=== PATIENT | male | born 1965 | race Caucasian/White ===

== ENCOUNTER 2017-04-21 19:04 | Inpatient (IN) | payer OTHER ==
[2017-04-21] VITALS (8 sets, daily range): BP systolic 83–134; BP diastolic 54–66; PULSE 100–122; RESP 18–22; TEMP 97.6; O2SAT 97–98
[~2017-04-21] VITALS: Ht 182.9 cm; Wt 92.2 kg
[2017-04-21] MEDS ORDERED: SODIUM CHLOR 0.9% 1000 ML INJ 800 ML IV ONE (19:14)
--- NOTE | 2017-04-21 19:31 | PD ---
HPI Chief Complaint: General Weakness Time Seen by Provider: 19:08 Travel History International Travel<30 days: No Contact w/Intl Traveler<30days: No Traveled to known affect area: No History of Present Illness HPI 52-year-old male brought in by ambulance from home for evaluation of weakness. The patient drinks about 18 beers daily and was told that he was diagnosed with hepatitis a couple years ago. He states he was sitting on his chair when he went to stand up he fell forward and was unable to get off the ground. He denies head injury or LOC. States that he has had worsening weakness over the last 2 weeks. No abdominal pain. No fevers or chills. No nausea, vomiting, or diarrhea. Last alcoholic beverage was yesterday. He denies Tylenol use. [facility]LY [facility] Past Medical History Diminished Hearing: No Hepatitis: Yes Integumentary: Yes (maría area excoriated) Tetanus Vaccination: Unknown Influenza Vaccination: No Past Surgical History Surgical History: No Previous Surgery Social History Alcohol Use: Yes (, drinks usually 18 beers a day) Tobacco Use: Yes (1- 1/2 packs a day) Substance Use: No Allergies-Medications (Allergen,Severity, Reaction): Coded Allergies: No Known Allergies (Unverified , 04/21/17) Reported Meds & Prescriptions Reported Meds & Active Scripts Active No Active Prescriptions or Reported Medications Review of Systems Except as stated in HPI: all other systems reviewed are Neg Physical Exam Narrative GENERAL: Well-developed, well-nourished, awake, shivering/diffuse tremors SKIN: Diffuse jaundice, diaphoretic. HEAD: Atraumatic. Normocephalic. EYES: Pupils equal and round. Scleral icterus. No injection or drainage. ENT: No nasal bleeding or discharge. Mucous membranes pink and dry. Ketotic odor on breath. NECK: Trachea midline. No JVD. CARDIOVASCULAR: Tachycardic, regular. RESPIRATORY: No accessory muscle use. Clear to auscultation. Breath sounds equal bilaterally. GASTROINTESTINAL: Abdomen soft, non-tender, nondistended. No fluid wave. MUSCULOSKELETAL: No obvious deformities. No clubbing. No cyanosis. No edema. NEUROLOGICAL: Awake and alert. No obvious cranial nerve deficits. Motor grossly within normal limits. Normal speech. PSYCHIATRIC: Appropriate mood and affect; insight and judgment normal. Data Data Last Documented VS Vital Signs Date Time Temp Pulse Resp B/P (MAP) Pulse Ox O2 Delivery O2 Flow Rate FiO2 04/21/17 21:24 104 18 124/66 (85) Room Air 04/21/17 19:48 97 2.00 04/21/17 19:46 97.6 Orders Orders Electrocardiogram (04/21/17 19:14) Complete Blood Count With Diff (04/21/17 19:14) Comprehensive Metabolic Panel (04/21/17 19:14) Prothrombin Time / Inr (Pt) (04/21/17 19:14) Act Partial Throm Time (Ptt) (04/21/17 19:14) Lactic Acid Sepsis Protocol (04/21/17 19:14) Urinalysis - C+S If Indicated (04/21/17 19:14) Blood Culture (04/21/17 19:14) Chest, Single Ap (04/21/17 19:14) Blood Glucose (04/21/17 19:14) Ecg Monitoring (04/21/17 19:14) Iv Access Insert/Monitor (04/21/17 19:14) Oximetry (04/21/17 19:14) Oxygen Administration (04/21/17 19:14) Ct Abd/Pel W Iv Contrast(Rout) (04/21/17 19:14) Sodium Chlor 0.9% 1000 Ml Inj (Ns 1000 M (04/21/17 19:14) Hepatitis Profile (04/21/17 19:14) Tylenol (Acetaminophen) (04/21/17 19:14) Beta Hydroxybutyrate (Acetone) (04/21/17 19:14) Alcohol (Ethanol) (04/21/17 19:14) Ammonia (04/21/17 19:42) Direct Bilirubin (04/21/17 19:50) Iohexol 350 Inj (Omnipaque 350 Inj) (04/21/17 21:45) Piperacil-Tazo 3.375 Gm Premix (Zosyn 3. (04/21/17 22:15) Sodium Chlor 0.9% 1000 Ml Inj (Ns 1000 M (04/21/17 22:19) Thiamine Inj (Thiamine Inj) (04/21/17 22:30) Vital Signs (Adult) Q4H (04/21/17 22:34) Bedside Glucose LESVIA.AC&HS (04/21/17 22:34) Intake + Output LESVIA.QSHIFT (04/21/17 22:34) Alcohol Withdrawal Asmt-Ciwa Q4HX18 (04/21/17 22:34) ^ Seizure Precautions (04/21/17 22:34) Folic Acid (Folate) (04/22/17 09:00) Thiamine (Vit B1) (Vitamin B1) (04/22/17 09:00) Multivitamins-Minerals Therap (Theragran (04/22/17 09:00) Consult Cm-Etoh Abuse Dc Plan (04/21/17 ) Flumazenil Inj (Romazicon Inj) (04/21/17 22:45) Lorazepam (Ativan) (04/21/17 22:45) Lorazepam Inj (Ativan Inj) (04/21/17 22:45) Lorazepam (Ativan) (04/21/17 22:45) Lorazepam Inj (Ativan Inj) (04/21/17 22:45) Lorazepam Inj (Ativan Inj) (04/21/17 22:45) Lorazepam Inj (Ativan Inj) (04/21/17 22:45) Haloperidol Inj (Haldol Inj) (04/21/17 22:45) Piperacil-Tazo 4.5 Gm Premix (Zosyn 4.5 (04/22/17 04:00) Admit To Inpatient (04/21/17 ) Vital Signs (Adult) Q4H (04/21/17 22:34) Activity Oob With Assistance (04/21/17 22:34) Spooling Operator / Telemetry .CONTINUOUS (04/21/17 22:34) Intake + Output LESVIA.QSHIFT (04/21/17 22:34) Diet Regular Basic (04/22/17 Breakfast) Sodium Chlor 0.9% 1000 Ml Inj (Ns 1000 M (04/21/17 22:34) Sodium Chloride 0.9% Flush (Ns Flush) (04/21/17 22:45) Sodium Chloride 0.9% Flush (Ns Flush) (04/22/17 09:00) Ondansetron Inj (Zofran Inj) (04/21/17 22:45) Comprehensive Metabolic Panel (04/22/17 06:00) Complete Blood Count With Diff (04/22/17 06:00) Prothrombin Time / Inr (Pt) (04/22/17 06:00) Pharmacologic Contraindication (04/21/17 22:34) Morphine Inj (Morphine Inj) (04/21/17 22:45) Oxycodone (Roxicodone) (04/21/17 22:45) Docusate Sodium-Senna (María-Colace) (04/22/17 09:00) Magnesium Hydroxide Liq (Milk Of Magnesi (04/21/17 22:45) Sennosides (Senokot) (04/21/17 22:45) Bisacodyl Supp (Dulcolax Supp) (04/21/17 22:45) Lactulose Liq (Lactulose Liq) (04/21/17 22:45) Inpatient Certification (04/21/17 ) Labs Laboratory Tests Test 04/21/17 19:30 04/21/17 21:17 04/21/17 21:55 04/21/17 22:00 White Blood Count 7.2 TH/MM3 Red Blood Count 3.57 MIL/MM3 Hemoglobin 12.9 GM/DL Hematocrit 38.5 % Mean Corpuscular Volume 108.1 FL Mean Corpuscular Hemoglobin 36.1 PG Mean Corpuscular Hemoglobin Concent 33.4 % Red Cell Distribution Width 17.5 % Platelet Count 70 TH/MM3 Mean Platelet Volume 9.4 FL Neutrophils (%) (Auto) 32.3 % Lymphocytes (%) (Auto) 59.9 % Monocytes (%) (Auto) 7.6 % Eosinophils (%) (Auto) 0.1 % Basophils (%) (Auto) 0.1 % Neutrophils # (Auto) 2.3 TH/MM3 Lymphocytes # (Auto) 4.4 TH/MM3 Monocytes # (Auto) 0.5 TH/MM3 Eosinophils # (Auto) 0.0 TH/MM3 Basophils # (Auto) 0.0 TH/MM3 CBC Comment AUTO DIFF Differential Total Cells Counted 100 Neutrophils % (Manual) 84 % Lymphocytes % 8 % Monocytes % 6 % Eosinophils % 1 % Neutrophils # (Manual) 6.1 TH/MM3 Metamyelocytes 1 % Differential Comment FINAL DIFF MANUAL Platelet Estimate LOW Platelet Morphology Comment NORMAL Red Cell Morphology Comment NORMAL Prothrombin Time 33.1 SEC Prothromb Time International Ratio 2.9 RATIO Activated Partial Thromboplast Time 73.4 SEC Blood Urea Nitrogen 15 MG/DL Creatinine 1.30 MG/DL Random Glucose 75 MG/DL Total Protein 7.1 GM/DL Albumin 2.0 GM/DL Calcium Level 8.3 MG/DL Alkaline Phosphatase 158 U/L Aspartate Amino Transf (AST/SGOT) 424 U/L Alanine Aminotransferase (ALT/SGPT) 128 U/L Total Bilirubin 19.2 MG/DL Sodium Level 118 MEQ/L Potassium Level 3.4 MEQ/L Chloride Level 80 MEQ/L Carbon Dioxide Level 22.7 MEQ/L Anion Gap 15 MEQ/L Estimat Glomerular Filtration Rate 58 ML/MIN Lactic Acid Level 4.7 mmol/L Direct Bilirubin 14.0 MG/DL Ammonia 70 MCMOL/L Acetaminophen Level LESS THAN 2.0 MCG/ML Ethyl Alcohol Level LESS THAN 3 MG/DL B-Hydroxybutyrate 0.98 MMOL/L Urine Color BLACK Urine Turbidity CLOUDY Urine pH 6.5 Urine Specific [place] 1.022 Urine Protein 30 mg/dL Urine Glucose (UA) 100 mg/dL Urine Ketones 15 mg/dL Urine Occult Blood TRACE Urine Nitrite NEG Urine Bilirubin LARGE Urine Leukocyte Esterase TRACE Urine RBC 10-14 /hpf Urine WBC 50-99 /hpf Urine Squamous Epithelial Cells 0-5 /hpf Urine Transitional Epithelial Cells 0-5 /hpf Urine Bacteria FEW /hpf Urine Hyaline Casts 6-9 /lpf Urine Fine Granular Casts 6-9 /lpf Urine Red Blood Cell Casts 0-2 /lpf Urine White Blood Cell Casts 0-2 /lpf Microscopic Urinalysis Comment CATH-CULTURE IND MDM Medical Decision Making Medical Screen Exam Complete: Yes Emergency Medical Condition: Yes Differential Diagnosis Cirrhosis, hepatitis, biliary obstruction, alcohol withdrawal, alcoholic ketoacidosis, ascending cholangitis, liver failure Narrative Course Initial vital signs show heart rate 111, blood pressure 83/54, pulse ox 97% on 2 L nasal cannula, oral temp of 97.6F. Blood pressure improved to 124/66 and heart rate improved to 104 after 2 L of normal saline IV. CBC shows WBC 7.2, hemoglobin 12.9, hematocrit 38.5, platelets 70, MCV 108. CMP is remarkable for sodium 118, chloride 80, T bili 19.2, direct bili 14, AST 424, ALT 128, alkaline phosphatase 158. Ammonia level is 70. Tylenol level is negative. Alcohol level is negative. Beta hydroxybutyrate is 0.98. INR is 2.9. The patient is not on warfarin or Coumadin. This is likely secondary to liver failure. Lactic acid is 4.7. Hepatitis panel ordered. CT abdomen pelvis: CONCLUSION: 1. Hepatomegaly with diffuse severe hypodensity characteristic of steatosis. 2. No evidence of biliary obstructive disease. 3. 10 mm left renal cyst. 4. Otherwise unremarkable exam. Case discussed with on-call hospitalist who will admit the patient to her service. She would like me to contact the on-call product marketing coordinator to make sure the patient can be admitted to [facility]. Case discussed with on-call product marketing coordinator Dr. Wang who states the patient can be admitted here. She recommends antibiotics, hydration, and will see the patient in consultation. Critical Care Narrative Aggregate critical care time was 40 minutes. Time to perform other separately billable procedures was not included in the critical care time. My time did not include minutes spent treating any other patients simultaneously or on activities that did not directly contribute to the patient's treatment. The services I provided to this patient were to treat and/or prevent clinically significant deterioration that could result in: , permanent disability, septic shock, worsening clinical condition I provided critical care services requiring my management, as noted below: Chart data review, documentation time, medication orders and management, vital sign assessments/reviewing monitor data, ordering and reviewing lab tests, ordering and interpreting/reviewing x-rays and diagnostic studies, care of the patient and discussion of the patient with the admitting physicians. Diagnosis Primary Impression: Hyperbilirubinemia Additional Impressions: Hyponatremia Thrombocytopenia Coagulopathy Hyperammonemia Alcohol withdrawal Qualified Codes: F10.230 - Alcohol dependence with withdrawal, uncomplicated Transaminitis Scripts No Active Prescriptions or Reported Meds Major Watkins MD Apr 21, 2017 19:31
[2017-04-21 19:53] LABS: AUTOMATED NEUTROPHIL # 2.3 TH/MM3 (1.8-7.7); BASOPHIL % 0.1 % (0.0-2.0); EOSINOPHIL % 0.1 % (0.0-4.0); HEMATOCRIT 38.5 % (39.0-51.0); LYMPH % 59.9 % (9.0-44.0); LYMPHOCYTE # 4.4 TH/MM3 (1.0-4.8); MEAN CELL VOLUME 108.1 FL (80.0-100.0); MEAN CORPUSCULAR HEMOGLOBIN 36.1 PG (27.0-34.0); MEAN CORPUSCULAR HGB CONC 33.4 % (32.0-36.0); MONO % 7.6 % (0.0-8.0); NEUT % 32.3 % (16.0-70.0); PLATELET COUNT 70 TH/MM3 (150-450); RED BLOOD COUNT 3.57 MIL/MM3 (4.50-5.90); RED CELL DISTRIBUTION WIDTH 17.5 % (11.6-17.2); WHITE BLOOD COUNT 7.2 TH/MM3 (4.0-11.0)
[2017-04-21 20:14] LABS: APTT (PATIENT) 73.4 SEC (24.3-30.1); INTERNATIONAL NORMALIZED RATIO 2.9 RATIO; PROTHROMBIN TIME - PATIENT 33.1 SEC (9.8-11.6)
--- NOTE | 2017-04-21 20:16 | RADRPT ---
EXAM DATE/TIME: 04/21/2017 20:09 [facility] COMPARISON: No previous studies available for comparison. INDICATIONS : Short of breath. MEDICAL HISTORY : None. SURGICAL HISTORY : None. ENCOUNTER: Initial ACUITY: 3 days PAIN SCORE: 7/10 LOCATION: Bilateral chest FINDINGS: A single view of the chest demonstrates the lungs to be symmetrically aerated without evidence of mas s, infiltrate or effusion. The cardiomediastinal contours are unremarkable. Osseous structures are intact. CONCLUSION: No acute disease. Mich Dozier MD on April 21, 2017 at 20:15 Board Certified Radiologist. This report was verified electronically.
[2017-04-21 20:53] LABS: HEMO FLAGS AUTO DIFF
[2017-04-21 21:14] LABS: ALKALINE PHOSPHATASE 158 U/L (45-117); ALT (GPT) 128 U/L (12-78); ANION GAP 15 MEQ/L (5-15); AST (GOT) 424 U/L (15-37); BETA-HYDROXYBUTYRATE 0.98 MMOL/L (0.00-0.39); BICARBONATE 22.7 MEQ/L (21.0-32.0); BLOOD UREA NITROGEN 15 MG/DL (7-18); CHLORIDE 80 MEQ/L (98-107); GLOMERULAR FILTRATION RATE 58 ML/MIN (>89); POTASSIUM 3.4 MEQ/L (3.5-5.1); TOTAL BILIRUBIN ADULT 19.2 MG/DL (0.2-1.0)
[2017-04-21 21:15] LABS: ALCOHOL LESS THAN 3 MG/DL (0-5)
[2017-04-21 21:16] LABS: SODIUM (NA) 118 MEQ/L (136-145)
[2017-04-21 21:30] LABS: ACETAMINOPHEN LESS THAN 2.0 MCG/ML (10.0-30.0)
[2017-04-21] MEDS ORDERED: IOHEXOL 350 MG/ML 10 ML VIAL (for RAD DIAG) IVCONTRAST ONE (21:45)
[2017-04-21 21:46] LABS: LACTIC ACID GHOST NOT REPORTABLE
[2017-04-21 21:48] LABS: EOSINOPHILS 1 % (0-4); METAMYELOCYTES 1 % (0-1); NEUTROPHIL # MANUAL DIFF 6.1 TH/MM3 (1.8-7.7); PLATELET ESTIMATE SMEAR LOW (NORMAL); PLATELET MORPHOLOGY NORMAL (NORMAL); POLYS (SEG NEUTROPHILS) 84 % (16-70); SCAN/DIFF FINAL DIFF MANUAL; WBC DIFF SAMPLE 100
--- NOTE | 2017-04-21 22:07 | RADRPT ---
EXAM DATE/TIME: 04/21/2017 21:33 [facility] COMPARISON: No previous studies available for comparison. INDICATIONS : Jaundice. General weakness x 2 weeks. Evaluate for cirrhosis. IV CONTRAST: 85 cc Omnipaque 350 (iohexol) IV ORAL CONTRAST: No oral contrast ingested. RADIATION DOSE: 18.19 CTDIvol (mGy) MEDICAL HISTORY : Hepatitis A. SURGICAL HISTORY : None. ENCOUNTER: Initial ACUITY: 2 weeks PAIN SCALE: 0/10 LOCATION: Abdomen. TECHNIQUE: Volumetric scanning of the abdomen and pelvis was performed. Using automated exposure control and ad justment of the mA and/or kV according to patient size, radiation dose was kept as low as reasonably achievable to obtain optimal diagnostic quality images. DICOM format image data is available electro nically for review and comparison. FINDINGS: LOWER LUNGS: The visualized lower lungs are clear. LIVER: The liver is enlarged and diffusely hypodense. Portal vein is patent. There are no focal space-occupy ing lesions or evidence of clear duct dilatation. SPLEEN: Normal size without lesion. PANCREAS: Within normal limits. KIDNEYS: Normal in size and shape. There is no mass, stone or hydronephrosis. 10 mm cyst is identified in the upper pole of the left kidney. ADRENAL GLANDS: Within normal limits. VASCULAR: There is no aortic aneurysm. BOWEL/MESENTERY: The stomach, small bowel, and colon demonstrate no acute abnormality. There is no free intraperitone al air or fluid. ABDOMINAL WALL: Within normal limits. RETROPERITONEUM: There is no lymphadenopathy. BLADDER: No wall thickening or mass. REPRODUCTIVE: Within normal limits. INGUINAL: There is no lymphadenopathy or hernia. MUSCULOSKELETAL: Within normal limits for patient age. CONCLUSION: 1. Hepatomegaly with diffuse severe hypodensity characteristic of steatosis. 2. No evidence of biliary obstructive disease. 3. 10 mm left renal cyst. 4. Otherwise unremarkable exam. Mich Dozier MD on April 21, 2017 at 22:00 Board Certified Radiologist. This report was verified electronically.
[2017-04-21] MEDS ORDERED: PIPERACIL-TAZO 3.375 GM PREMIX 50 ML IV ONE (22:15)
[2017-04-21] MEDS ORDERED: SODIUM CHLOR 0.9% 1000 ML INJ 1,000 ML IV SCH (22:19)
[2017-04-21 22:24] LABS: GLUCOSE,URINE 100 mg/dL (NEG); KETONE, URINE 15 mg/dL (NEG); NITRITE,URINE NEG (NEG); PH, URINE 6.5 (5.0-8.5)
[2017-04-21] MEDS ORDERED: THIAMINE INJ 100 MG in SODIUM CHLORIDE 0.9% INJ 100 ML IV ONE (22:30)
[2017-04-21 22:31] LABS: BLOOD, URINE TRACE (NEG)
[2017-04-21 22:32] LABS: URINE COLOR BLACK (YELLW/STRAW)
[2017-04-21 22:34] LABS: RED BLOOD CELL CAST, URINE 0-2 /lpf; WHITE BLOOD CELL CAST, URINE 0-2 /lpf
[2017-04-21 22:35] LABS: COMMENT (UR) CATH-CULTURE IND; CULTURE IF INDICATED CATH CULTURE IND; SQUAMOUS EPITHELIAL CELL URINE 0-5 /hpf (0-5); TRANSITIONAL EPI CELLS, URINE 0-5 /hpf
[2017-04-21 22:36] LABS: BACTERIA, URINE FEW /hpf
[2017-04-21] MEDS ORDERED: MORPHINE SULFATE 4 MG/ML INJ IV PRN (22:45)
[2017-04-21] MEDS ORDERED: HALOPERIDOL LACTATE 5 MG/ML AMP IM PRN (22:45)
[2017-04-21] MEDS ORDERED: ONDANSETRON HCL 4 MG/2 ML VIAL IVP PRN (22:45)
[2017-04-21] MEDS ORDERED: LACTULOSE SYRUP 20 GM/30 ML CUP PO PRN (22:45)
[2017-04-21] MEDS ORDERED: MAGNESIUM HYDROXIDE SUSP 30 ML CUP PO PRN (22:45)
[2017-04-21] MEDS ORDERED: BISACODYL 10 MG SUPP RECTAL PRN (22:45)
[2017-04-21] MEDS ORDERED: LORazepam 1 MG TAB PO PRN (22:45)
[2017-04-21] MEDS ORDERED: LORazepam 2 MG/ML VIAL IV PUSH PRN ×3 (22:45)
[2017-04-21] MEDS ORDERED: SODIUM CHLORIDE 0.9% FLUSH 10 ML FLUSH IV FLUSH PRN (22:45)
[2017-04-21] MEDS ORDERED: FLUMAZENIL 0.5 MG/5 ML VIAL IV PUSH PRN (22:45)
[2017-04-21] MEDS ORDERED: LORazepam 2 MG TAB PO PRN (22:45)
[2017-04-21] MEDS ORDERED: SENNOSIDES 8.6 MG TAB PO PRN (22:45)
[2017-04-21] MEDS: SODIUM CHLOR 0.9% 1000 ML INJ 1,000 ML IV SCH (23:03)
[2017-04-22] VITALS (26 sets, daily range): BP systolic 97–121; BP diastolic 56–78; PULSE 82–102; RESP 13–30; TEMP 97.9–98.1; O2SAT 92–100
[2017-04-22] MEDS: PIPERACIL-TAZO 4.5 GM PREMIX 100 ML IV SCH ×4 (04:20→20:40)
[2017-04-22 06:42] LABS: AUTOMATED NEUTROPHIL # 5.1 TH/MM3 (1.8-7.7); BASOPHIL % 0.6 % (0.0-2.0); EOSINOPHIL # 0.1 TH/MM3 (0-0.4); EOSINOPHIL % 1.1 % (0.0-4.0); HEMATOCRIT 32.7 % (39.0-51.0); LYMPH % 16.8 % (9.0-44.0); LYMPHOCYTE # 1.2 TH/MM3 (1.0-4.8); MEAN CELL VOLUME 105.5 FL (80.0-100.0); MEAN CORPUSCULAR HEMOGLOBIN 36.3 PG (27.0-34.0); MEAN CORPUSCULAR HGB CONC 34.4 % (32.0-36.0); MONO % 10.1 % (0.0-8.0); NEUT % 71.4 % (16.0-70.0); PLATELET COUNT 53 TH/MM3 (150-450); PROTHROMBIN TIME - PATIENT 35.1 SEC (9.8-11.6); RED CELL DISTRIBUTION WIDTH 17.4 % (11.6-17.2); WHITE BLOOD COUNT 7.1 TH/MM3 (4.0-11.0)
[2017-04-22 06:49] LABS: HEMO FLAGS AUTO DIFF
[2017-04-22] MEDS: SODIUM CHLORIDE 0.9% FLUSH 10 ML FLUSH IV FLUSH SCH ×2 (07:12→20:40)
[2017-04-22 07:19] LABS: BICARBONATE 23.9 MEQ/L (21.0-32.0); CALCIUM-PROTEIN CORRECTED 7.7 MG/DL (8.5-10.1); TOTAL BILIRUBIN ADULT 17.8 MG/DL (0.2-1.0)
[2017-04-22] MEDS: MULTIVITAMINS/MINERALS THERAPEUTIC TAB PO SCH (08:27)
[2017-04-22] MEDS: FOLIC ACID 1 MG TAB PO SCH (08:27)
[2017-04-22] MEDS: DOCUSATE SODIUM 50 MG/SENNA 8.6 MG TAB PO SCH ×2 (08:27→20:40)
[2017-04-22] MEDS: THIAMINE HCL 100 MG TAB PO SCH (08:27)
[2017-04-22 09:00] LABS: PLATELET ESTIMATE SMEAR LOW (NORMAL); PLATELET MORPHOLOGY NORMAL (NORMAL); SCAN/DIFF AUTO DIFF CONFIRMED; TARGET CELLS 2+ (NORMAL)
[2017-04-22] MEDS: SODIUM CHLOR 0.9% 1000 ML INJ 1,000 ML IV SCH ×3 (09:24→20:43)
--- NOTE | 2017-04-22 09:53 | EKG ---
Date Performed: 04/21/2017 Time Performed: 19:24:13 PTAGE: 52 years EKG: Likely sinus or ectopic atrial rhythm; although, there is heavy baseline artifact with bijan mmended repeat EKG to exclude atrial dysrhythmia LEFT ATRIAL ENLARGEMENT NONSPECIFIC T-WAVE ABNORMALI TY ABNORMAL ECG NO PREVIOUS TRACING DOCTOR: Brett Berrios Interpretating Date/Time 04/22/2017 09:51:14
--- NOTE | 2017-04-22 11:36 | HHI.HP ---
[facility] Primary Care Physician No Primary Care Physician Admission Diagnosis hyperbilirubinemia, hepatic steatosis, alcohol withdrawal Diagnoses: (1) Acute alcoholic hepatitis (2) Fall (3) Generalized weakness (4) Hyponatremia (5) Thrombocytopenia (6) Hyperammonemia (7) Alcohol withdrawal (8) Hyperbilirubinemia (9) Coagulopathy Chief Complaint: "I fell at home and I couldn't get up" Travel History International Travel<30 Days: No Contact w/Intl Traveler <30 Da: No Traveled to Known Affected Are: No History of Present Illness This is a 52-year-old male with past medical history of alcoholism who presented to the ER for evaluation of weakness. The patient states that he fell out of the chair home and was unable to get up and so he called [facility]. He denied injury or loss of consciousness. The patient states he is a heavy drinker and has been told that he has liver disease. He states his last drink was 4 days ago. He does endorse some hallucinations and thought he saw Rhonda in his room this morning. He denies history of alcohol withdrawal seizures or delirium tremens. He denies Tylenol use. The emergency department he was found to have sodium of 118 and elevation of liver enzymes with severe hyperbilirubinemia. The patient also complains of rash and pain around his scrotum. The patient denies pedal edema. He does endorse 25 pound weight loss over the past year which was unintentional. The patient denies blood in his stools, history of varices. Denies abdominal pain nausea vomiting diarrhea fevers or chills. Review of Systems Constitutional: DENIES: Fever, Chills Respiratory: DENIES: Cough, Shortness of breath Cardiovascular: DENIES: Chest pain, Palpitations, Syncope, Lower Extremity Edema Gastrointestinal: DENIES: Abdominal pain, Black stools, Bloody stools, Constipation, Diarrhea, Nausea, Vomiting Genitourinary: COMPLAINS OF: Testicular Pain, Testicular Swelling, DENIES: Urgency, Hematuria Integumentary: DENIES: Pruritus, Rash Neurologic: COMPLAINS OF: Abnormal gait (poor balance), DENIES: Localized weakness, Seizures Psychiatric: COMPLAINS OF: Hallucinations, DENIES: Anxiety, Confusion Past Family Social History Past Medical History Alcoholism Patient denies heart or lung disease Past Surgical History No surgical history Reported Medications Patient denies taking any medications at home Allergies: Coded Allergies: No Known Allergies (Unverified , 04/21/17) Family History Negative for liver disease Social History He does smoke about a pack of cigarettes a day. He lives by himself in a house. Previously drinking 18 beers a day. Physical Exam Vital Signs Vital Signs Date Time Temp Pulse Resp B/P (MAP) Pulse Ox O2 Delivery O2 Flow Rate FiO2 04/22/17 10:38 96 21 04/22/17 08:50 04/22/17 07:00 92 18 118/60 (79) 99 Room Air 04/22/17 07:00 Room Air 04/22/17 05:45 90 18 103/56 (72) 99 Nasal Cannula 2.00 04/22/17 04:45 92 102/57 (72) 98 Nasal Cannula 2.00 04/22/17 04:20 98 Nasal Cannula 04/22/17 03:45 96 117/62 (80) 98 Nasal Cannula 2.00 04/22/17 02:45 100 104/60 (75) 99 Nasal Cannula 2.00 04/22/17 01:45 100 109/59 (76) 100 Nasal Cannula 2.00 04/22/17 00:45 100 106/59 (75) 98 Nasal Cannula 2.00 04/21/17 23:52 103 18 95/57 (70) 97 Nasal Cannula 2.00 04/21/17 23:10 100 18 103/57 (72) 98 Nasal Cannula 2.00 04/21/17 21:24 104 18 124/66 (85) Room Air 04/21/17 21:05 102 116/66 (83) 04/21/17 19:54 122 22 134/56 (82) 04/21/17 19:48 97 Nasal Cannula 2.00 04/21/17 19:47 97 Nasal Cannula 2.00 04/21/17 19:46 97.6 111 83/54 (64) 97 Nasal Cannula 2.00 04/21/17 19:26 113 Nasal Cannula 2.00 04/21/17 19:09 97.6 111 20 83/54 (64) 97 Physical Exam GENERAL: Well-nourished, well-developed patient. SKIN: Markedly jaundiced. Warm and dry. HEAD: Normocephalic. EYES: Positive scleral icterus. No injection or drainage. NECK: Supple, trachea midline. No JVD or lymphadenopathy. CARDIOVASCULAR: Regular rate and rhythm without murmurs, gallops, or rubs. RESPIRATORY: Breath sounds equal bilaterally. No accessory muscle use. GASTROINTESTINAL: Bowel sounds normoactive. No ascites. Abdomen soft, non- tender, nondistended. EXTREMITIES: 1+ pitting pedal edema bilaterally. NEUROLOGICAL: Awake, alert, and oriented x 3. Non-focal. Laboratory Laboratory Tests Test 04/21/17 19:30 04/21/17 21:17 04/21/17 21:55 04/21/17 22:00 White Blood Count 7.2 Red Blood Count 3.57 Hemoglobin 12.9 Hematocrit 38.5 Mean Corpuscular Volume 108.1 Mean Corpuscular Hemoglobin 36.1 Mean Corpuscular Hemoglobin Concent 33.4 Red Cell Distribution Width 17.5 Platelet Count 70 Mean Platelet Volume 9.4 Neutrophils (%) (Auto) 32.3 Lymphocytes (%) (Auto) 59.9 Monocytes (%) (Auto) 7.6 Eosinophils (%) (Auto) 0.1 Basophils (%) (Auto) 0.1 Neutrophils # (Auto) 2.3 Lymphocytes # (Auto) 4.4 Monocytes # (Auto) 0.5 Eosinophils # (Auto) 0.0 Basophils # (Auto) 0.0 CBC Comment AUTO DIFF Differential Total Cells Counted 100 Neutrophils % (Manual) 84 Lymphocytes % 8 Monocytes % 6 Eosinophils % 1 Neutrophils # (Manual) 6.1 Metamyelocytes 1 Differential Comment FINAL DIFF MANUAL Platelet Estimate LOW Platelet Morphology Comment NORMAL Red Cell Morphology Comment NORMAL Prothrombin Time 33.1 Prothromb Time International Ratio 2.9 Activated Partial Thromboplast Time 73.4 Blood Urea Nitrogen 15 Creatinine 1.30 Random Glucose 75 Total Protein 7.1 Albumin 2.0 Calcium Level 8.3 Alkaline Phosphatase 158 Aspartate Amino Transf (AST/SGOT) 424 Alanine Aminotransferase (ALT/SGPT) 128 Total Bilirubin 19.2 Sodium Level 118 Potassium Level 3.4 Chloride Level 80 Carbon Dioxide Level 22.7 Anion Gap 15 Estimat Glomerular Filtration Rate 58 Lactic Acid Level 4.7 3.0 Direct Bilirubin 14.0 Ammonia 70 Acetaminophen Level LESS THAN 2.0 Ethyl Alcohol Level LESS THAN 3 B-Hydroxybutyrate 0.98 Urine Color BLACK Urine Turbidity CLOUDY Urine pH 6.5 Urine Specific [place] 1.022 Urine Protein 30 Urine Glucose (UA) 100 Urine Ketones 15 Urine Occult Blood TRACE Urine Nitrite NEG Urine Bilirubin LARGE Urine Leukocyte Esterase TRACE Urine RBC 10-14 Urine WBC 50-99 Urine Squamous Epithelial Cells 0-5 Urine Transitional Epithelial Cells 0-5 Urine Bacteria FEW Urine Hyaline Casts 6-9 Urine Fine Granular Casts 6-9 Urine Red Blood Cell Casts 0-2 Urine White Blood Cell Casts 0-2 Microscopic Urinalysis Comment CATH-CULTURE IND Test 04/22/17 06:00 White Blood Count 7.1 Red Blood Count 3.10 Hemoglobin 11.2 Hematocrit 32.7 Mean Corpuscular Volume 105.5 Mean Corpuscular Hemoglobin 36.3 Mean Corpuscular Hemoglobin Concent 34.4 Red Cell Distribution Width 17.4 Platelet Count 53 Mean Platelet Volume 9.1 Neutrophils (%) (Auto) 71.4 Lymphocytes (%) (Auto) 16.8 Monocytes (%) (Auto) 10.1 Eosinophils (%) (Auto) 1.1 Basophils (%) (Auto) 0.6 Neutrophils # (Auto) 5.1 Lymphocytes # (Auto) 1.2 Monocytes # (Auto) 0.7 Eosinophils # (Auto) 0.1 Basophils # (Auto) 0.0 CBC Comment AUTO DIFF Differential Comment AUTO DIFF CONFIRMED Platelet Estimate LOW Platelet Morphology Comment NORMAL Target Cells 2+ Prothrombin Time 35.1 Prothromb Time International Ratio 3.0 Blood Urea Nitrogen 18 Creatinine 1.10 Random Glucose 92 Total Protein 6.2 Albumin 1.8 Calcium Level 7.5 Alkaline Phosphatase 133 Aspartate Amino Transf (AST/SGOT) 369 Alanine Aminotransferase (ALT/SGPT) 111 Total Bilirubin 17.8 Sodium Level 122 Potassium Level 3.0 Chloride Level 86 Carbon Dioxide Level 23.9 Anion Gap 12 Estimat Glomerular Filtration Rate 70 Protein Corrected Calcium 7.7 Date/Time Source Procedure Growth Status 04/21/17 19:35 Blood Peripheral Aerobic Blood Culture - Preliminary NO GROWTH IN 1 DAY Resulted 04/21/17 19:35 Blood Peripheral Anaerobic Blood Culture - Preliminary NO GROWTH IN 1 DAY Resulted 04/21/17 21:55 Urine Catheterized Urine Urine Culture Pending Received Result Diagram: 04/22/17 0600 04/22/17 0600 Imaging Last Impressions Chest X-Ray 04/21/171913 Signed Impressions: Service Date/Time: Friday, April 21, 2017 20:09 - CONCLUSION: No acute disease. Mich Dozier MD Abdomen/Pelvis CT 04/21/171913 Signed Impressions: Service Date/Time: Friday, April 21, 2017 21:33 - CONCLUSION: 1. Hepatomegaly with diffuse severe hypodensity characteristic of steatosis. 2. No evidence of biliary obstructive disease. 3. 10 mm left renal cyst. 4. Otherwise unremarkable exam. Mich Dozier MD Caprini VTE Risk Assessment Caprini VTE Risk Assessment: Mod/High Risk (score >= 2) VTE Pharm Contraindication: Thrombocytopenia(<50) Caprini Risk Assessment Model Point Value = 1 Point Value = 2 Point Value = 3 Point Value = 5 Age 41-60 Minor surgery BMI > 25 kg/m2 Swollen legs Varicose veins or History of unexplained or recurrent spontaneous Oral contraceptives or hormone replacement Sepsis (< 1 month) Serious lung disease, including pneumonia (< 1 month) Abnormal pulmonary function Acute myocardial infarction Congestive heart failure (< 1 month) History of inflammatory bowel disease Medical patient at bed rest Age 61-74 Arthroscopic surgery Major open surgery (> 45 min) Laparoscopic surgery (> 45 min) Malignancy Confined to bed (> 72 hours) Immobilizing plaster cast Central venous access Age >= 75 History of VTE Family history of VTE Factor V Leiden Prothrombin [id number] Lupus anticoagulant Anticardiolipin antibodies Elevated serum homocysteine Heparin-induced thrombocytopenia Other congenital or acquired thrombophilia Stroke (< 1 month) Elective arthroplasty Hip, pelvis, or leg fracture Acute spinal cord injury (< 1 month) Prophylaxis Regimen Total Risk Factor Score Risk Level Prophylaxis Regimen 0-1 Low Early ambulation 2 Moderate Order ONE of the following: *Sequential Compression Device (SCD) *Heparin 5000 units SQ BID 3-4 Higher Order ONE of the following medications: *Heparin 5000 units SQ TID *Enoxaparin/Lovenox 40 mg SQ daily (WT < 150 kg, CrCl > 30 mL/min) *Enoxaparin/Lovenox 30 mg SQ daily (WT < 150 kg, CrCl > 10-29 mL/min) *Enoxaparin/Lovenox 30 mg SQ BID (WT < 150 kg, CrCl > 30 mL/min) AND/OR *Sequential Compression Device (SCD) 5 or more Highest Order ONE of the following medications: *Heparin 5000 units SQ TID (Preferred with Epidurals) *Enoxaparin/Lovenox 40 mg SQ daily (WT < 150 kg, CrCl > 30 mL/min) *Enoxaparin/Lovenox 30 mg SQ daily (WT < 150 kg, CrCl > 10-29 mL/min) *Enoxaparin/Lovenox 30 mg SQ BID (WT < 150 kg, CrCl > 30 mL/min) AND *Sequential Compression Device (SCD) Assessment and Plan Assessment and Plan -Generalized weakness status post fall at home. Likely deconditioning secondary to alcoholism. Consult physical therapy. -Alcoholic liver disease with acute alcoholic hepatitis and severe hyperbilirubinemia. Abdominal CT scan showed hepatomegaly with diffuse severe hypodensity characteristic of steatosis. Patient counseled on alcohol cessation and progressing to cirrhosis and its complications. Continue supportive care, follow CMP. -Alcohol withdrawal syndrome with hallucinosis - high risk for progressing further to DVTs. Continue alcohol withdrawal pathway and rally pack. -Severe hyponatremia, hypervolemic secondary to cirrhosis. Sodium slowly correcting. Continue IV fluids. -Hypokalemia. Check magnesium. Replete potassium. -Thrombocytopenia. Secondary to liver disease. Monitor platelets. -DVT prophylaxis with SCDs. Problem Qualifiers (1) Alcohol withdrawal: Qualified Codes: F10.230 - Alcohol dependence with withdrawal, uncomplicated Liza Rojo MD Apr 22, 2017 11:36
[2017-04-22] MEDS: NYSTATIN 100,000 UNIT/GM CREAM 15 GM TOPICAL SCH ×2 (12:00→20:39)
[2017-04-22] MEDS ORDERED: POTASSIUM CHLORIDE 20 MEQ CONTROLLED RELEASE TAB PO ONE (12:00)
--- NOTE | 2017-04-22 17:16 | MB ---
cc: ABDIFATAH NERI M.D. DATE OF CONSULTATION 04/22/2017 DATE OF [address] Rojo REASON FOR REFERRAL Severe jaundice and alcohol liver disease. HISTORY OF THE PRESENT ILLNESS Thank you for the consultation. A 52-year-old male with significant history of alcoholism. The patient drinks about 18 beers on a daily basis. The patient came to the emergency room after calling 04-13- because he was not able to stand up and fall forward from sitting down. The patient stated that he has been feeling weak in the last few weeks and change in his urination color with pasty stool and deep jaundice. The patient denied any pain but he has overall weakness. He told me that he did not know that he had liver disease or cirrhosis until he was told that yesterday. The patient denied any other symptoms except distension of his abdomen. REVIEW OF SYSTEMS All 12-point negative except HPI. PAST SURGICAL HISTORY Negative. PAST MEDICAL HISTORY Significant alcohol disease, otherwise negative. ALLERGIES NO KNOWN DRUG ALLERGIES. FAMILY HISTORY Noncontributory SOCIAL HISTORY Positive for tobacco and severe alcoholism. MEDICATIONS None at home. PHYSICAL EXAMINATION GENERAL: Alert, oriented no acute distress. Severe jaundice. HEENT: Pupils are round and reactive to light. HEENT: severe scleral icterus. NECK: Supple. CARDIOVASCULAR: Regular rate and rhythm. ABDOMEN: Soft, obese, questionable distension if there is any ascites it is minimal. Nontender. EXTREMITIES: +1 edema. NEUROLOGIC: Alert, oriented, in no acute distress. No focal abnormality. No strength abnormality. PSYCHOLOGIC: Appropriate. LABORATORY DATA White count 7.1, hemoglobin 11.2 which is stable from yesterday it was 12.9. Platelet 53. INR 3.0. Sodium 122, potassium 3.0, creatinine 1.1, total bilirubin 17.8, AST 369, ALT 111, alk phos 133, albumin 1.8. Hepatitis profile is pending. IMAGING Abdominal CT scan showed hepatomegaly with severe hypodensity consistent with steatosis. No biliary obstruction. ASSESSMENT/PLAN A 52-year-old male with alcohol liver disease, possible cirrhosis but most likely alcohol hepatitis with low platelets could be from cirrhosis versus bone marrow suppression and his discriminating factor is more than 30. We can start him on pentoxifylline to try to help with alcohol hepatitis. Meanwhile we will continue supportive care, watch for bleeding. At some point the patient might need upper endoscopy to rule out varices even though the CT scan did not show that. We will follow up with you. Thank you. MD EDWARDO Medina/CALVIN /4:37 PM /5:02 PM
[2017-04-22] MEDS: PENTOXIFYLLINE 400 MG CONTROLLED RELEASE TAB PO SCH (20:40)
[2017-04-22] MEDS: RESP: ALBUTEROL 2.5 MG/IPRATROPIUM 0.5 MG NEB (PRN) NEB (21:39)
[2017-04-23] VITALS (19 sets, daily range): BP systolic 107–137; BP diastolic 68–81; PULSE 92–124; RESP 17–23; TEMP 97.6–98.7; O2SAT 92–98
[2017-04-23] MEDS: PIPERACIL-TAZO 4.5 GM PREMIX 100 ML IV SCH ×4 (04:31→23:16)
[2017-04-23 06:06] LABS: HEMATOCRIT 34.9 % (39.0-51.0); MEAN CELL VOLUME 105.2 FL (80.0-100.0); MEAN CORPUSCULAR HEMOGLOBIN 36.3 PG (27.0-34.0); MEAN CORPUSCULAR HGB CONC 34.5 % (32.0-36.0); PLATELET COUNT 55 TH/MM3 (150-450); RED BLOOD COUNT 3.32 MIL/MM3 (4.50-5.90); RED CELL DISTRIBUTION WIDTH 17.4 % (11.6-17.2); WHITE BLOOD COUNT 6.1 TH/MM3 (4.0-11.0)
[2017-04-23 06:17] LABS: HEMO FLAGS AUTO DIFF
[2017-04-23] MEDS: SODIUM CHLOR 0.9% 1000 ML INJ 1,000 ML IV SCH (06:57)
[2017-04-23 07:00] LABS: INTERNATIONAL NORMALIZED RATIO 2.9 RATIO; PROTHROMBIN TIME - PATIENT 33.7 SEC (9.8-11.6)
[2017-04-23 08:00] LABS: EOSINOPHILS 3 % (0-4); NEUTROPHIL # MANUAL DIFF 4.8 TH/MM3 (1.8-7.7); PLATELET ESTIMATE SMEAR LOW (NORMAL); PLATELET MORPHOLOGY NORMAL (NORMAL); POLYS (SEG NEUTROPHILS) 78 % (16-70); SCAN/DIFF FINAL DIFF MANUAL; TARGET CELLS 2+ (NORMAL); WBC DIFF SAMPLE 100
[2017-04-23 08:26] LABS: ALKALINE PHOSPHATASE 133 U/L (45-117); ALT (GPT) 102 U/L (12-78); ANION GAP 11 MEQ/L (5-15); AST (GOT) 327 U/L (15-37); BICARBONATE 22.5 MEQ/L (21.0-32.0); BLOOD UREA NITROGEN 13 MG/DL (7-18); CHLORIDE 92 MEQ/L (98-107); GLOMERULAR FILTRATION RATE 116 ML/MIN (>89); MAGNESIUM 2.3 MG/DL (1.5-2.5); POTASSIUM 3.3 MEQ/L (3.5-5.1); SODIUM (NA) 125 MEQ/L (136-145); TOTAL BILIRUBIN ADULT 19.4 MG/DL (0.2-1.0)
[2017-04-23] MEDS: MULTIVITAMINS/MINERALS THERAPEUTIC TAB PO SCH (08:26)
[2017-04-23] MEDS: LORazepam 2 MG/ML VIAL IV PUSH PRN ×2 (08:26→15:21)
[2017-04-23] MEDS: THIAMINE HCL 100 MG TAB PO SCH (08:26)
[2017-04-23] MEDS: DOCUSATE SODIUM 50 MG/SENNA 8.6 MG TAB PO SCH ×2 (08:26→21:49)
[2017-04-23] MEDS: SODIUM CHLORIDE 0.9% FLUSH 10 ML FLUSH IV FLUSH SCH ×2 (08:26→21:00)
[2017-04-23] MEDS: FOLIC ACID 1 MG TAB PO SCH (08:26)
[2017-04-23] MEDS: NYSTATIN 100,000 UNIT/GM CREAM 15 GM TOPICAL SCH ×2 (08:27→21:48)
[2017-04-23] MEDS: RESP: ALBUTEROL 2.5 MG/IPRATROPIUM 0.5 MG NEB (PRN) NEB ×3 (08:34→22:30)
[2017-04-23] MEDS: PENTOXIFYLLINE 400 MG CONTROLLED RELEASE TAB PO SCH ×2 (09:00→21:49)
--- NOTE | 2017-04-23 10:22 | HHI.PR ---
Subjective Remarks Mr. Craft is somnolent this morning. He denies confusion or tremors. Objective Vitals Vital Signs Date Time Temp Pulse Resp B/P (MAP) Pulse Ox O2 Delivery O2 Flow Rate FiO2 04/23/17 10:11 18 04/23/17 08:36 95 21 04/23/17 04:15 100 04/23/17 04:15 97.6 100 20 125/76 (92) 96 04/23/17 00:01 98.7 92 18 112/75 (87) 93 04/23/17 00:00 96 04/22/17 23:01 92 18 117/77 (90) 97 04/22/17 22:01 84 15 109/70 (83) 95 04/22/17 21:39 97 21 04/22/17 21:01 88 18 116/78 (91) 96 04/22/17 20:01 98.1 94 18 110/67 (81) 96 04/22/17 20:00 94 04/22/17 20:00 94 04/22/17 19:01 82 15 109/74 (86) 96 04/22/17 18:00 84 04/22/17 17:00 82 04/22/17 17:00 82 13 113/65 (81) 95 04/22/17 17:00 82 13 113/65 (81) 95 04/22/17 16:00 90 15 112/69 (83) 93 04/22/17 16:00 98.1 90 15 112/69 (83) 93 04/22/17 16:00 90 04/22/17 15:00 86 15 121/70 (87) 97 04/22/17 15:00 86 04/22/17 15:00 86 15 121/70 (87) 97 04/22/17 14:00 86 04/22/17 14:00 86 16 103/65 (78) 94 04/22/17 14:00 86 16 103/65 (78) 94 04/22/17 13:00 90 16 116/65 (82) 92 04/22/17 13:00 90 16 116/65 (82) 92 04/22/17 13:00 90 04/22/17 12:00 92 04/22/17 12:00 98.0 92 19 112/66 (81) 95 04/22/17 12:00 92 19 112/66 (81) 95 04/22/17 11:00 92 16 100/63 (75) 95 04/22/17 11:00 92 16 100/63 (75) 95 04/22/17 10:38 96 21 I/O 04/22/17 04/22/17 04/22/17 04/23/17 04/23/17 04/23/17 07:00 15:00 23:00 07:00 15:00 23:00 Intake Total 350 ml 1850 ml 1237 ml Output Total 500 ml 275 ml 800 ml Balance -150 ml 1850 ml 962 ml -800 ml Intake Oral 750 ml 240 ml IV Total 350 ml 1100 ml 997 ml Output Urine Total 500 ml 275 ml 800 ml # Voids 2 2 # Bowel Movements 0 3 Result Diagram: 04/23/1754104/23/17541 Objective Remarks GENERAL: Well-nourished, well-developed patient. SKIN: Markedly jaundiced. Warm and dry. HEAD: Normocephalic. EYES: Positive scleral icterus. No injection or drainage. NECK: Supple, trachea midline. No JVD or lymphadenopathy. CARDIOVASCULAR: Regular rate and rhythm without murmurs, gallops, or rubs. RESPIRATORY: Breath sounds equal bilaterally. No accessory muscle use. GASTROINTESTINAL: Bowel sounds normoactive. No ascites. Abdomen soft, non- tender, nondistended. EXTREMITIES: 1+ pitting pedal edema bilaterally. NEUROLOGICAL: Somnolent, briefly becomes awake but then goes back to sleep. A/P Problem List: (1) Acute alcoholic hepatitis ICD Code: K70.10 - Alcoholic hepatitis without ascites (2) Fall ICD Code: W19.XXXA - Unspecified fall, initial encounter (3) Generalized weakness ICD Code: R53.1 - Weakness (4) Hyponatremia ICD Code: E87.1 - Hypo-osmolality and hyponatremia Status: Acute (5) Thrombocytopenia ICD Code: D69.6 - Thrombocytopenia, unspecified Status: Acute (6) Hyperammonemia ICD Code: E72.20 - Disorder of urea cycle metabolism, unspecified Status: Acute (7) Alcohol withdrawal ICD Code: F10.239 - Alcohol dependence with withdrawal, unspecified Status: Acute (8) Hyperbilirubinemia ICD Code: E80.6 - Other disorders of bilirubin metabolism Status: Acute (9) Coagulopathy ICD Code: D68.9 - Coagulation defect, unspecified Status: Acute Assessment and Plan -Generalized weakness status post fall at home. Likely deconditioning secondary to alcoholism. Consult physical therapy. -Alcoholic liver disease with acute alcoholic hepatitis and severe hyperbilirubinemia. Abdominal CT scan showed hepatomegaly with diffuse severe hypodensity characteristic of steatosis. Patient counseled on alcohol cessation and progressing to cirrhosis and its complications. Continue supportive care, follow CMP. Started on pentoxifylline per gastroenterology. -Alcohol withdrawal syndrome with hallucinosis - high risk for progressing further to DVTs. Continue alcohol withdrawal pathway and rally pack. -Severe hyponatremia, hypervolemic secondary to cirrhosis. Sodium slowly correcting. Continue IV fluids. -Hypokalemia. Check magnesium. Replete potassium. -Thrombocytopenia. Secondary to liver disease. Monitor platelets. -Candidiasis and edema of scrotum. Continue nystatin cream and elevation. -DVT prophylaxis with SCDs. Problem Qualifiers (1) Alcohol withdrawal: Qualified Codes: F10.230 - Alcohol dependence with withdrawal, uncomplicated Liza Rojo MD Apr 23, 2017 10:22
--- NOTE | 2017-04-23 12:59 | HHI.GIFU ---
Subjective Remarks Patient was seen and examined, patient very somnolent today and sleepy hardly to arouse. He seems to have hallucinations and altered by the nurse staff Objective Vitals I&O Vital Signs Date Time Temp Pulse Resp B/P (MAP) Pulse Ox O2 Delivery O2 Flow Rate FiO2 04/23/17 10:11 18 04/23/17 08:36 95 21 04/23/17 04:15 100 04/23/17 04:15 97.6 100 20 125/76 (92) 96 04/23/17 00:01 98.7 92 18 112/75 (87) 93 04/23/17 00:00 96 04/22/17 23:01 92 18 117/77 (90) 97 04/22/17 22:01 84 15 109/70 (83) 95 04/22/17 21:39 97 21 04/22/17 21:01 88 18 116/78 (91) 96 04/22/17 20:01 98.1 94 18 110/67 (81) 96 04/22/17 20:00 94 04/22/17 20:00 94 04/22/17 19:01 82 15 109/74 (86) 96 04/22/17 18:00 84 04/22/17 17:00 82 04/22/17 17:00 82 13 113/65 (81) 95 04/22/17 17:00 82 13 113/65 (81) 95 04/22/17 16:00 90 15 112/69 (83) 93 04/22/17 16:00 98.1 90 15 112/69 (83) 93 04/22/17 16:00 90 04/22/17 15:00 86 15 121/70 (87) 97 04/22/17 15:00 86 04/22/17 15:00 86 15 121/70 (87) 97 04/22/17 14:00 86 04/22/17 14:00 86 16 103/65 (78) 94 04/22/17 14:00 86 16 103/65 (78) 94 04/22/17 13:00 90 16 116/65 (82) 92 04/22/17 13:00 90 16 116/65 (82) 92 04/22/17 13:00 90 I/O 04/22/17 04/22/17 04/22/17 04/23/1717 9/11/17 07:00 15:00 23:00 07:00 15:00 23:00 Intake Total 350 ml 1850 ml 1237 ml Output Total 500 ml 275 ml 800 ml Balance -150 ml 1850 ml 962 ml -800 ml Intake Oral 750 ml 240 ml IV Total 350 ml 1100 ml 997 ml Output Urine Total 500 ml 275 ml 800 ml # Voids 2 2 # Bowel Movements 0 3 Laboratory Laboratory Tests Test 04/23/17 05:42 White Blood Count 6.1 Red Blood Count 3.32 Hemoglobin 12.0 Hematocrit 34.9 Mean Corpuscular Volume 105.2 Mean Corpuscular Hemoglobin 36.3 Mean Corpuscular Hemoglobin Concent 34.5 Red Cell Distribution Width 17.4 Platelet Count 55 Mean Platelet Volume 9.4 CBC Comment AUTO DIFF Differential Total Cells Counted 100 Neutrophils % (Manual) 78 Lymphocytes % 15 Monocytes % 4 Eosinophils % 3 Neutrophils # (Manual) 4.8 Differential Comment FINAL DIFF MANUAL Platelet Estimate LOW Platelet Morphology Comment NORMAL Target Cells 2+ Prothrombin Time 33.7 Prothromb Time International Ratio 2.9 Blood Urea Nitrogen 13 Creatinine 0.71 Random Glucose 98 Total Protein 6.3 Albumin 1.7 Calcium Level 7.8 Magnesium Level 2.3 Alkaline Phosphatase 133 Aspartate Amino Transf (AST/SGOT) 327 Alanine Aminotransferase (ALT/SGPT) 102 Total Bilirubin 19.4 Sodium Level 125 Potassium Level 3.3 Chloride Level 92 Carbon Dioxide Level 22.5 Anion Gap 11 Estimat Glomerular Filtration Rate 116 Ammonia 33 Date/Time Source Procedure Growth Status 04/21/17 19:35 Blood Peripheral Aerobic Blood Culture - Preliminary NO GROWTH IN 2 DAYS Resulted 04/21/17 19:35 Blood Peripheral Anaerobic Blood Culture - Preliminary NO GROWTH IN 2 DAYS Resulted 04/21/17 21:55 Urine Catheterized Urine Urine Culture - Final 50-100,000 CFU/ML MIXED ROZ... Complete Physical Exam HEENT: Pupils round and reactive to light; normocephalic; atraumatic; no jaundice. Throat is clear. NECK: Neck is supple, no JVD, no lymphadenopathy. CHEST: Chest is clear to auscultation and percussion. CARDIAC: Regular rate and rhythm with no murmur gallop or rubs. ABDOMEN: Soft, nondistended, nontender; no hepatosplenomegaly; bowel sounds are present in all four quadrants. EXTREMITIES: No clubbing, cyanosis, or edema. SKIN: Normal; no rash; no jaundice. CASH POSTING CLERK: No focal deficits; very sleepy today most likely secondary to alcohol withdrawal and sedation. Assessment and Plan Plan Severe alcohol liver disease with possible alcoholic hepatitis and alcohol withdrawal syndrome. Patient seems to be hallucinating. Severe elevation of his liver function tests Recommendation Watch for DT Ammonia is normal Continue pentoxifylline Overall guarded prognosis Nadine Lucas MD Apr 23, 2017 12:59
[2017-04-24] VITALS (15 sets, daily range): BP systolic 111–131; BP diastolic 66–81; PULSE 94–116; RESP 16–36; TEMP 97.2–98.7; O2SAT 95–97
[2017-04-24] MEDS: SODIUM CHLOR 0.9% 1000 ML INJ 1,000 ML IV SCH ×3 (01:30→20:50)
[2017-04-24] MEDS: PIPERACIL-TAZO 4.5 GM PREMIX 100 ML IV SCH ×4 (05:01→21:47)
[2017-04-24 05:21] LABS: MEAN CELL VOLUME 106.3 FL (80.0-100.0); MEAN CORPUSCULAR HGB CONC 34.8 % (32.0-36.0); PLATELET COUNT 58 TH/MM3 (150-450); RED BLOOD COUNT 3.29 MIL/MM3 (4.50-5.90); RED CELL DISTRIBUTION WIDTH 17.7 % (11.6-17.2)
[2017-04-24 05:37] LABS: CHLORIDE 93 MEQ/L (98-107); POTASSIUM 3.2 MEQ/L (3.5-5.1); SODIUM (NA) 129 MEQ/L (136-145)
[2017-04-24 05:41] LABS: ANION GAP 12 MEQ/L (5-15); BICARBONATE 23.6 MEQ/L (21.0-32.0)
[2017-04-24 05:42] LABS: BLOOD UREA NITROGEN 10 MG/DL (7-18)
[2017-04-24 05:44] LABS: ALT (GPT) 97 U/L (12-78)
[2017-04-24 05:45] LABS: AST (GOT) 292 U/L (15-37); GLOMERULAR FILTRATION RATE 143 ML/MIN (>89)
[2017-04-24 05:46] LABS: TOTAL BILIRUBIN ADULT 20.7 MG/DL (0.2-1.0)
[2017-04-24 05:47] LABS: ALKALINE PHOSPHATASE 129 U/L (45-117)
[2017-04-24 05:57] LABS: HEMO FLAGS AUTO DIFF
[2017-04-24 06:22] LABS: INTERNATIONAL NORMALIZED RATIO 3.1 RATIO; PROTHROMBIN TIME - PATIENT 35.6 SEC (9.8-11.6)
[2017-04-24 07:09] LABS: BANDS 3 % (0-6); BASOPHILS 1 % (0-2); EOSINOPHILS 2 % (0-4); NEUTROPHIL # MANUAL DIFF 5.3 TH/MM3 (1.8-7.7); PLATELET ESTIMATE SMEAR LOW (NORMAL); PLATELET MORPHOLOGY NORMAL (NORMAL); POLYS (SEG NEUTROPHILS) 73 % (16-70); ROULEAUX PRESENT (NORMAL); SCAN/DIFF FINAL DIFF MANUAL; TARGET CELLS 1+ (NORMAL); WBC DIFF SAMPLE 100
[2017-04-24] MEDS: DOCUSATE SODIUM 50 MG/SENNA 8.6 MG TAB PO SCH ×2 (09:00→20:50)
[2017-04-24] MEDS: MULTIVITAMINS/MINERALS THERAPEUTIC TAB PO SCH (09:17)
[2017-04-24] MEDS: FOLIC ACID 1 MG TAB PO SCH (09:17)
[2017-04-24] MEDS: NYSTATIN 100,000 UNIT/GM CREAM 15 GM TOPICAL SCH ×2 (09:17→20:49)
[2017-04-24] MEDS: PENTOXIFYLLINE 400 MG CONTROLLED RELEASE TAB PO SCH ×2 (09:17→20:49)
[2017-04-24] MEDS: THIAMINE HCL 100 MG TAB PO SCH (09:17)
[2017-04-24] MEDS: SODIUM CHLORIDE 0.9% FLUSH 10 ML FLUSH IV FLUSH SCH ×2 (09:18→20:51)
[2017-04-24] MEDS: POTASSIUM CHLORIDE 20 MEQ CONTROLLED RELEASE TAB PO SCH ×2 (10:14→20:50)
--- NOTE | 2017-04-24 13:30 | HHI.GIFU ---
GI Follow-up Note Consult Follow-up Subjective: Patient laying in bed comfortably, no new complaints except confusion. Objective: PHYSICAL EXAMINATION: Vitals signs stable No fever HEENT: Pupils round and reactive to light; normocephalic; atraumatic; no jaundice. Throat is clear. NECK: Neck is supple, no JVD, no lymphadenopathy. CHEST: Chest is clear to auscultation and percussion. CARDIAC: Regular rate and rhythm with no murmur gallop or rubs. ABDOMEN: Soft, nondistended, nontender; no hepatosplenomegaly; bowel sounds are present in all four quadrants. EXTREMITIES: No clubbing, cyanosis, or edema. SKIN: Normal; no rash; no jaundice. BASTING CLEANER: No focal deficits; alert and oriented times three. Available Data (labs, X- Rays, Procedues) : Last Impressions Chest X-Ray 04/21/171913 Signed Impressions: Service Date/Time: Friday, April 21, 2017 20:09 - CONCLUSION: No acute disease. Mich Dozier MD Abdomen/Pelvis CT 04/21/171913 Signed Impressions: Service Date/Time: Friday, April 21, 2017 21:33 - CONCLUSION: 1. Hepatomegaly with diffuse severe hypodensity characteristic of steatosis. 2. No evidence of biliary obstructive disease. 3. 10 mm left renal cyst. 4. Otherwise unremarkable exam. Mich Dozier MD Laboratory Tests Test 04/23/17 05:42 04/24/17 04:50 White Blood Count 6.1 TH/MM3 7.0 TH/MM3 Red Blood Count 3.32 MIL/MM3 3.29 MIL/MM3 Hemoglobin 12.0 GM/DL 12.2 GM/DL Hematocrit 34.9 % 35.0 % Mean Corpuscular Volume 105.2 FL 106.3 FL Mean Corpuscular Hemoglobin 36.3 PG 37.0 PG Mean Corpuscular Hemoglobin Concent 34.5 % 34.8 % Red Cell Distribution Width 17.4 % 17.7 % Platelet Count 55 TH/MM3 58 TH/MM3 Mean Platelet Volume 9.4 FL 9.4 FL CBC Comment AUTO DIFF AUTO DIFF Differential Total Cells Counted 100 100 Neutrophils % (Manual) 78 % 73 % Lymphocytes % 15 % 15 % Monocytes % 4 % 6 % Eosinophils % 3 % 2 % Neutrophils # (Manual) 4.8 TH/MM3 5.3 TH/MM3 Differential Comment FINAL DIFF MANUAL FINAL DIFF MANUAL Platelet Estimate LOW LOW Platelet Morphology Comment NORMAL NORMAL Target Cells 2+ 1+ Prothrombin Time 33.7 SEC 35.6 SEC Prothromb Time International Ratio 2.9 RATIO 3.1 RATIO Blood Urea Nitrogen 13 MG/DL 10 MG/DL Creatinine 0.71 MG/DL 0.59 MG/DL Random Glucose 98 MG/DL 93 MG/DL Total Protein 6.3 GM/DL 6.3 GM/DL Albumin 1.7 GM/DL 1.6 GM/DL Calcium Level 7.8 MG/DL 8.0 MG/DL Magnesium Level 2.3 MG/DL 2.2 MG/DL Alkaline Phosphatase 133 U/L 129 U/L Aspartate Amino Transf (AST/SGOT) 327 U/L 292 U/L Alanine Aminotransferase (ALT/SGPT) 102 U/L 97 U/L Total Bilirubin 19.4 MG/DL 20.7 MG/DL Sodium Level 125 MEQ/L 129 MEQ/L Potassium Level 3.3 MEQ/L 3.2 MEQ/L Chloride Level 92 MEQ/L 93 MEQ/L Carbon Dioxide Level 22.5 MEQ/L 23.6 MEQ/L Anion Gap 11 MEQ/L 12 MEQ/L Estimat Glomerular Filtration Rate 116 ML/MIN 143 ML/MIN Ammonia 33 MCMOL/L 12 MCMOL/L Band Neutrophils % 3 % Basophils % 1 % Rouleau PRESENT Allergies Coded Allergies Type Severity Reaction Last Updated Verified No Known Allergies 04/21/17 No Active Scripts Medications Dose Route/Sig Max Daily Dose Days Date Category No Active Prescriptions or Reported Medications Rx ASSESSMENT/PLAN: Seen and examined, very icteric but more awake today per nurse. Add solumederol 40mg ivpb q 8 hours. Monitor for D.Ts. Diet as tolerated. It was a pleasure seeing Artur Craft. Thank you for this consult. Entered by: Ryan Chawla MD Apr 24, 2017 13:29
[2017-04-24] MEDS: methylPREDNISolone SOD SUCC 40 MG/1 ML VIAL IV PUSH SCH ×2 (14:00→21:47)
--- NOTE | 2017-04-24 14:36 | HHI.PR ---
Subjective Remarks Patient pulled out his IV 4 times last night. Per his nurse when he is in the room he is alert oriented and cooperative but when he leaves the room the patient will get up and take off his gown and tried to leave. Objective Vitals Vital Signs Date Time Temp Pulse Resp B/P (MAP) Pulse Ox O2 Delivery O2 Flow Rate FiO2 04/24/17 12:00 98.3 104 25 04/24/17 12:00 102 04/24/17 11:01 114 27 127/78 (94) 04/24/17 11:00 114 31 04/24/17 10:00 116 30 04/24/17 09:07 112 36 118/69 (85) 04/24/17 09:01 106 25 04/24/17 09:00 108 26 04/24/17 08:00 98.2 108 26 04/24/17 08:00 104 04/24/17 07:00 100 16 127/80 (96) 04/24/17 05:00 100 26 131/76 (94) 04/24/17 04:00 96 04/24/17 03:00 96 04/24/17 03:00 97.2 96 27 116/71 (86) 04/24/17 01:00 94 27 115/71 (86) 96 04/24/17 00:00 98.7 98 116/81 (93) 97 04/24/17 00:00 98 04/23/17 22:31 95 21 04/23/17 21:00 94 20 121/76 (91) 94 04/23/17 20:10 100 04/23/17 20:10 98.1 100 23 118/69 (85) 94 04/23/17 19:30 95 21 04/23/17 18:19 124 23 137/81 (99) 98 04/23/17 18:00 97 04/23/17 16:15 108 20 123/72 (89) 95 04/23/17 16:00 102 19 95 I/O 04/23/17 04/23/17 04/23/17 04/24/17 04/24/17 04/24/17 07:00 15:00 23:00 07:00 15:00 23:00 Intake Total 1597 ml 1300 ml Output Total 800 ml 200 ml 1400 ml 200 ml Balance 797 ml 1100 ml -1400 ml -200 ml Intake Oral 600 ml IV Total 997 ml 1300 ml Output Urine Total 800 ml 200 ml 1400 ml 200 ml # Voids 2 3 # Bowel Movements 3 3 Result Diagram: 04/24/1744904/24/17449 Objective Remarks GENERAL: Well-nourished, well-developed patient. SKIN: Markedly jaundiced. Warm and dry. HEAD: Normocephalic. EYES: Positive scleral icterus. No injection or drainage. NECK: Supple, trachea midline. No JVD or lymphadenopathy. CARDIOVASCULAR: Regular rate and rhythm without murmurs, gallops, or rubs. RESPIRATORY: Breath sounds equal bilaterally. No accessory muscle use. GASTROINTESTINAL: Bowel sounds normoactive. No ascites. Abdomen soft, non- tender, nondistended. EXTREMITIES: 1+ pitting pedal edema bilaterally. NEUROLOGICAL: Somnolent, briefly becomes awake but then goes back to sleep. A/P Problem List: (1) Acute alcoholic hepatitis ICD Code: K70.10 - Alcoholic hepatitis without ascites (2) Fall ICD Code: W19.XXXA - Unspecified fall, initial encounter (3) Generalized weakness ICD Code: R53.1 - Weakness (4) Hyponatremia ICD Code: E87.1 - Hypo-osmolality and hyponatremia Status: Acute (5) Thrombocytopenia ICD Code: D69.6 - Thrombocytopenia, unspecified Status: Acute (6) Hyperammonemia ICD Code: E72.20 - Disorder of urea cycle metabolism, unspecified Status: Acute (7) Alcohol withdrawal ICD Code: F10.239 - Alcohol dependence with withdrawal, unspecified Status: Acute (8) Hyperbilirubinemia ICD Code: E80.6 - Other disorders of bilirubin metabolism Status: Acute (9) Coagulopathy ICD Code: D68.9 - Coagulation defect, unspecified Status: Acute Assessment and Plan -Generalized weakness status post fall at home. Likely deconditioning secondary to alcoholism. Consult physical therapy. -Alcoholic liver disease with acute alcoholic hepatitis and severe hyperbilirubinemia. Abdominal CT scan showed hepatomegaly with diffuse severe hypodensity characteristic of steatosis. Patient counseled on alcohol cessation and progressing to cirrhosis and its complications. Continue supportive care, follow CMP. Started on pentoxifylline per gastroenterology as well as Solu-Medrol. -Alcohol withdrawal syndrome with hallucinosis - high risk for progressing further to DVTs. Continue alcohol withdrawal pathway and rally pack. Soft restraints as he has pulled out his IV 4 times. -Severe hyponatremia, hypervolemic secondary to cirrhosis. Sodium slowly correcting. Continue IV fluids. -Hypokalemia. Magnesium level within normal limits. Replete potassium. -Thrombocytopenia. Secondary to liver disease. Monitor platelets. -Candidiasis and edema of scrotum. Continue nystatin cream and elevation. -DVT prophylaxis with SCDs. Problem Qualifiers (1) Alcohol withdrawal: Qualified Codes: F10.230 - Alcohol dependence with withdrawal, uncomplicated Liza Rojo MD Apr 24, 2017 14:36
[2017-04-25] VITALS (27 sets, daily range): BP systolic 103–154; BP diastolic 70–99; PULSE 88–109; RESP 16–31; TEMP 97.6–98.7; O2SAT 93–95
[2017-04-25] MEDS: PIPERACIL-TAZO 4.5 GM PREMIX 100 ML IV SCH ×2 (04:06→09:42)
[2017-04-25] MEDS: RESP: ALBUTEROL 2.5 MG/IPRATROPIUM 0.5 MG NEB (PRN) NEB ×2 (05:11→20:45)
[2017-04-25] MEDS: SODIUM CHLOR 0.9% 1000 ML INJ 1,000 ML IV SCH (05:18)
[2017-04-25] MEDS: methylPREDNISolone SOD SUCC 40 MG/1 ML VIAL IV PUSH SCH (05:18)
[2017-04-25 05:22] LABS: CHLORIDE 96 MEQ/L (98-107); POTASSIUM 3.6 MEQ/L (3.5-5.1); SODIUM (NA) 132 MEQ/L (136-145)
[2017-04-25 05:28] LABS: ANION GAP 11 MEQ/L (5-15); BLOOD UREA NITROGEN 9 MG/DL (7-18)
[2017-04-25 05:31] LABS: ALT (GPT) 101 U/L (12-78); AST (GOT) 282 U/L (15-37); GLOMERULAR FILTRATION RATE 152 ML/MIN (>89)
[2017-04-25 05:32] LABS: TOTAL BILIRUBIN ADULT 22.1 MG/DL (0.2-1.0)
[2017-04-25 05:34] LABS: ALKALINE PHOSPHATASE 134 U/L (45-117)
[2017-04-25] MEDS: DOCUSATE SODIUM 50 MG/SENNA 8.6 MG TAB PO SCH (09:00)
[2017-04-25] MEDS: THIAMINE HCL 100 MG TAB PO SCH (09:42)
[2017-04-25] MEDS: FOLIC ACID 1 MG TAB PO SCH (09:43)
[2017-04-25] MEDS: PENTOXIFYLLINE 400 MG CONTROLLED RELEASE TAB PO SCH ×2 (09:43→20:30)
[2017-04-25] MEDS: MULTIVITAMINS/MINERALS THERAPEUTIC TAB PO SCH (09:43)
[2017-04-25] MEDS: SODIUM CHLORIDE 0.9% FLUSH 10 ML FLUSH IV FLUSH SCH ×2 (09:43→20:30)
[2017-04-25] MEDS: POTASSIUM CHLORIDE 20 MEQ CONTROLLED RELEASE TAB PO SCH ×2 (09:43→20:30)
[2017-04-25] MEDS: NYSTATIN 100,000 UNIT/GM CREAM 15 GM TOPICAL SCH ×2 (09:44→20:30)
--- NOTE | 2017-04-25 13:05 | HHI.PR ---
Subjective Remarks Patient seen in room in follow-up for encephalopathy and liver failure Plan discussed with TOBACCO BLENDER. Patient pulling out IV and confused intermittently. He is calm. Quite jaundiced. Care plan also discussed with GI team. Patient tolerating diet Objective Vitals Vital Signs Date Time Temp Pulse Resp B/P (MAP) Pulse Ox O2 Delivery O2 Flow Rate FiO2 04/25/17 09:00 88 16 04/25/17 08:59 88 16 103/70 (81) 04/25/17 08:00 98.6 102 23 118/85 (96) 04/25/17 08:00 104 04/25/17 07:01 104 25 122/82 (95) 04/25/17 07:00 104 25 04/25/17 04:00 105 04/25/17 04:00 98.4 108 24 126/81 (96) 94 04/25/17 00:00 98.6 102 27 123/79 (94) 95 04/25/17 00:00 102 04/24/17 20:00 98.7 102 19 111/66 (81) 95 04/24/17 20:00 102 I/O 04/24/17 04/24/17 04/24/17 04/25/17 04/25/17 04/25/17 07:00 15:00 23:00 07:00 15:00 23:00 Intake Total 400 ml 30 ml 100 ml Output Total 1400 ml 200 ml Balance -1400 ml 200 ml 30 ml 100 ml Intake Oral 30 ml IV Total 400 ml 100 ml Output Urine Total 1400 ml 200 ml # Voids 6 # Bowel Movements 3 6 Result Diagram: 04/24/17 0450 04/25/17 0430 Imaging Last Impressions Chest X-Ray 04/21/171913 Signed Impressions: Service Date/Time: Friday, April 21, 2017 20:09 - CONCLUSION: No acute disease. Mich Dozier MD Abdomen/Pelvis CT 04/21/171913 Signed Impressions: Service Date/Time: Friday, April 21, 2017 21:33 - CONCLUSION: 1. Hepatomegaly with diffuse severe hypodensity characteristic of steatosis. 2. No evidence of biliary obstructive disease. 3. 10 mm left renal cyst. 4. Otherwise unremarkable exam. Mich Dozier MD Objective Remarks GENERAL: This is a well-nourished, confused, jaundiced CARDIOVASCULAR: Regular rate and rhythm without murmurs, gallops, or rubs. RESPIRATORY: Clear to auscultation. Breath sounds equal bilaterally. No wheezes , rales, or rhonchi. GASTROINTESTINAL: Abdomen soft, non-tender, nondistended. Normal active bowel sounds MUSCULOSKELETAL: Extremities without clubbing, cyanosis, or edema. NEURO: Alert & Oriented to person, moves all 4 extremities A/P Problem List: (1) Acute alcoholic hepatitis ICD Code: K70.10 - Alcoholic hepatitis without ascites Plan: We'll continue with steroids, pentoxifylline add Aldactone (2) Fall ICD Code: W19.XXXA - Unspecified fall, initial encounter Plan: Fall at home continue rehabilitation efforts as tolerated (3) Generalized weakness ICD Code: R53.1 - Weakness Plan: b12 level pending (4) Hyponatremia ICD Code: E87.1 - Hypo-osmolality and hyponatremia Status: Acute Plan: Improved somewhat, continue surveillance Avoid volume overload DC IV fluids (5) Thrombocytopenia ICD Code: D69.6 - Thrombocytopenia, unspecified Status: Acute Plan: Secondary to chronic liver disease, no active bleeding at this time continue him on (6) Hyperammonemia ICD Code: E72.20 - Disorder of urea cycle metabolism, unspecified Status: Acute (7) Alcohol withdrawal ICD Code: F10.239 - Alcohol dependence with withdrawal, unspecified Status: Acute Plan: Patient counseled for alcohol dependence and complications including his current liver failure We'll add Librium and follow indices including ammonia level (8) Hyperbilirubinemia ICD Code: E80.6 - Other disorders of bilirubin metabolism Status: Acute Plan: Secondary to liver failure, continue to follow liver eval (9) Coagulopathy ICD Code: D68.9 - Coagulation defect, unspecified Status: Acute (10) Candidiasis of scrotum ICD Code: B37.49 - Other urogenital candidiasis Plan: Continue nystatin (11) Abnormal urinalysis ICD Code: R82.90 - Unspecified abnormal findings in urine Plan: DC Zosyn, urinalysis shows low colony forming units Problem Qualifiers (1) Alcohol withdrawal: Qualified Codes: F10.230 - Alcohol dependence with withdrawal, uncomplicated Rafia Craft MD Apr 25, 2017 13:05
[2017-04-25] MEDS: SPIRONOLACTONE 50 MG TAB PO SCH (14:39)
[2017-04-26] VITALS (16 sets, daily range): BP systolic 109–144; BP diastolic 66–89; PULSE 99–120; RESP 20–31; TEMP 97.6–98.7; O2SAT 95–98
[2017-04-26] MEDS ORDERED: DOCUSATE SODIUM 50 MG/SENNA 8.6 MG TAB PO PRN (09:00)
[2017-04-26] MEDS: THIAMINE HCL 100 MG TAB PO SCH (09:17)
[2017-04-26] MEDS: POTASSIUM CHLORIDE 20 MEQ CONTROLLED RELEASE TAB PO SCH ×2 (09:17→21:18)
[2017-04-26] MEDS: MULTIVITAMINS/MINERALS THERAPEUTIC TAB PO SCH (09:17)
[2017-04-26] MEDS: FOLIC ACID 1 MG TAB PO SCH (09:17)
[2017-04-26] MEDS: NYSTATIN 100,000 UNIT/GM CREAM 15 GM TOPICAL SCH ×2 (09:17→21:18)
[2017-04-26] MEDS: predniSONE 10 MG TAB PO SCH (09:17)
[2017-04-26] MEDS: PENTOXIFYLLINE 400 MG CONTROLLED RELEASE TAB PO SCH ×2 (09:17→21:18)
[2017-04-26] MEDS: SPIRONOLACTONE 50 MG TAB PO SCH (09:17)
[2017-04-26] MEDS: SODIUM CHLORIDE 0.9% FLUSH 10 ML FLUSH IV FLUSH SCH ×2 (09:18→21:18)
--- NOTE | 2017-04-26 12:53 | HHI.PR ---
Subjective Remarks Patient seen in follow-up for alcoholic related metabolic encephalopathy and cirrhosis. Doing better today although mentally still encephalopathic. Care plan discussed with PROJECT FINANCIAL ANALYST. Objective Vitals Vital Signs Date Time Temp Pulse Resp B/P (MAP) Pulse Ox O2 Delivery O2 Flow Rate FiO2 04/26/17 08:00 98.1 112 27 109/66 (80) 04/26/17 08:00 110 04/26/17 07:51 120 31 124/68 (86) 04/26/17 07:00 114 25 04/26/17 04:00 104 04/26/17 04:00 98.7 108 24 117/68 (84) 95 04/26/17 00:00 99 04/26/17 00:00 97.6 99 20 113/69 (84) 95 04/25/17 20:45 93 21 04/25/17 20:00 97.6 96 30 137/83 (101) 94 04/25/17 20:00 97 04/25/17 18:00 98 18 04/25/17 17:59 100 19 134/85 (101) 04/25/17 17:55 109 04/25/17 17:00 94 18 04/25/17 16:59 96 20 142/90 (107) 04/25/17 16:01 106 26 154/99 (117) 04/25/17 16:00 98.3 106 31 04/25/17 15:00 96 19 04/25/17 14:59 96 26 116/85 (95) 04/25/17 14:00 104 23 04/25/17 13:59 106 28 139/88 (105) 04/25/17 13:00 98 04/25/17 12:59 98 123/84 (97) I/O 04/25/17 04/25/17 04/25/17 04/26/17 04/26/17 04/26/17 07:00 15:00 23:00 07:00 15:00 23:00 Intake Total 30 ml 1000 ml 260 ml 360 ml Balance 30 ml 1000 ml 260 ml 360 ml Intake Oral 30 ml 260 ml 360 ml IV Total 1000 ml # Voids 6 6 8 # Bowel Movements 6 8 Result Diagram: 04/24/17 0450 04/25/17 0430 Objective Remarks GENERAL: This is a well-nourished, confused, jaundiced CARDIOVASCULAR: Regular rate and rhythm without murmurs, gallops, or rubs. RESPIRATORY: Clear to auscultation. Breath sounds equal bilaterally. No wheezes , rales, or rhonchi. GASTROINTESTINAL: Abdomen soft, non-tender, nondistended. Normal active bowel sounds MUSCULOSKELETAL: Extremities without clubbing, cyanosis, or edema. NEURO: Alert & Oriented to person and place, moves all 4 extremities A/P Problem List: (1) Acute alcoholic hepatitis ICD Code: K70.10 - Alcoholic hepatitis without ascites Plan: We'll continue with steroids, pentoxifylline, and Aldactone (2) Fall ICD Code: W19.XXXA - Unspecified fall, initial encounter Plan: Fall at home continue rehabilitation efforts as tolerated (3) Generalized weakness ICD Code: R53.1 - Weakness Plan: b12 level greater than 2000 continue rehabilitation efforts (4) Hyponatremia ICD Code: E87.1 - Hypo-osmolality and hyponatremia Status: Acute Plan: Improved somewhat, continue surveillance (5) Thrombocytopenia ICD Code: D69.6 - Thrombocytopenia, unspecified Status: Acute (6) Alcohol withdrawal ICD Code: F10.239 - Alcohol dependence with withdrawal, unspecified Status: Acute Plan: Patient counseled for alcohol dependence and complications including his current liver failure Doing well with Librium, follow indices (7) Hyperbilirubinemia ICD Code: E80.6 - Other disorders of bilirubin metabolism Status: Acute (8) Candidiasis of scrotum ICD Code: B37.49 - Other urogenital candidiasis Plan: Continue nystatin Discharge Planning home when stable Problem Qualifiers (1) Alcohol withdrawal: Qualified Codes: F10.230 - Alcohol dependence with withdrawal, uncomplicated Rafia Craft MD Apr 26, 2017 12:53
[2017-04-26] MEDS ORDERED: SODIUM PHOSPHATE INJ 30 MMOL in SODIUM CHLOR 0.9% 250 ML INJ 250 ML IV ONE (14:00)
--- NOTE | 2017-04-26 14:44 | HHI.GIFU ---
Subjective Remarks Patient was seen and examined, laying in bed, still sleepy, very jaundiced, no new complaints Objective Vitals I&O Vital Signs Date Time Temp Pulse Resp B/P (MAP) Pulse Ox O2 Delivery O2 Flow Rate FiO2 04/26/17 08:00 98.1 112 27 109/66 (80) 04/26/17 08:00 110 04/26/17 07:51 120 31 124/68 (86) 04/26/17 07:00 114 25 04/26/17 04:00 104 04/26/17 04:00 98.7 108 24 117/68 (84) 95 04/26/17 00:00 99 04/26/17 00:00 97.6 99 20 113/69 (84) 95 04/25/17 20:45 93 21 04/25/17 20:00 97.6 96 30 137/83 (101) 94 04/25/17 20:00 97 04/25/17 18:00 98 18 04/25/17 17:59 100 19 134/85 (101) 04/25/17 17:55 109 04/25/17 17:00 94 18 04/25/17 16:59 96 20 142/90 (107) 04/25/17 16:01 106 26 154/99 (117) 04/25/17 16:00 98.3 106 31 04/25/17 15:00 96 19 04/25/17 14:59 96 26 116/85 (95) I/O 04/25/17 04/25/17 04/25/17 04/26/17 04/26/17 04/26/17 07:00 15:00 23:00 07:00 15:00 23:00 Intake Total 30 ml 1000 ml 260 ml 360 ml Balance 30 ml 1000 ml 260 ml 360 ml Intake Oral 30 ml 260 ml 360 ml IV Total 1000 ml # Voids 6 6 8 # Bowel Movements 6 8 Laboratory Laboratory Tests Test 04/26/17 04:30 Ammonia 24 Date/Time Source Procedure Growth Status 04/21/17 19:35 Blood Peripheral Aerobic Blood Culture - Final NO GROWTH IN 5 DAYS Complete 04/21/17 19:35 Blood Peripheral Anaerobic Blood Culture - Final NO GROWTH IN 5 DAYS Complete 04/21/17 21:55 Urine Catheterized Urine Urine Culture - Final 50-100,000 CFU/ML MIXED ROZ... Complete Physical Exam HEENT: Pupils round and reactive to light; normocephalic; atraumatic; severe jaundice. Throat is clear. NECK: Neck is supple, no JVD, no lymphadenopathy. CHEST: Chest is clear to auscultation and percussion. CARDIAC: Regular rate and rhythm with no murmur gallop or rubs. ABDOMEN: Soft, nondistended, nontender; no hepatosplenomegaly; bowel sounds are present in all four quadrants. EXTREMITIES: No clubbing, cyanosis, or edema. SKIN: Normal; no rash; jaundice. FORMING PROCESS WORKER: No focal deficits; very sleepy today most likely secondary to alcohol withdrawal and sedation and possible encephalopathy. Assessment and Plan Plan Severe alcohol liver disease with possible alcoholic hepatitis and alcohol withdrawal syndrome. Patient seems to be better, not hallucinating anymore. Severe elevation of his liver function tests Recommendation Clear liquid advancing as tolerated Ammonia is normal Continue pentoxifylline Overall guarded prognosis Nadine Lucas MD Apr 26, 2017 14:44
[2017-04-27] VITALS (12 sets, daily range): BP systolic 105–134; BP diastolic 74–86; PULSE 83–112; RESP 17–30; TEMP 96.2–98.2; O2SAT 94–98
[2017-04-27 06:15] LABS: CHLORIDE 103 MEQ/L (98-107); SODIUM (NA) 138 MEQ/L (136-145)
[2017-04-27 06:20] LABS: ANION GAP 11 MEQ/L (5-15); BICARBONATE 24.3 MEQ/L (21.0-32.0)
[2017-04-27 06:21] LABS: BLOOD UREA NITROGEN 14 MG/DL (7-18)
[2017-04-27 06:24] LABS: ALT (GPT) 105 U/L (12-78); AST (GOT) 255 U/L (15-37); GLOMERULAR FILTRATION RATE 182 ML/MIN (>89)
[2017-04-27 06:25] LABS: TOTAL BILIRUBIN ADULT 22.7 MG/DL (0.2-1.0)
[2017-04-27 06:26] LABS: ALKALINE PHOSPHATASE 139 U/L (45-117)
[2017-04-27] MEDS: POTASSIUM CHLORIDE 20 MEQ CONTROLLED RELEASE TAB PO SCH (10:00)
[2017-04-27] MEDS: THIAMINE HCL 100 MG TAB PO SCH (10:00)
[2017-04-27] MEDS: SPIRONOLACTONE 50 MG TAB PO SCH (10:00)
[2017-04-27] MEDS: PENTOXIFYLLINE 400 MG CONTROLLED RELEASE TAB PO SCH ×2 (10:00→20:49)
[2017-04-27] MEDS: predniSONE 10 MG TAB PO SCH (10:00)
[2017-04-27] MEDS: SODIUM CHLORIDE 0.9% FLUSH 10 ML FLUSH IV FLUSH SCH ×2 (10:01→20:49)
[2017-04-27] MEDS: NYSTATIN 100,000 UNIT/GM CREAM 15 GM TOPICAL SCH ×2 (10:01→23:54)
[2017-04-27] MEDS: NADOLOL 20 MG TAB PO SCH (11:00)
--- NOTE | 2017-04-27 11:01 | HHI.PR ---
Subjective Remarks Patient seen and evaluated today in follow-up for encephalopathy secondary to alcoholic liver disease and cirrhosis. Still eating poorly. Less confused however. Care plan discussed with ORDER DISPATCHER CHIEF Objective Vitals Vital Signs Date Time Temp Pulse Resp B/P (MAP) Pulse Ox O2 Delivery O2 Flow Rate FiO2 04/27/17 09:00 106 17 127/76 (93) 04/27/17 08:00 98.0 102 22 126/79 (95) 04/27/17 08:00 103 04/27/17 07:35 102 20 110/74 (86) 04/27/17 07:00 104 22 04/27/17 04:00 104 04/27/17 04:00 97.6 104 19 122/79 (93) 04/27/17 00:00 100 04/27/17 00:00 98.2 100 20 04/26/17 20:00 105 04/26/17 20:00 98.1 105 29 144/89 (107) 98 04/26/17 17:00 110 20 04/26/17 16:00 115 04/26/17 16:00 108 22 04/26/17 15:00 106 26 04/26/17 14:00 116 27 04/26/17 13:00 120 28 04/26/17 12:01 98.4 116 27 119/76 (90) 04/26/17 12:00 114 25 04/26/17 12:00 119 04/26/17 11:00 118 29 138/83 (101) I/O 04/26/17 04/26/17 04/26/17 04/27/17 04/27/17 04/27/17 07:00 15:00 23:00 07:00 15:00 23:00 Intake Total 360 ml 520 ml Output Total 33 ml Balance 360 ml 520 ml -33 ml Intake Oral 360 ml 520 ml Stool Total 33 ml # Voids 8 5 7 # Bowel Movements 8 Result Diagram: 04/24/17 0450 04/27/17439 Objective Remarks GENERAL: This is a well-nourished, calm, jaundiced CARDIOVASCULAR: Regular rate and rhythm without murmurs, gallops, or rubs. RESPIRATORY: Clear to auscultation. Breath sounds equal bilaterally. No wheezes , rales, or rhonchi. GASTROINTESTINAL: Abdomen soft, non-tender, nondistended. Normal active bowel sounds MUSCULOSKELETAL: Extremities without clubbing, cyanosis, or edema. NEURO: Alert & Oriented to person and place, moves all 4 extremities A/P Problem List: (1) Acute alcoholic hepatitis ICD Code: K70.10 - Alcoholic hepatitis without ascites Plan: We'll continue with steroids, pentoxifylline, nadolol and Aldactone (2) Fall ICD Code: W19.XXXA - Unspecified fall, initial encounter Plan: Patient of ours max assist. Care plan discussed with PT today. Recommending rehabilitation (3) Hyperbilirubinemia ICD Code: E80.6 - Other disorders of bilirubin metabolism Status: Acute Plan: Patient has poor liver function due to alcohol Continue surveillance (4) Candidiasis of scrotum ICD Code: B37.49 - Other urogenital candidiasis Plan: Continue nystatin (5) Electrolyte disturbance ICD Code: E87.8 - Other disorders of electrolyte and fluid balance, not elsewhere classified Plan: Hypokalemia and hypophosphatemia replaced, continue with surveillance Decreased potassium to once daily while on Aldactone and follow Discharge Planning Will need rehabilitation at discharge Rafia Craft MD Apr 27, 2017 11:01
[2017-04-27] MEDS: LORazepam 2 MG/ML VIAL IV PUSH PRN (23:53)
[2017-04-28] VITALS: BP 127/81; PULSE 100; RESP 20; TEMP 97.3; O2SAT 100
[2017-04-28 08:00] VITALS: BP 109/78; PULSE 104; RESP 16; TEMP 97.4; O2SAT 96
[2017-04-28 08:01] LABS: CHLORIDE 107 MEQ/L (98-107); POTASSIUM 3.7 MEQ/L (3.5-5.1); SODIUM (NA) 141 MEQ/L (136-145)
[2017-04-28 08:07] LABS: ANION GAP 9 MEQ/L (5-15); BICARBONATE 25.5 MEQ/L (21.0-32.0)
[2017-04-28 08:08] LABS: BLOOD UREA NITROGEN 17 MG/DL (7-18)
[2017-04-28 08:10] LABS: ALT (GPT) 119 U/L (12-78); AST (GOT) 274 U/L (15-37); GLOMERULAR FILTRATION RATE 133 ML/MIN (>89)
[2017-04-28 08:12] LABS: TOTAL BILIRUBIN ADULT 24.1 MG/DL (0.2-1.0)
[2017-04-28 08:13] LABS: ALKALINE PHOSPHATASE 130 U/L (45-117)
[2017-04-28] MEDS: predniSONE 10 MG TAB PO SCH (09:13)
[2017-04-28] MEDS: PENTOXIFYLLINE 400 MG CONTROLLED RELEASE TAB PO SCH ×2 (09:14→20:44)
[2017-04-28] MEDS: POTASSIUM CHLORIDE 20 MEQ CONTROLLED RELEASE TAB PO SCH (09:14)
[2017-04-28] MEDS: NADOLOL 20 MG TAB PO SCH (09:14)
[2017-04-28] MEDS: SODIUM CHLORIDE 0.9% FLUSH 10 ML FLUSH IV FLUSH SCH ×2 (09:14→20:44)
[2017-04-28] MEDS: NYSTATIN 100,000 UNIT/GM CREAM 15 GM TOPICAL SCH ×2 (09:15→20:44)
[2017-04-28] MEDS: THIAMINE HCL 100 MG TAB PO SCH (09:18)
[2017-04-28] MEDS: SPIRONOLACTONE 50 MG TAB PO SCH (09:18)
[2017-04-28] MEDS: LORazepam 2 MG/ML VIAL IV PUSH PRN (09:33)
[2017-04-28] MEDS ORDERED: LORazepam 2 MG/ML VIAL IV PUSH PRN (11:00)
[2017-04-28 12:00] VITALS: BP 118/83; PULSE 91; RESP 18; TEMP 97.1; O2SAT 94
--- NOTE | 2017-04-28 13:02 | HHI.PR ---
Subjective Remarks Patient somnolent and confused. Objective Vitals Vital Signs Date Time Temp Pulse Resp B/P (MAP) Pulse Ox O2 Delivery O2 Flow Rate FiO2 04/28/17 12:00 97.1 91 18 118/83 (95) 94 04/28/17 08:00 97.4 104 16 109/78 (88) 96 04/28/17 00:00 97.3 100 20 127/81 (96) 100 04/27/17 20:00 96.5 83 24 116/80 (92) 95 04/27/17 16:00 96.2 107 20 132/86 (101) 94 04/27/17 13:28 96.2 106 20 128/85 (99) 98 I/O 04/27/17 04/27/17 04/27/17 04/28/17 04/28/17 04/28/17 07:00 15:00 23:00 07:00 15:00 23:00 Intake Total 1290 ml 220 ml Output Total 33 ml 303 ml Balance -33 ml 987 ml 220 ml Intake Oral 1290 ml 220 ml Output Urine Total 303 ml Stool Total 33 ml # Voids 7 2 2 # Bowel Movements 2 0 Result Diagram: 04/24/17 0450 04/28/17 0726 Objective Remarks GENERAL: Well-nourished, well-developed patient. SKIN: Markedly jaundiced. Warm and dry. HEAD: Normocephalic. EYES: Positive scleral icterus. No injection or drainage. NECK: Supple, trachea midline. No JVD or lymphadenopathy. CARDIOVASCULAR: Regular rate and rhythm without murmurs, gallops, or rubs. RESPIRATORY: Breath sounds equal bilaterally. No accessory muscle use. GASTROINTESTINAL: Bowel sounds normoactive. No ascites. Abdomen soft, non- tender, nondistended. EXTREMITIES: 1+ pitting pedal edema bilaterally. NEUROLOGICAL: Somnolent, briefly becomes awake but then goes back to sleep. Oriented to place. A/P Problem List: (1) Acute alcoholic hepatitis ICD Code: K70.10 - Alcoholic hepatitis without ascites (2) Fall ICD Code: W19.XXXA - Unspecified fall, initial encounter (3) Hyperbilirubinemia ICD Code: E80.6 - Other disorders of bilirubin metabolism Status: Acute (4) Candidiasis of scrotum ICD Code: B37.49 - Other urogenital candidiasis (5) Electrolyte disturbance ICD Code: E87.8 - Other disorders of electrolyte and fluid balance, not elsewhere classified Assessment and Plan -Generalized weakness status post fall at home. Likely deconditioning secondary to alcoholism. Continue physical therapy. -Alcoholic liver disease with acute alcoholic hepatitis and severe hyperbilirubinemia. Abdominal CT scan showed hepatomegaly with diffuse severe hypodensity characteristic of steatosis. Patient counseled on alcohol cessation and progressing to cirrhosis and its complications. Continue supportive care, follow CMP. Started on pentoxifylline per gastroenterology as well as steroids. -Alcohol withdrawal syndrome with hallucinosis - high risk for progressing further to DVTs. Continue alcohol withdrawal pathway and rally pack. Soft restraints as needed to prevent interruption of care (he is pulled out multiple IVs). -Severe hyponatremia, hypervolemic secondary to cirrhosis. Sodium corrected. Hep-Lock IV. -Hypokalemia. Magnesium level within normal limits. Repleted potassium. -Thrombocytopenia. Secondary to liver disease. Monitor platelets. -Candidiasis and edema of scrotum. Continue nystatin cream and elevation. -DVT prophylaxis with SCDs. Liza Rojo MD Apr 28, 2017 13:02
[2017-04-28 16:00] VITALS: BP 111/77; PULSE 69; RESP 16; TEMP 97.8; O2SAT 96
[2017-04-28 18:18] VITALS: BP 100/53; PULSE 109; RESP 22; TEMP 98.3; O2SAT 93
[2017-04-28 20:00] VITALS: BP 136/86; PULSE 78; RESP 16; TEMP 98.6; O2SAT 92
[2017-04-29] VITALS: BP 152/98; PULSE 76; RESP 16; TEMP 98.6; O2SAT 95
[2017-04-29 08:00] VITALS: BP 113/89; PULSE 81; RESP 20; TEMP 96.1; O2SAT 94
[2017-04-29] MEDS: SODIUM CHLORIDE 0.9% FLUSH 10 ML FLUSH IV FLUSH SCH ×2 (09:09→21:54)
[2017-04-29] MEDS: predniSONE 10 MG TAB PO SCH (09:10)
[2017-04-29] MEDS: PENTOXIFYLLINE 400 MG CONTROLLED RELEASE TAB PO SCH ×2 (09:10→21:54)
[2017-04-29] MEDS: NADOLOL 20 MG TAB PO SCH (09:10)
[2017-04-29] MEDS: SPIRONOLACTONE 50 MG TAB PO SCH (09:10)
[2017-04-29] MEDS: THIAMINE HCL 100 MG TAB PO SCH (09:10)
[2017-04-29] MEDS: POTASSIUM CHLORIDE 20 MEQ CONTROLLED RELEASE TAB PO SCH (09:10)
[2017-04-29] MEDS: NYSTATIN 100,000 UNIT/GM CREAM 15 GM TOPICAL SCH ×2 (09:24→21:00)
[2017-04-29 12:00] VITALS: BP 111/87; PULSE 80; RESP 20; TEMP 96.1; O2SAT 95
--- NOTE | 2017-04-29 12:05 | HHI.PR ---
Subjective Remarks Discussed with RN, patient's mental status improved today. He is requesting ice cream. Nurse Grover he's had some wheezing. Objective Vitals Vital Signs Date Time Temp Pulse Resp B/P (MAP) Pulse Ox O2 Delivery O2 Flow Rate FiO2 04/29/17 10:24 20 04/29/17 08:00 96.1 81 20 113/89 (97) 94 04/29/17 07:00 94 Room Air 04/29/17 04:00 Room Air 04/29/17 00:00 98.6 76 16 152/98 (116) 95 04/29/17 00:00 Room Air 04/28/17 20:00 98.6 78 16 136/86 (103) 92 04/28/17 20:00 Room Air 04/28/17 18:18 98.3 109 22 100/53 (69) 93 04/28/17 16:00 97.8 69 16 111/77 (88) 96 I/O 04/28/17 04/28/17 04/28/17 04/29/17 04/29/17 04/29/17 07:00 15:00 23:00 07:00 15:00 23:00 Intake Total 220 ml 360 ml 360 ml 480 ml Output Total 200 ml 900 ml Balance 220 ml 160 ml 360 ml -420 ml Intake Oral 220 ml 360 ml 360 ml 480 ml Output Urine Total 200 ml 900 ml # Voids 2 2 2 # Bowel Movements 0 1 5 Result Diagram: 04/28/17725 Objective Remarks GENERAL: Well-nourished, well-developed patient. SKIN: Markedly jaundiced. Warm and dry. HEAD: Normocephalic. EYES: Positive scleral icterus. No injection or drainage. NECK: Supple, trachea midline. No JVD or lymphadenopathy. CARDIOVASCULAR: Regular rate and rhythm without murmurs, gallops, or rubs. RESPIRATORY: Breath sounds equal bilaterally. Mild wheezing. No accessory muscle use. GASTROINTESTINAL: Bowel sounds normoactive. No ascites. Abdomen soft, non- tender, nondistended. EXTREMITIES: 1+ pitting pedal edema bilaterally. NEUROLOGICAL: Awake, alert and oriented to place only. A/P Problem List: (1) Acute alcoholic hepatitis ICD Code: K70.10 - Alcoholic hepatitis without ascites (2) Fall ICD Code: W19.XXXA - Unspecified fall, initial encounter (3) Hyperbilirubinemia ICD Code: E80.6 - Other disorders of bilirubin metabolism Status: Acute (4) Candidiasis of scrotum ICD Code: B37.49 - Other urogenital candidiasis (5) Electrolyte disturbance ICD Code: E87.8 - Other disorders of electrolyte and fluid balance, not elsewhere classified Assessment and Plan -Generalized weakness status post fall at home. Likely deconditioning secondary to alcoholism. Continue physical therapy. -Alcoholic liver disease with acute alcoholic hepatitis and severe hyperbilirubinemia. Abdominal CT scan showed hepatomegaly with diffuse severe hypodensity characteristic of steatosis. Patient counseled on alcohol cessation and progressing to cirrhosis and its complications. Continue supportive care, follow CMP. Started on pentoxifylline per gastroenterology as well as steroids. We'll repeat a CMP in the morning. -Alcohol withdrawal syndrome with hallucinosis -improving. Continue Librium as needed. -Severe hyponatremia, hypervolemic secondary to cirrhosis. Sodium corrected. -Wheezing. Start duo nebs, incentive spirometry. -Hypokalemia. Magnesium level within normal limits. Repleted potassium. -Thrombocytopenia. Secondary to liver disease. Monitor platelets. -Candidiasis and edema of scrotum. Continue nystatin cream and elevation. -DVT prophylaxis with SCDs. Liza Rojo MD Apr 29, 2017 12:04
[2017-04-29] MEDS ORDERED: RESP: ALBUTEROL 2.5 MG/IPRATROPIUM 0.5 MG NEB (PRN) NEB (12:15)
[2017-04-29] MEDS ORDERED: RESP: ALBUTEROL 2.5 MG/IPRATROPIUM 0.5 MG NEB (SCH) NEB ONE (12:15)
[2017-04-29] MEDS ORDERED: FUROSEMIDE 40 MG/4 ML VIAL IV PUSH ONE (15:00)
[2017-04-29] MEDS: RESP: ALBUTEROL 2.5 MG/IPRATROPIUM 0.5 MG NEB (SCH) NEB ×2 (15:16→22:10)
--- NOTE | 2017-04-29 16:49 | HHI.GIFU ---
Subjective Remarks Lying in bed in no apparent distress. Denies abdominal pain. No nausea or vomiting. Patient states he is tolerating diet. Objective Vitals I&O Vital Signs Date Time Temp Pulse Resp B/P (MAP) Pulse Ox O2 Delivery O2 Flow Rate FiO2 04/29/17 12:00 96.1 80 20 111/87 (95) 95 04/29/17 10:24 20 04/29/17 08:00 96.1 81 20 113/89 (97) 94 04/29/17 07:00 94 Room Air 04/29/17 04:00 Room Air 04/29/17 00:00 98.6 76 16 152/98 (116) 95 04/29/17 00:00 Room Air 04/28/17 20:00 98.6 78 16 136/86 (103) 92 04/28/17 20:00 Room Air 04/28/17 18:18 98.3 109 22 100/53 (69) 93 I/O 04/28/17 04/28/17 04/28/17 04/29/17 04/29/17 04/29/17 07:00 15:00 23:00 07:00 15:00 23:00 Intake Total 220 ml 360 ml 360 ml 480 ml Output Total 200 ml 900 ml Balance 220 ml 160 ml 360 ml -420 ml Intake Oral 220 ml 360 ml 360 ml 480 ml Output Urine Total 200 ml 900 ml # Voids 2 2 2 # Bowel Movements 0 1 5 Laboratory Date/Time Source Procedure Growth Status 04/21/17 19:35 Blood Peripheral Aerobic Blood Culture - Final NO GROWTH IN 5 DAYS Complete 04/21/17 19:35 Blood Peripheral Anaerobic Blood Culture - Final NO GROWTH IN 5 DAYS Complete 04/21/17 21:55 Urine Catheterized Urine Urine Culture - Final 50-100,000 CFU/ML MIXED ROZ... Complete Imaging Last Impressions Chest X-Ray 04/21/171913 Signed Impressions: Service Date/Time: Friday, April 21, 2017 20:09 - CONCLUSION: No acute disease. Mich Dozier MD Abdomen/Pelvis CT 04/21/171913 Signed Impressions: Service Date/Time: Friday, April 21, 2017 21:33 - CONCLUSION: 1. Hepatomegaly with diffuse severe hypodensity characteristic of steatosis. 2. No evidence of biliary obstructive disease. 3. 10 mm left renal cyst. 4. Otherwise unremarkable exam. Mich Dozier MD Physical Exam HEENT: Normocephalic; atraumatic; + scleral icterus NECK: Neck is supple. CHEST: Mild wheezing. CARDIAC: RRR with no murmur gallop or rubs. ABDOMEN: Soft, nondistended, nontender; bowel sounds hypoactive EXTREMITIES: 1+ pitting edema BLE SKIN: + jaundice [employer] MACHINE TENDER: Drowsy. Oriented to place only. Assessment and Plan Plan ASSESSMENT: Severe alcohol liver disease with possible alcoholic hepatitis and alcohol withdrawal syndrome. Patient seems to be better, not hallucinating anymore. Severe elevation of his liver function tests. 04/29/17-Patient is oriented to place only. Drowsy. Ammonia is normal. Liver function tests elevated. PLAN: - JULIA - Monitor labs - Continue Pentoxifylline - Supportive care Patient seen and examined by Dr. Mobley and myself and this note is written on his behalf. Nery Santos Apr 29, 2017 16:49
[2017-04-29 20:00] VITALS: BP 115/85; PULSE 72; RESP 16; TEMP 96.9; O2SAT 96
[2017-04-29 22:13] VITALS: O2SAT 94
[2017-04-29] MEDS: ACETAMINOPHEN/HYDROcodone 325 MG/10 MG TAB PO PRN (22:56)
[2017-04-30] VITALS (8 sets, daily range): BP systolic 83–118; BP diastolic 59–85; PULSE 71–82; RESP 16–22; TEMP 96–97.7; O2SAT 93–98
[2017-04-30] MEDS: RESP: ALBUTEROL 2.5 MG/IPRATROPIUM 0.5 MG NEB (SCH) NEB ×4 (07:14→20:14)
[2017-04-30 07:26] LABS: CHLORIDE 109 MEQ/L (98-107); POTASSIUM 3.6 MEQ/L (3.5-5.1); SODIUM (NA) 145 MEQ/L (136-145)
[2017-04-30 07:31] LABS: ANION GAP 8 MEQ/L (5-15); BICARBONATE 28.1 MEQ/L (21.0-32.0)
[2017-04-30 07:32] LABS: BLOOD UREA NITROGEN 21 MG/DL (7-18)
[2017-04-30 07:34] LABS: ALT (GPT) 128 U/L (12-78); AST (GOT) 258 U/L (15-37)
[2017-04-30 07:35] LABS: GLOMERULAR FILTRATION RATE 133 ML/MIN (>89)
[2017-04-30 07:36] LABS: TOTAL BILIRUBIN ADULT 22.5 MG/DL (0.2-1.0)
[2017-04-30 07:37] LABS: ALKALINE PHOSPHATASE 123 U/L (45-117)
[2017-04-30] MEDS: SPIRONOLACTONE 50 MG TAB PO SCH (09:00)
[2017-04-30] MEDS: NADOLOL 20 MG TAB PO SCH (09:00)
[2017-04-30] MEDS: POTASSIUM CHLORIDE 20 MEQ CONTROLLED RELEASE TAB PO SCH (10:14)
[2017-04-30] MEDS: PENTOXIFYLLINE 400 MG CONTROLLED RELEASE TAB PO SCH ×2 (10:15→21:14)
[2017-04-30] MEDS: predniSONE 10 MG TAB PO SCH (10:15)
[2017-04-30] MEDS: SODIUM CHLORIDE 0.9% FLUSH 10 ML FLUSH IV FLUSH SCH ×2 (10:15→21:14)
[2017-04-30] MEDS: THIAMINE HCL 100 MG TAB PO SCH (10:15)
[2017-04-30] MEDS: NYSTATIN 100,000 UNIT/GM CREAM 15 GM TOPICAL SCH ×2 (10:16→21:18)
--- NOTE | 2017-04-30 16:49 | HHI.PR ---
Subjective Remarks Nursing reports that the patient is actually eating a little today which is an improvement. Patient himself says he is eating a little bit, denies any pain. Is very receptive about improving his condition and his open to rehabilitation placement after discharge. Objective Vital Signs Date Time Temp Pulse Resp B/P (MAP) Pulse Ox O2 Delivery O2 Flow Rate FiO2 04/30/17 12:00 96.2 79 22 118/78 (91) 94 04/30/17 08:00 97.2 77 21 87/65 (72) 95 83/59 (67) 04/30/17 08:00 94 Room Air 04/30/17 07:14 93 Nasal Cannula 2.00 04/30/17 04:00 96.8 72 16 95/59 (71) 98 04/30/17 00:00 97.7 71 16 116/85 (95) 96 04/29/17 22:13 94 Nasal Cannula 2.00 04/29/17 20:00 96.9 72 16 115/85 (95) 96 04/29/17 19:00 93 Room Air I/O 04/29/17 04/29/17 04/29/17 04/30/17 04/30/17 04/30/17 07:00 15:00 23:00 07:00 15:00 23:00 Intake Total 480 ml 1220 ml 840 ml Output Total 900 ml 2850 ml 650 ml Balance -420 ml -1630 ml 190 ml Intake Oral 480 ml 980 ml 840 ml Oral Supplement 240 ml Output Urine Total 900 ml 2850 ml 650 ml # Voids 7 # Bowel Movements 5 7 3 Result Diagram: 04/30/17 0622 Objective Remarks No acute distress, lying in bed Sleeping, easily awoken Obviously jaundiced, mild to moderate ascites noted with a protuberant otherwise soft abdomen with positive bowel sounds Has a condom catheter in place A/P Assessment and Plan -Generalized weakness status post fall at home. Likely deconditioning secondary to alcoholism. Continue physical therapy. Will need rehabilitation placement -Alcoholic liver disease with acute alcoholic hepatitis and severe hyperbilirubinemia. pentoxifylline per gastroenterology -Alcohol withdrawal syndrome - resolved -Severe hyponatremia, hypervolemic secondary to cirrhosis. - resolved -hypokalemia 2/2 diuretic - continue daily replacement -Thrombocytopenia. Secondary to liver disease. Monitor platelets. - stable so far -Candidiasis and edema of scrotum. Continue nystatin cream and elevation. -Will start remeron for suspected depression causing decreased appetite. -DVT prophylaxis with SCDs, unable to do chemoprophylaxis due to low platelets Discharge Planning Rehab after discharge once tolerating better po intake. Burt Ye MD Apr 30, 2017 16:49
--- NOTE | 2017-04-30 18:49 | HHI.GIFU ---
Subjective Remarks Patient laying in bed, seems to be comfortable, no significant complaint except general fatigue and weakness, once to go home Objective Vitals I&O Vital Signs Date Time Temp Pulse Resp B/P (MAP) Pulse Ox O2 Delivery O2 Flow Rate FiO2 04/30/17 16:00 96.0 82 20 113/76 (88) 95 04/30/17 12:00 96.2 79 22 118/78 (91) 94 04/30/17 08:00 97.2 77 21 87/65 (72) 95 83/59 (67) 04/30/17 08:00 94 Room Air 04/30/17 07:14 93 Nasal Cannula 2.00 04/30/17 04:00 96.8 72 16 95/59 (71) 98 04/30/17 00:00 97.7 71 16 116/85 (95) 96 04/29/17 22:13 94 Nasal Cannula 2.00 04/29/17 20:00 96.9 72 16 115/85 (95) 96 04/29/17 19:00 93 Room Air I/O 04/29/17 04/29/17 04/29/17 04/30/17 04/30/17 04/30/17 07:00 15:00 23:00 07:00 15:00 23:00 Intake Total 480 ml 1220 ml 840 ml 480 ml Output Total 900 ml 2850 ml 650 ml 800 ml Balance -420 ml -1630 ml 190 ml -320 ml Intake Oral 480 ml 980 ml 840 ml 480 ml Oral Supplement 240 ml Output Urine Total 900 ml 2850 ml 650 ml 800 ml # Voids 7 # Bowel Movements 5 7 3 0 Laboratory Laboratory Tests Test 04/30/17 06:22 Blood Urea Nitrogen 21 Creatinine 0.63 Random Glucose 96 Total Protein 5.8 Albumin 1.4 Calcium Level 9.1 Alkaline Phosphatase 123 Aspartate Amino Transf (AST/SGOT) 258 Alanine Aminotransferase (ALT/SGPT) 128 Total Bilirubin 22.5 Sodium Level 145 Potassium Level 3.6 Chloride Level 109 Carbon Dioxide Level 28.1 Anion Gap 8 Estimat Glomerular Filtration Rate 133 Date/Time Source Procedure Growth Status 04/21/17 19:35 Blood Peripheral Aerobic Blood Culture - Final NO GROWTH IN 5 DAYS Complete 04/21/17 19:35 Blood Peripheral Anaerobic Blood Culture - Final NO GROWTH IN 5 DAYS Complete 04/21/17 21:55 Urine Catheterized Urine Urine Culture - Final 50-100,000 CFU/ML MIXED ROZ... Complete Physical Exam HEENT: Normocephalic; atraumatic; + scleral icterus NECK: Neck is supple. CHEST: Mild wheezing. CARDIAC: RRR with no murmur gallop or rubs. ABDOMEN: Soft, nondistended, nontender; bowel sounds hypoactive EXTREMITIES: 1+ pitting edema BLE SKIN: + jaundice FLUE LINING DIPPER: Drowsy. Oriented to place only. Assessment and Plan Plan ASSESSMENT: Severe alcohol liver disease with possible alcoholic hepatitis and alcohol withdrawal syndrome. Patient seems to be better, not hallucinating anymore. Severe elevation of his liver function tests. 04/29/17-Patient is oriented to place only. Drowsy. Ammonia is normal. Liver function tests elevated. 04/30/2017 alcohol liver disease with alcohol hepatitis patient is sleepy but alert and oriented, was to go home, very weak, no new issues PLAN: - JULIA - Monitor labs - Continue Pentoxifylline - Supportive care - There is not much from GI stand patient need to continue to be off alcohol and recommend rehabilitation we will follow up as needed I discussed the case with the hospitalist attending Nadine Lucas MD Apr 30, 2017 18:49
[2017-04-30] MEDS: MIRTAZAPINE 15 MG TAB PO SCH (21:14)
[2017-05-01] VITALS (7 sets, daily range): BP systolic 108–130; BP diastolic 71–89; PULSE 68–82; RESP 16–20; TEMP 96.5–98.1; O2SAT 93–97
[2017-05-01] MEDS: RESP: ALBUTEROL 2.5 MG/IPRATROPIUM 0.5 MG NEB (SCH) NEB ×4 (07:43→20:18)
[2017-05-01] MEDS: SODIUM CHLORIDE 0.9% FLUSH 10 ML FLUSH IV FLUSH SCH ×2 (10:12→20:33)
[2017-05-01] MEDS: PENTOXIFYLLINE 400 MG CONTROLLED RELEASE TAB PO SCH ×2 (10:13→20:33)
[2017-05-01] MEDS: THIAMINE HCL 100 MG TAB PO SCH (10:13)
[2017-05-01] MEDS: SPIRONOLACTONE 50 MG TAB PO SCH (10:13)
[2017-05-01] MEDS: POTASSIUM CHLORIDE 20 MEQ CONTROLLED RELEASE TAB PO SCH (10:13)
[2017-05-01] MEDS: predniSONE 10 MG TAB PO SCH (10:13)
[2017-05-01] MEDS: NADOLOL 20 MG TAB PO SCH (10:13)
[2017-05-01] MEDS: NYSTATIN 100,000 UNIT/GM CREAM 15 GM TOPICAL SCH ×2 (10:14→20:36)
--- NOTE | 2017-05-01 15:35 | HHI.PR ---
Subjective Remarks Nursing reports that the patient is largely unchanged since yesterday, having some intermittent confusion, otherwise no acute events overnight. Patient himself reports most definitely having an increased appetite since yesterday after the Remeron was started. Thinks he is doing better overall today compared to yesterday. Objective Vital Signs Date Time Temp Pulse Resp B/P (MAP) Pulse Ox O2 Delivery O2 Flow Rate FiO2 05/01/17 15:15 98.1 75 16 109/71 (84) 97 05/01/17 09:30 97.5 80 16 118/74 (89) 96 05/01/17 07:45 93 21 05/01/17 00:00 96.5 82 18 130/89 (103) 96 04/30/17 20:14 95 21 04/30/17 20:00 96.9 73 16 101/68 (79) 96 04/30/17 20:00 96 Room Air 04/30/17 16:00 96.0 82 20 113/76 (88) 95 I/O 04/30/17 04/30/17 04/30/17 05/01/17 05/01/17 05/01/17 07:00 15:00 23:00 07:00 15:00 23:00 Intake Total 840 ml 480 ml Output Total 650 ml 800 ml 700 ml Balance 190 ml -320 ml -700 ml Intake Oral 840 ml 480 ml Output Urine Total 650 ml 800 ml 700 ml # Voids 4 # Bowel Movements 3 0 Result Diagram: 04/30/17 0622 Objective Remarks No acute distress, lying in bed Sleeping, easily awoken Obviously jaundiced, mild to moderate ascites noted with a protuberant otherwise soft abdomen with positive bowel sounds No condom catheter today, no lesions noted on scrotum or penis A/P Assessment and Plan -Generalized weakness status post fall at home. Likely deconditioning secondary to alcoholism. Continue physical therapy. Will need rehabilitation placement -Alcoholic liver disease with acute alcoholic hepatitis and severe hyperbilirubinemia. pentoxifylline per gastroenterology -hypokalemia 2/2 diuretic - continue daily replacement -Thrombocytopenia. Secondary to liver disease. Monitor platelets. - stable so far -Candidiasis and edema of scrotum. - improved. Continue nystatin cream and elevation. -continue Remeron for suspected depression causing decreased appetite. -Alcohol withdrawal syndrome - resolved -Severe hyponatremia, hypervolemic secondary to cirrhosis. - resolved. On fluid restriction. -DVT prophylaxis with SCDs, unable to do chemoprophylaxis due to low platelets Anticipate rehab placement evaluation in AM if labs are stable. Discharge Planning Rehab after discharge once tolerating better po intake. Burt Ye MD May 01, 2017 15:35
[2017-05-01] MEDS: MIRTAZAPINE 15 MG TAB PO SCH (20:33)
[2017-05-01] MEDS: ACETAMINOPHEN/HYDROcodone 325 MG/10 MG TAB PO PRN (20:34)
[2017-05-02] VITALS (7 sets, daily range): BP systolic 95–121; BP diastolic 54–77; PULSE 72–76; RESP 16–20; TEMP 95.9–98; O2SAT 93–100
[2017-05-02] MEDS: RESP: ALBUTEROL 2.5 MG/IPRATROPIUM 0.5 MG NEB (SCH) NEB ×4 (07:10→19:14)
[2017-05-02] MEDS: SPIRONOLACTONE 50 MG TAB PO SCH (08:18)
[2017-05-02] MEDS: NADOLOL 20 MG TAB PO SCH (08:18)
[2017-05-02] MEDS: predniSONE 10 MG TAB PO SCH (08:18)
[2017-05-02] MEDS: PENTOXIFYLLINE 400 MG CONTROLLED RELEASE TAB PO SCH ×2 (08:18→21:04)
[2017-05-02] MEDS: THIAMINE HCL 100 MG TAB PO SCH (08:18)
[2017-05-02] MEDS: POTASSIUM CHLORIDE 20 MEQ CONTROLLED RELEASE TAB PO SCH (08:18)
[2017-05-02] MEDS: NYSTATIN 100,000 UNIT/GM CREAM 15 GM TOPICAL SCH ×2 (08:20→21:06)
[2017-05-02] MEDS: SODIUM CHLORIDE 0.9% FLUSH 10 ML FLUSH IV FLUSH SCH ×2 (08:20→21:00)
[2017-05-02 09:46] LABS: AUTOMATED NEUTROPHIL # 10.9 TH/MM3 (1.8-7.7); BASOPHIL # 0.2 TH/MM3 (0-0.2); BASOPHIL % 1.5 % (0.0-2.0); EOSINOPHIL # 0.1 TH/MM3 (0-0.4); EOSINOPHIL % 0.6 % (0.0-4.0); HEMATOCRIT 36.5 % (39.0-51.0); LYMPHOCYTE # 2.8 TH/MM3 (1.0-4.8); MEAN CELL VOLUME 109.3 FL (80.0-100.0); MEAN CORPUSCULAR HEMOGLOBIN 38.5 PG (27.0-34.0); MEAN CORPUSCULAR HGB CONC 35.2 % (32.0-36.0); MONO % 5.6 % (0.0-8.0); NEUT % 73.3 % (16.0-70.0); PLATELET COUNT 45 TH/MM3 (150-450); RED BLOOD COUNT 3.34 MIL/MM3 (4.50-5.90); RED CELL DISTRIBUTION WIDTH 19.7 % (11.6-17.2); WHITE BLOOD COUNT 14.8 TH/MM3 (4.0-11.0)
[2017-05-02 09:53] LABS: HEMO FLAGS AUTO DIFF
[2017-05-02 10:14] LABS: TARGET CELLS 1+ (NORMAL)
[2017-05-02 10:15] LABS: PLATELET ESTIMATE SMEAR LOW (NORMAL); PLATELET MORPHOLOGY NORMAL (NORMAL); SCAN/DIFF AUTO DIFF CONFIRMED
--- NOTE | 2017-05-02 15:56 | HHI.PR ---
Subjective Remarks Nursing reports that the patient is largely unchanged since yesterday, having some intermittent confusion, otherwise no acute events overnight. Patient did attempt to get out of his bed and almost fell over and doing so. He is tolerating by mouth. Discussed w/ rehabilitation facility sales representative uniforms who relayed to me that they did not feel it was safe for them to accept the patient in the mental status that he is in since their rooms are semi-private and are concerned about other and happening patients' safety. Objective Vital Signs Date Time Temp Pulse Resp B/P (MAP) Pulse Ox O2 Delivery O2 Flow Rate FiO2 05/02/17 13:44 98.0 76 16 95/57 (70) 100 05/02/17 08:52 97.2 75 16 121/54 (76) 98 05/02/17 07:10 93 21 05/02/17 00:00 96.1 72 20 115/76 (89) 95 05/01/17 20:18 94 21 05/01/17 20:00 97.4 68 20 108/84 (92) 96 05/01/17 20:00 94 Room Air 05/01/17 19:43 97.6 70 16 117/81 (93) 97 I/O 05/01/17 05/01/17 05/01/17 05/02/17 05/02/17 05/02/17 07:00 15:00 23:00 07:00 15:00 23:00 Intake Total 500 ml 240 ml Output Total 700 ml Balance -700 ml 500 ml 240 ml Intake Oral 500 ml 240 ml Output Urine Total 700 ml # Voids 4 4 2 # Bowel Movements 2 2 Result Diagram: 05/02/17 0936 04/30/17 0622 Objective Remarks No acute distress, lying in bed Obviously jaundiced, abd is soft, protuberant, BS+, NT A/P Assessment and Plan -Generalized weakness status post fall at home. Likely deconditioning secondary to alcoholism. Continue physical therapy. Pending rehab placement - preferably a place w/ private rooms. I related to the lead case manager that the patient is medically optimized (in peak condition as he has been during this stay) as his intermittent confusion is likely due to his hepatic failure and is likely having intermittent hospital-based delirium and that this should not be a reason to keep him inpatient. Ammonia is wnl. -Alcoholic liver disease with acute alcoholic hepatitis and severe hyperbilirubinemia. pentoxifylline per gastroenterology -hypokalemia 2/2 diuretic - continue daily replacement -Thrombocytopenia. Secondary to liver disease. stable. monitor intermittently. - Leukocytosis - likely an incidental finding, I suspect this is due to his hepatic failure and that this will fluctuate as he has no signs or symptoms of infection including no fever and negative blood cultures. -Candidiasis and edema of scrotum. - improved. Continue nystatin cream and elevation. -continue Remeron for suspected depression causing decreased appetite. -Alcohol withdrawal syndrome - resolved -Severe hyponatremia, hypervolemic secondary to cirrhosis. - resolved. On fluid restriction. -DVT prophylaxis with SCDs, unable to do chemoprophylaxis due to low platelets. Anticipate rehab placement evaluation in AM if labs are stable. Discharge Planning Rehab after discharge once tolerating better po intake. Burt Ye MD May 02, 2017 15:56
[2017-05-02] MEDS: MIRTAZAPINE 15 MG TAB PO SCH (21:04)
[2017-05-02] MEDS: ACETAMINOPHEN/HYDROcodone 325 MG/10 MG TAB PO PRN (22:11)
[2017-05-03] VITALS: BP 121/81; PULSE 69; RESP 20; TEMP 96.7; O2SAT 98
[2017-05-03] MEDS: RESP: ALBUTEROL 2.5 MG/IPRATROPIUM 0.5 MG NEB (SCH) NEB ×3 (07:59→15:14)
[2017-05-03 08:00] VITALS: BP 109/75; PULSE 75; RESP 16; TEMP 98.2; O2SAT 100
[2017-05-03 08:03] VITALS: O2SAT 94
[2017-05-03] MEDS: SODIUM CHLORIDE 0.9% FLUSH 10 ML FLUSH IV FLUSH SCH ×2 (09:00→21:00)
[2017-05-03] MEDS: PENTOXIFYLLINE 400 MG CONTROLLED RELEASE TAB PO SCH ×2 (09:02→21:22)
[2017-05-03] MEDS: THIAMINE HCL 100 MG TAB PO SCH (09:02)
[2017-05-03] MEDS: predniSONE 10 MG TAB PO SCH (09:02)
[2017-05-03] MEDS: NADOLOL 20 MG TAB PO SCH (09:02)
[2017-05-03] MEDS: SPIRONOLACTONE 50 MG TAB PO SCH (09:02)
[2017-05-03] MEDS: POTASSIUM CHLORIDE 20 MEQ CONTROLLED RELEASE TAB PO SCH (09:02)
[2017-05-03] MEDS: NYSTATIN 100,000 UNIT/GM CREAM 15 GM TOPICAL SCH ×2 (09:03→21:22)
--- NOTE | 2017-05-03 09:40 | HHI.FF ---
Face to Face Verification Diagnosis: (1) Alcohol withdrawal (2) Generalized weakness Physical Therapy Order: Evaluate and Treat Home Health Nursing Order: Medical education I have seen patient Artur Craft on 05/03/17. My clinical findings support the need for the requested home health care services because: Deconditioned w/ increased weakness Med compliance is questionable I certify that my clinical findings support that this patient is homebound because: Need for psychosocial assistance Liza Rojo MD May 03, 2017 09:40
--- NOTE | 2017-05-03 11:05 | HHI.PR ---
Subjective Remarks Patient is calm. He states he thinks he is doing better. Patient is slightly confused and thinks that his primary care physician is upstairs and will be coming to see him momentarily. The patient thinks he is in the hospital at [place]. The patient is oriented to month but gets the year wrong stating it is 1916. Patient complains of some mild back soreness. Objective Vitals Vital Signs Date Time Temp Pulse Resp B/P (MAP) Pulse Ox O2 Delivery O2 Flow Rate FiO2 05/03/17 08:03 94 21 05/03/17 08:00 98.2 75 16 109/75 (86) 100 05/03/17 07:00 94 Room Air 05/03/17 00:00 96.7 69 20 121/81 (94) 98 05/02/17 20:00 97 Room Air 05/02/17 20:00 95.9 73 20 109/77 (88) 97 05/02/17 19:15 93 21 05/02/17 16:59 97.7 74 16 95/60 (72) 97 05/02/17 13:44 98.0 76 16 95/57 (70) 100 I/O 05/02/17 05/02/17 05/02/17 05/03/17 05/03/17 05/03/17 07:00 15:00 23:00 07:00 15:00 23:00 Intake Total 240 ml 240 ml 480 ml Output Total 400 ml Balance 240 ml 240 ml 80 ml Intake Oral 240 ml 240 ml 480 ml Output Urine Total 400 ml # Voids 2 1 # Bowel Movements 2 Result Diagram: 05/02/17 0936 04/30/17 0622 Objective Remarks GENERAL: Well-nourished, well-developed patient. SKIN: Markedly jaundiced. Warm and dry. HEAD: Normocephalic. EYES: Positive scleral icterus. No injection or drainage. NECK: Supple, trachea midline. No JVD or lymphadenopathy. CARDIOVASCULAR: Regular rate and rhythm without murmurs, gallops, or rubs. RESPIRATORY: Breath sounds equal bilaterally. No accessory muscle use. GASTROINTESTINAL: Bowel sounds normoactive. No ascites. Abdomen soft, non- tender, nondistended. EXTREMITIES: 1+ pitting pedal edema bilaterally. NEUROLOGICAL: Awake, alert and oriented to place only. A/P Problem List: (1) Acute alcoholic hepatitis ICD Code: K70.10 - Alcoholic hepatitis without ascites (2) Fall ICD Code: W19.XXXA - Unspecified fall, initial encounter (3) Hyperbilirubinemia ICD Code: E80.6 - Other disorders of bilirubin metabolism Status: Acute (4) Candidiasis of scrotum ICD Code: B37.49 - Other urogenital candidiasis (5) Electrolyte disturbance ICD Code: E87.8 - Other disorders of electrolyte and fluid balance, not elsewhere classified (6) Liver function failure ICD Code: K72.90 - Hepatic failure, unspecified without coma (7) Hyperammonemia ICD Code: E72.20 - Disorder of urea cycle metabolism, unspecified Status: Acute (8) Alcohol withdrawal ICD Code: F10.239 - Alcohol dependence with withdrawal, unspecified Status: Acute (9) Generalized weakness ICD Code: R53.1 - Weakness (10) Thrombocytopenia ICD Code: D69.6 - Thrombocytopenia, unspecified Status: Acute (11) Hyponatremia ICD Code: E87.1 - Hypo-osmolality and hyponatremia Status: Acute (12) Coagulopathy ICD Code: D68.9 - Coagulation defect, unspecified Status: Acute (13) Transaminitis ICD Code: R74.0 - Nonspecific elevation of levels of transaminase and lactic acid dehydrogenase [LDH] Status: Acute Assessment and Plan -Generalized weakness status post fall at home. Likely deconditioning secondary to alcoholism. Continue physical therapy. Pending rehab placement. -Alcoholic liver disease/acute liver failure with acute alcoholic hepatitis and severe hyperbilirubinemia, coagulopathy. pentoxifylline and prednisone per gastroenterology continue lasix and spironolactone repeat a.m. labs -Thrombocytopenia. Secondary to liver disease. stable. monitor intermittently. - Leukocytosis - likely d/t steroids, no sx of infection. -Candidiasis and edema of scrotum. - resolved. Continue nystatin cream and elevation. -continue Remeron for suspected depression causing decreased appetite. -Alcohol withdrawal syndrome - resolved -Severe hyponatremia, hypervolemic secondary to cirrhosis. - resolved. -DVT prophylaxis with SCDs, unable to do chemoprophylaxis due to low platelets. Discharge Planning Needs rehab placement, CM assisting. Problem Qualifiers (1) Alcohol withdrawal: Qualified Codes: F10.230 - Alcohol dependence with withdrawal, uncomplicated Liza Rojo MD May 03, 2017 10:12
[2017-05-03 12:00] VITALS: BP 97/62; PULSE 68; RESP 16; TEMP 98; O2SAT 99
[2017-05-03 16:00] VITALS: BP 98/64; PULSE 66; RESP 20; TEMP 96.4; O2SAT 96
[2017-05-03 20:00] VITALS: BP 118/81; PULSE 71; RESP 20; TEMP 97.8; O2SAT 95
[2017-05-03] MEDS: MIRTAZAPINE 15 MG TAB PO SCH (21:22)
[2017-05-03] MEDS ORDERED: LORazepam 2 MG/ML VIAL IM ONE (23:00)
[2017-05-04] VITALS: BP 100/64; PULSE 61; RESP 20; TEMP 98; O2SAT 100
[2017-05-04 06:27] LABS: HEMATOCRIT 35.7 % (39.0-51.0); MEAN CELL VOLUME 109.8 FL (80.0-100.0); MEAN CORPUSCULAR HGB CONC 34.6 % (32.0-36.0); PLATELET COUNT 40 TH/MM3 (150-450); RED BLOOD COUNT 3.25 MIL/MM3 (4.50-5.90); RED CELL DISTRIBUTION WIDTH 19.7 % (11.6-17.2)
[2017-05-04 06:29] LABS: HEMO FLAGS AUTO DIFF
[2017-05-04 06:31] LABS: CHLORIDE 113 MEQ/L (98-107); POTASSIUM 3.4 MEQ/L (3.5-5.1); SODIUM (NA) 145 MEQ/L (136-145)
[2017-05-04 06:32] LABS: PROTHROMBIN TIME - PATIENT 22.6 SEC (9.8-11.6)
[2017-05-04 06:36] LABS: ANION GAP 8 MEQ/L (5-15); BICARBONATE 24.3 MEQ/L (21.0-32.0); BLOOD UREA NITROGEN 23 MG/DL (7-18)
[2017-05-04 06:39] LABS: ALT (GPT) 162 U/L (12-78); AST (GOT) 248 U/L (15-37); GLOMERULAR FILTRATION RATE 99 ML/MIN (>89)
[2017-05-04 06:41] LABS: TOTAL BILIRUBIN ADULT 23.9 MG/DL (0.2-1.0)
[2017-05-04 06:42] LABS: ALKALINE PHOSPHATASE 129 U/L (45-117)
[2017-05-04 07:13] LABS: BANDS 2 % (0-6); NEUTROPHIL # MANUAL DIFF 13.1 TH/MM3 (1.8-7.7); PLATELET ESTIMATE SMEAR LOW (NORMAL); PLATELET MORPHOLOGY NORMAL (NORMAL); POLYS (SEG NEUTROPHILS) 85 % (16-70); SCAN/DIFF FINAL DIFF MANUAL; TARGET CELLS 2+ (NORMAL); WBC DIFF SAMPLE 100
[2017-05-04 08:13] VITALS: BP 108/71; PULSE 63; RESP 20; TEMP 97.4; O2SAT 97
[2017-05-04] MEDS: predniSONE 10 MG TAB PO SCH (08:57)
[2017-05-04] MEDS: POTASSIUM CHLORIDE 20 MEQ CONTROLLED RELEASE TAB PO SCH (08:57)
[2017-05-04] MEDS: NADOLOL 20 MG TAB PO SCH (08:57)
[2017-05-04] MEDS: NYSTATIN 100,000 UNIT/GM CREAM 15 GM TOPICAL SCH ×2 (08:57→21:00)
[2017-05-04] MEDS: PENTOXIFYLLINE 400 MG CONTROLLED RELEASE TAB PO SCH ×2 (08:57→21:00)
[2017-05-04] MEDS: THIAMINE HCL 100 MG TAB PO SCH (08:57)
[2017-05-04] MEDS: SPIRONOLACTONE 50 MG TAB PO SCH (08:57)
[2017-05-04] MEDS: SODIUM CHLORIDE 0.9% FLUSH 10 ML FLUSH IV FLUSH SCH ×2 (08:58→21:00)
[2017-05-04] MEDS ORDERED: POTASSIUM CHLORIDE 10 MEQ CONTROLLED RELEASE TAB PO ONE (09:00)
--- NOTE | 2017-05-04 09:35 | HHI.PR ---
Subjective Remarks Patient had an episode of agitation where he was trying to get out of bed last night and received 1 mg of IM Ativan was placed in soft restraints. He has no recollection of that event. This morning he is calm, out of restraints. States he feels depressed. Objective Vitals Vital Signs Date Time Temp Pulse Resp B/P (MAP) Pulse Ox O2 Delivery O2 Flow Rate FiO2 05/04/17 08:13 97.4 63 20 108/71 (83) 97 05/04/17 00:00 98.0 61 20 100/64 (76) 100 05/03/17 20:00 97.8 71 20 118/81 (93) 95 05/03/17 19:00 95 Room Air 05/03/17 16:00 96.4 66 20 98/64 (75) 96 05/03/17 12:00 98.0 68 16 97/62 (74) 99 I/O 05/03/17 05/03/17 05/03/17 05/04/17 05/04/17 05/04/17 07:00 15:00 23:00 07:00 15:00 23:00 Intake Total 480 ml Output Total 400 ml 0 ml 400 ml Balance 80 ml 0 ml -400 ml Intake Oral 480 ml Output Urine Total 400 ml 0 ml 400 ml Stool Total 0 ml # Voids 1 # Bowel Movements 2 1 Result Diagram: 05/04/1760405/04/17604 Objective Remarks GENERAL: Well-nourished, well-developed patient. SKIN: Markedly jaundiced. Warm and dry. HEAD: Normocephalic. EYES: Positive scleral icterus. No injection or drainage. NECK: Supple, trachea midline. No JVD or lymphadenopathy. CARDIOVASCULAR: Regular rate and rhythm without murmurs, gallops, or rubs. RESPIRATORY: Breath sounds equal bilaterally. No accessory muscle use. GASTROINTESTINAL: Bowel sounds normoactive. No ascites. Abdomen soft, non- tender, nondistended. EXTREMITIES: 1+ pitting pedal edema bilaterally. NEUROLOGICAL: Awake, alert and oriented to place only. A/P Problem List: (1) Acute alcoholic hepatitis ICD Code: K70.10 - Alcoholic hepatitis without ascites (2) Fall ICD Code: W19.XXXA - Unspecified fall, initial encounter (3) Hyperbilirubinemia ICD Code: E80.6 - Other disorders of bilirubin metabolism Status: Acute (4) Candidiasis of scrotum ICD Code: B37.49 - Other urogenital candidiasis (5) Electrolyte disturbance ICD Code: E87.8 - Other disorders of electrolyte and fluid balance, not elsewhere classified (6) Liver function failure ICD Code: K72.90 - Hepatic failure, unspecified without coma (7) Hyperammonemia ICD Code: E72.20 - Disorder of urea cycle metabolism, unspecified Status: Acute (8) Alcohol withdrawal ICD Code: F10.239 - Alcohol dependence with withdrawal, unspecified Status: Acute (9) Generalized weakness ICD Code: R53.1 - Weakness (10) Thrombocytopenia ICD Code: D69.6 - Thrombocytopenia, unspecified Status: Acute (11) Hyponatremia ICD Code: E87.1 - Hypo-osmolality and hyponatremia Status: Acute (12) Coagulopathy ICD Code: D68.9 - Coagulation defect, unspecified Status: Acute (13) Transaminitis ICD Code: R74.0 - Nonspecific elevation of levels of transaminase and lactic acid dehydrogenase [LDH] Status: Acute Assessment and Plan -Generalized weakness status post fall at home. Likely deconditioning secondary to alcoholism. Continue physical therapy. Pending rehab placement. -Alcoholic liver disease/acute liver failure with acute alcoholic hepatitis and severe hyperbilirubinemia, coagulopathy. pentoxifylline and prednisone per gastroenterology continue lasix and spironolactone -Metabolic encephalopathy, improving. He also may have some component of alcohol-related cognitive impairment/dementia. Ammonia level not elevated. -Thrombocytopenia. Secondary to liver disease. stable. monitor intermittently. - Leukocytosis - likely d/t steroids, no sx of infection. -Candidiasis and edema of scrotum. - resolved. Continue nystatin cream and elevation. -continue Remeron for suspected depression causing decreased appetite. -Alcohol withdrawal syndrome - resolved -Severe hyponatremia, hypervolemic secondary to cirrhosis. - resolved. -DVT prophylaxis with SCDs, unable to do chemoprophylaxis due to low platelets. Discharge Planning Needs rehab placement, CM assisting. Problem Qualifiers (1) Alcohol withdrawal: Qualified Codes: F10.230 - Alcohol dependence with withdrawal, uncomplicated Liza Rojo MD May 04, 2017 09:35
[2017-05-04 13:18] VITALS: BP 110/68; PULSE 68; RESP 20; TEMP 98; O2SAT 100
[2017-05-04 16:00] VITALS: BP 110/72; PULSE 68; RESP 18; TEMP 97.2; O2SAT 100
[2017-05-04 20:00] VITALS: BP 103/64; PULSE 65; RESP 20; TEMP 98.2; O2SAT 98
[2017-05-04] MEDS: MIRTAZAPINE 15 MG TAB PO SCH (21:00)
[2017-05-05] VITALS: BP 106/72; PULSE 63; RESP 14; TEMP 97.8; O2SAT 98
[2017-05-05 08:00] VITALS: BP 110/71; PULSE 67; RESP 18; TEMP 97.5; O2SAT 97
[2017-05-05] MEDS: SODIUM CHLORIDE 0.9% FLUSH 10 ML FLUSH IV FLUSH SCH ×3 (09:00→19:40)
[2017-05-05] MEDS: PENTOXIFYLLINE 400 MG CONTROLLED RELEASE TAB PO SCH ×2 (09:05→20:33)
[2017-05-05] MEDS: POTASSIUM CHLORIDE 20 MEQ CONTROLLED RELEASE TAB PO SCH (09:05)
[2017-05-05] MEDS: predniSONE 10 MG TAB PO SCH (09:05)
[2017-05-05] MEDS: NADOLOL 20 MG TAB PO SCH (09:06)
[2017-05-05] MEDS: SPIRONOLACTONE 50 MG TAB PO SCH (09:06)
[2017-05-05] MEDS: NYSTATIN 100,000 UNIT/GM CREAM 15 GM TOPICAL SCH ×2 (09:06→20:33)
[2017-05-05] MEDS: THIAMINE HCL 100 MG TAB PO SCH (09:06)
[2017-05-05 09:57] LABS: POTASSIUM 3.7 MEQ/L (3.5-5.1)
[2017-05-05 10:00] LABS: BICARBONATE 26.2 MEQ/L (21.0-32.0); MAGNESIUM 2.7 MG/DL (1.5-2.5)
--- NOTE | 2017-05-05 11:11 | HHI.PR ---
Subjective Remarks Follow-up for alcoholic liver failure. Patient states he feels good. He does admit to some constipation stating he felt like he had to have a large bowel movement earlier but only had a small hard stool. The nurse tells me the stool was soft but it was a small amount. He denies any fevers or chills. Denies any shortness of breath, abdominal pain, nausea, or vomiting. Objective Vitals Vital Signs Date Time Temp Pulse Resp B/P (MAP) Pulse Ox O2 Delivery O2 Flow Rate FiO2 05/05/17 08:00 97.5 67 18 110/71 (84) 97 05/05/17 00:00 97.8 63 14 106/72 (83) 98 05/04/17 20:00 98.2 65 20 103/64 (77) 98 05/04/17 16:00 97.2 68 18 110/72 (85) 100 05/04/17 13:18 98.0 68 20 110/68 (82) 100 I/O 05/04/17 05/04/17 05/04/17 05/05/17 05/05/17 05/05/17 07:00 15:00 23:00 07:00 15:00 23:00 Intake Total 220 ml 480 ml Output Total 400 ml 350 ml 750 ml 1 ml Balance -400 ml -130 ml -270 ml -1 ml Intake Oral 220 ml 480 ml Output Urine Total 400 ml 350 ml 750 ml Stool Total 1 ml # Bowel Movements 1 0 1 Result Diagram: 05/04/17 0605 05/05/17 0917 Objective Remarks GENERAL: Pleasant well-developed patient in no apparent distress. SKIN: Significantly jaundiced. EYES: Scleral icterus. CARDIOVASCULAR: Regular rate and rhythm. RESPIRATORY: No accessory muscle use. Clear to auscultation. Breath sounds equal bilaterally. GASTROINTESTINAL: Abdomen soft, non-tender, nondistended. NEUROLOGICAL: Awake and alert. Normal speech. PSYCHIATRIC: Appropriate mood and affect. Urinary Catheter: No Vascular Central Line Catheter: No A/P Problem List: (1) Acute alcoholic hepatitis ICD Code: K70.10 - Alcoholic hepatitis without ascites (2) Fall ICD Code: W19.XXXA - Unspecified fall, initial encounter (3) Hyperbilirubinemia ICD Code: E80.6 - Other disorders of bilirubin metabolism Status: Acute (4) Candidiasis of scrotum ICD Code: B37.49 - Other urogenital candidiasis (5) Electrolyte disturbance ICD Code: E87.8 - Other disorders of electrolyte and fluid balance, not elsewhere classified (6) Liver function failure ICD Code: K72.90 - Hepatic failure, unspecified without coma (7) Hyperammonemia ICD Code: E72.20 - Disorder of urea cycle metabolism, unspecified Status: Acute (8) Alcohol withdrawal ICD Code: F10.239 - Alcohol dependence with withdrawal, unspecified Status: Acute (9) Generalized weakness ICD Code: R53.1 - Weakness (10) Thrombocytopenia ICD Code: D69.6 - Thrombocytopenia, unspecified Status: Acute (11) Hyponatremia ICD Code: E87.1 - Hypo-osmolality and hyponatremia Status: Acute (12) Coagulopathy ICD Code: D68.9 - Coagulation defect, unspecified Status: Acute (13) Transaminitis ICD Code: R74.0 - Nonspecific elevation of levels of transaminase and lactic acid dehydrogenase [LDH] Status: Acute Assessment and Plan Hypernatremia/hyperchloremia: Na 148 and Cl 115. Likely due to diuretic use; patient also on fluid restrictions. -Repeat am BMP. If worsens may need to decrease diuretic dose. Avoid IVF if possible. Pre-renal azotemia: BUN 23-->26. May be due to diuretic use. -Recheck BUN tomorrow Generalized weakness status post fall at home. Likely deconditioning secondary to alcoholism. -Continue physical therapy. Pending rehab placement. Alcoholic liver disease/acute liver failure with acute alcoholic hepatitis and severe hyperbilirubinemia, coagulopathy. -GI following -Continue Pentoxifylline. -Continue Prednisone x 4 weeks. Taper 1 week out. -Continue Spironolactone -Montor LFTs periodically. Metabolic encephalopathy: Improving. He also may have some component of alcohol -related cognitive impairment/dementia. Ammonia level not elevated. Thrombocytopenia: Secondary to liver disease. -05/05: Decreased to 40 yesterday. Will repeat am CBC. Leukocytosis: Likely due to steroids. No sign of infection. -Monitor CBC periodically. Candidiasis and edema of scrotum: Resolved. -Continue nystatin cream and elevation. Continue Remeron for suspected depression causing decreased appetite. Alcohol withdrawal syndrome: Resolved Severe hyponatremia: Resolved. Hypervolemic secondary to cirrhosis. DVT prophylaxis with SCDs; unable to do chemoprophylaxis due to low platelets. 05/05: Nurse later checked with patient and he no longer feels constipated. He's been having fairly regular BMs. Use bowel regimen as needed. 05/05: Dr. Rojo spoke today with patient's mother regarding his clinical condition and treatment. Problem Qualifiers (1) Alcohol withdrawal: Qualified Codes: F10.230 - Alcohol dependence with withdrawal, uncomplicated Marcela Mora May 05, 2017 11:11
[2017-05-05 12:00] VITALS: BP 117/65; PULSE 80; RESP 18; TEMP 97.8; O2SAT 97
[2017-05-05 16:00] VITALS: BP 134/67; PULSE 80; RESP 18; TEMP 97.8; O2SAT 96
[2017-05-05 20:00] VITALS: BP 120/78; PULSE 66; RESP 20; TEMP 97.1; O2SAT 97
[2017-05-05] MEDS: MIRTAZAPINE 15 MG TAB PO SCH (20:33)
[2017-05-06] VITALS: BP 107/70; PULSE 66; RESP 20; TEMP 96.1; O2SAT 99
[2017-05-06] MEDS: SODIUM CHLORIDE 0.9% FLUSH 10 ML FLUSH IV FLUSH SCH ×2 (08:24→20:51)
[2017-05-06 08:26] LABS: AUTOMATED NEUTROPHIL # 10.7 TH/MM3 (1.8-7.7); BASOPHIL % 0.3 % (0.0-2.0); EOSINOPHIL # 0.1 TH/MM3 (0-0.4); EOSINOPHIL % 0.7 % (0.0-4.0); HEMATOCRIT 33.4 % (39.0-51.0); LYMPH % 15.8 % (9.0-44.0); LYMPHOCYTE # 2.1 TH/MM3 (1.0-4.8); MEAN CELL VOLUME 109.1 FL (80.0-100.0); MEAN CORPUSCULAR HEMOGLOBIN 37.5 PG (27.0-34.0); MEAN CORPUSCULAR HGB CONC 34.4 % (32.0-36.0); MONO % 4.5 % (0.0-8.0); NEUT % 78.7 % (16.0-70.0); PLATELET COUNT 42 TH/MM3 (150-450); RED BLOOD COUNT 3.06 MIL/MM3 (4.50-5.90); RED CELL DISTRIBUTION WIDTH 19.2 % (11.6-17.2); WHITE BLOOD COUNT 13.5 TH/MM3 (4.0-11.0)
[2017-05-06 08:27] LABS: HEMO FLAGS AUTO DIFF; POTASSIUM 3.3 MEQ/L (3.5-5.1)
[2017-05-06] MEDS: THIAMINE HCL 100 MG TAB PO SCH (08:30)
[2017-05-06] MEDS: POTASSIUM CHLORIDE 20 MEQ CONTROLLED RELEASE TAB PO SCH (08:31)
[2017-05-06] MEDS: PENTOXIFYLLINE 400 MG CONTROLLED RELEASE TAB PO SCH ×2 (08:31→20:51)
[2017-05-06] MEDS: NADOLOL 20 MG TAB PO SCH (08:31)
[2017-05-06 08:32] LABS: BICARBONATE 23.3 MEQ/L (21.0-32.0)
[2017-05-06] MEDS: predniSONE 10 MG TAB PO SCH (08:32)
[2017-05-06] MEDS: SPIRONOLACTONE 50 MG TAB PO SCH (08:33)
[2017-05-06 08:49] LABS: BANDS 3 % (0-6); EOSINOPHILS 1 % (0-4); NEUTROPHIL # MANUAL DIFF 10.9 TH/MM3 (1.8-7.7); PLATELET ESTIMATE SMEAR LOW (NORMAL); PLATELET MORPHOLOGY NORMAL (NORMAL); POLYS (SEG NEUTROPHILS) 78 % (16-70); ROULEAUX PRESENT (NORMAL); SCAN/DIFF FINAL DIFF MANUAL; TARGET CELLS 1+ (NORMAL); WBC DIFF SAMPLE 100
[2017-05-06] MEDS ORDERED: POTASSIUM CHLORIDE 20 MEQ CONTROLLED RELEASE TAB PO ONE (09:00)
--- NOTE | 2017-05-06 09:11 | HHI.PR ---
Subjective Remarks Follow up for alcoholic liver disease. Nurse informs me the patient had a fall last night. Apparently the fall took place at 0530 this morning. Although it's documented by night nurse that the patient somehow turned off his bed alarm and slid to the floor onto his buttocks, the nurse today tells me that it was an unwitnessed fall and she as well as the charge nurse do not believe the patient could've disengaged his bed alarm. Nurse tells me patient is confused. Patient states there is something wrong regarding his dad. Denies any lightheadedness/dizziness, BRANCH, visual changes, neck pain, chest pain, SOB, abdominal pain, vomiting, or diarrhea. During exam he tells me "I just want to eat my breakfast". Objective Vitals Vital Signs Date Time Temp Pulse Resp B/P (MAP) Pulse Ox O2 Delivery O2 Flow Rate FiO2 05/06/17 00:00 96.1 66 20 107/70 (82) 99 05/05/17 20:00 97.1 66 20 120/78 (92) 97 05/05/17 16:00 97.8 80 18 134/67 (89) 96 05/05/17 12:00 97.8 80 18 117/65 (82) 97 I/O 05/05/17 05/05/17 05/05/17 05/06/17 05/06/17 05/06/17 07:00 15:00 23:00 07:00 15:00 23:00 Intake Total 480 ml 1110 ml 0 ml Output Total 750 ml 1 ml 903 ml Balance -270 ml -1 ml 207 ml 0 ml Intake Oral 480 ml 1110 ml 0 ml Output Urine Total 750 ml 900 ml Stool Total 1 ml 3 ml # Voids 4 # Bowel Movements 1 3 Result Diagram: 05/06/17 0740 05/06/17 0740 Imaging Last Impressions Head CT 05/06/17 0000 Signed Impressions: Service Date/Time: Saturday, May 06, 2017 09:36 - CONCLUSION: No acute intracranial abnormality is identified. Bear Coffey MD Objective Remarks GENERAL: Well-developed patient in no apparent distress eating breakfast. SKIN: Significantly jaundiced. EYES: Scleral icterus. Pupils round and equal in size. EOMs intact. CARDIOVASCULAR: Regular rate and rhythm. RESPIRATORY: No accessory muscle use. Clear to auscultation. Breath sounds equal bilaterally. GASTROINTESTINAL: Normoactive bowel sounds. Abdomen soft, non-tender; slightly distended but patient is not in a fully relaxed position. NEUROLOGICAL: Awake and alert. Does not know where he is. Thinks it is May 2018. Knows the president. No obvious cranial nerve deficits. 5/5 provider education specialist strength bilaterally. 4+/5 equal strength B/L quadriceps. Normal speech. PSYCHIATRIC: Appropriate mood and affect. Urinary Catheter: No Vascular Central Line Catheter: No A/P Problem List: (1) Acute alcoholic hepatitis ICD Code: K70.10 - Alcoholic hepatitis without ascites (2) Fall ICD Code: W19.XXXA - Unspecified fall, initial encounter Status: Acute (3) Hyperbilirubinemia ICD Code: E80.6 - Other disorders of bilirubin metabolism Status: Acute (4) Candidiasis of scrotum ICD Code: B37.49 - Other urogenital candidiasis (5) Electrolyte disturbance ICD Code: E87.8 - Other disorders of electrolyte and fluid balance, not elsewhere classified (6) Liver function failure ICD Code: K72.90 - Hepatic failure, unspecified without coma (7) Hyperammonemia ICD Code: E72.20 - Disorder of urea cycle metabolism, unspecified Status: Acute (8) Alcohol withdrawal ICD Code: F10.239 - Alcohol dependence with withdrawal, unspecified Status: Acute (9) Generalized weakness ICD Code: R53.1 - Weakness (10) Thrombocytopenia ICD Code: D69.6 - Thrombocytopenia, unspecified Status: Acute (11) Hyponatremia ICD Code: E87.1 - Hypo-osmolality and hyponatremia Status: Acute (12) Coagulopathy ICD Code: D68.9 - Coagulation defect, unspecified Status: Acute (13) Transaminitis ICD Code: R74.0 - Nonspecific elevation of levels of transaminase and lactic acid dehydrogenase [LDH] Status: Acute Assessment and Plan Fall: Acute. Apparently unwitnessed. CT brain ordered as head injury is unknown. CT brain personally interpreted with no acute abnormality. -Fall precautions/bed alarm -Sitter -Continue PT Hypernatremia & hyperchloremia: Improving. Likely due to diuretic use; patient also on fluid restrictions. -05/06: BMP this morning with decreased Na 146 and Cl 114. -Monitor Pre-renal azotemia: May be due to diuretic use. -05/06: BUN 28 slightly worse than yesterday. Cr normal. Alcoholic liver disease/acute liver failure with acute alcoholic hepatitis and severe hyperbilirubinemia, coagulopathy. -GI following -Continue Pentoxifylline. -Continue Prednisone x 4 weeks. Taper 1 week out. -Continue Spironolactone. Held this morning due to hypotension. -05/06: AST, ALT, and alkaline phosphatase mildly elevated from prior labs on , but T bili is mildly improved from prior. Metabolic encephalopathy: He may have some component of alcohol-related cognitive impairment/dementia. -05/06: Again appears confused this morning. Ammonia level normal. Na level improving. Continue medications as above. Monitor clinically. Thrombocytopenia: Secondary to liver disease. -05/06: Platelets stable Leukocytosis: Improving. Likely due to steroids. No sign of infection. -05/06: WBC 15.0-->13.5. Generalized weakness status post fall at home. Likely deconditioning secondary to alcoholism. -Continue physical therapy. Pending rehab placement. Candidiasis and edema of scrotum: Resolved. -Continue nystatin cream and elevation. Continue Remeron for suspected depression causing decreased appetite. Alcohol withdrawal syndrome: Resolved Severe hyponatremia: Resolved. Hypervolemic secondary to cirrhosis. DVT prophylaxis with SCDs; unable to do chemoprophylaxis due to low platelets. Discharge Planning 05/02/17: [facility] CM [facility] and [facility]. [facility] cannot take patient until he is more mentally appropriate. Problem Qualifiers (1) Alcohol withdrawal: Qualified Codes: F10.230 - Alcohol dependence with withdrawal, uncomplicated Marcela Mora May 06, 2017 09:11
--- NOTE | 2017-05-06 09:56 | RADRPT ---
EXAM DATE/TIME: 05/06/2017 09:36 [facility] COMPARISON: No previous studies available for comparison. INDICATIONS : Patient found on floor. Fall. RADIATION DOSE: 56.01 CTDIvol (mGy) MEDICAL HISTORY : Cirrhosis. SURGICAL HISTORY : None. ENCOUNTER: Initial ACUITY: 1 day PAIN SCALE: 0/10 LOCATION: Bilateral cranial TECHNIQUE: Multiple contiguous axial images were obtained of the head. Using automated exposure control and adj ustment of the mA and/or kV according to patient size, radiation dose was kept as low as reasonably a chievable to obtain optimal diagnostic quality images. DICOM format image data is available electro nically for review and comparison. FINDINGS: CEREBRUM: There is mild general atrophy. Ventricles are normal in size. No midline shift, mass lesion, hemorrh age or acute infarction. No extra-axial fluid collections are seen. POSTERIOR FOSSA: The cerebellum and brainstem demonstrate no acute finding. The 4th ventricle is midline. The cerebe llopontine angle is unremarkable. EXTRACRANIAL: Visualized sinuses are clear. SKULL: The calvaria is intact. No evidence of skull fracture. CONCLUSION: No acute intracranial abnormality is identified. Bear Coffey MD on May 06, 2017 at 9:53 Board Certified Radiologist. This report was verified electronically.
[2017-05-06 10:23] LABS: INDIRECT BILIRUBIN 3.5 MG/DL (0.0-0.8); TOTAL BILIRUBIN ADULT 21.6 MG/DL (0.2-1.0)
[2017-05-06] MEDS: NYSTATIN 100,000 UNIT/GM CREAM 15 GM TOPICAL SCH ×2 (11:44→20:55)
[2017-05-06 14:05] VITALS: BP 97/74; PULSE 59; RESP 18; TEMP 96.9; O2SAT 98
[2017-05-06 16:00] VITALS: BP 110/60; PULSE 70; RESP 18; TEMP 98.2; O2SAT 97
[2017-05-06 20:00] VITALS: BP 119/71; PULSE 67; RESP 20; TEMP 97.3; O2SAT 100
[2017-05-06] MEDS: MIRTAZAPINE 15 MG TAB PO SCH (20:51)
[2017-05-06] MEDS: ACETAMINOPHEN/HYDROcodone 325 MG/10 MG TAB PO PRN (20:51)
[2017-05-07 00:06] VITALS: BP 121/76; PULSE 78; RESP 16; TEMP 98; O2SAT 98
[2017-05-07 04:04] VITALS: BP 138/76; PULSE 80; RESP 18; TEMP 98.7; O2SAT 97
[2017-05-07 08:00] VITALS: BP 106/70; PULSE 58; RESP 18; TEMP 96.9; O2SAT 98
[2017-05-07] MEDS: NADOLOL 20 MG TAB PO SCH (08:51)
[2017-05-07] MEDS: THIAMINE HCL 100 MG TAB PO SCH (08:51)
[2017-05-07] MEDS: PENTOXIFYLLINE 400 MG CONTROLLED RELEASE TAB PO SCH ×2 (08:51→22:22)
[2017-05-07] MEDS: predniSONE 10 MG TAB PO SCH (08:51)
[2017-05-07] MEDS: POTASSIUM CHLORIDE 20 MEQ CONTROLLED RELEASE TAB PO SCH (08:51)
[2017-05-07] MEDS: SPIRONOLACTONE 50 MG TAB PO SCH (08:51)
[2017-05-07] MEDS: SODIUM CHLORIDE 0.9% FLUSH 10 ML FLUSH IV FLUSH SCH ×2 (08:52→21:00)
--- NOTE | 2017-05-07 08:55 | HHI.PR ---
Subjective Remarks Follow-up for alcoholic liver disease/failure. Denies any fevers or chills, chest pain, shortness of breath, cough, abdominal pain, vomiting, diarrhea, hematochezia, or melena. Objective Vitals Vital Signs Date Time Temp Pulse Resp B/P (MAP) Pulse Ox O2 Delivery O2 Flow Rate FiO2 05/07/17 08:00 96.9 58 18 106/70 (82) 98 05/07/17 04:04 98.7 80 18 138/76 (96) 97 05/07/17 00:06 98.0 78 16 121/76 (91) 98 05/06/17 20:00 97.3 67 20 119/71 (87) 100 05/06/17 16:00 98.2 70 18 110/60 (77) 97 05/06/17 14:05 96.9 59 18 97/74 (82) 98 I/O 05/06/17 05/06/17 05/06/17 05/07/17 05/07/17 05/07/17 07:00 15:00 23:00 07:00 15:00 23:00 Intake Total 0 ml 1540 ml Output Total 604 ml Balance 0 ml 936 ml Intake Oral 0 ml 1540 ml Output Urine Total 600 ml Stool Total 4 ml # Voids 4 4 4 # Bowel Movements 3 0 1 Result Diagram: 05/06/17 0740 05/06/17 0740 Objective Remarks GENERAL: Well-developed patient in no apparent distress. SKIN: Significantly jaundiced. EYES: Scleral icterus. CARDIOVASCULAR: Regular rate and rhythm. RESPIRATORY: No accessory muscle use. Clear to auscultation. Breath sounds equal bilaterally. GASTROINTESTINAL: Active bowel sounds in all 4 quadrants. Abdomen soft, non- tender, non-distended. NEUROLOGICAL: [place]ake and alert. [place] he is at the hospital. Knows the month, year, and president. 5/5 cyber security strength bilaterally. 5/5 muscle strength Right quadriceps and 4/5 strength Left quadriceps, which patient states is chronically weaker. Normal speech. PSYCHIATRIC: Appropriate mood and affect. Urinary Catheter: No Vascular Central Line Catheter: No A/P Problem List: (1) Acute alcoholic hepatitis ICD Code: K70.10 - Alcoholic hepatitis without ascites (2) Fall ICD Code: W19.XXXA - Unspecified fall, initial encounter Status: Acute (3) Hyperbilirubinemia ICD Code: E80.6 - Other disorders of bilirubin metabolism Status: Acute (4) Candidiasis of scrotum ICD Code: B37.49 - Other urogenital candidiasis (5) Electrolyte disturbance ICD Code: E87.8 - Other disorders of electrolyte and fluid balance, not elsewhere classified (6) Liver function failure ICD Code: K72.90 - Hepatic failure, unspecified without coma (7) Hyperammonemia ICD Code: E72.20 - Disorder of urea cycle metabolism, unspecified Status: Acute (8) Alcohol withdrawal ICD Code: F10.239 - Alcohol dependence with withdrawal, unspecified Status: Acute (9) Generalized weakness ICD Code: R53.1 - Weakness (10) Thrombocytopenia ICD Code: D69.6 - Thrombocytopenia, unspecified Status: Acute (11) Hyponatremia ICD Code: E87.1 - Hypo-osmolality and hyponatremia Status: Acute (12) Coagulopathy ICD Code: D68.9 - Coagulation defect, unspecified Status: Acute (13) Transaminitis ICD Code: R74.0 - Nonspecific elevation of levels of transaminase and lactic acid dehydrogenase [LDH] Status: Acute Assessment and Plan Hypernatremia & hyperchloremia: Improving. Likely due to diuretic use; patient also on fluid restrictions. -05/07: BMP reviewed this morning. Hypernatremia resolved and Cl stable at 114. -Monitor Pre-renal azotemia: Stable. May be due to diuretic use. -05/07: BUN 28-->29. Cr normal. -Continue to monitor. Alcoholic liver disease/acute liver failure with acute alcoholic hepatitis and severe hyperbilirubinemia, coagulopathy. -GI following -Continue Pentoxifylline. -Continue Prednisone x 4 weeks. Taper 1 week out. -Continue Spironolactone. -05/06: AST, ALT, and alkaline phosphatase mildly elevated from prior labs on , but T bili is mildly improved from prior. Metabolic encephalopathy: He may have some component of alcohol-related cognitive impairment/dementia. -05/06: Again appears confused this morning. Ammonia level normal. Na level improving. Continue medications as above. Monitor clinically. -05/07: Still partially confused. Thrombocytopenia: Secondary to liver disease. -05/06: Platelets stable Leukocytosis: Improving. Likely due to steroids. No sign of infection. -05/06: WBC 15.0-->13.5. Generalized weakness/Falls: status post fall at home and in hospital. Likely deconditioning secondary to alcoholism. CT brain with no acute abnormality. -Fall precautions/bed alarm -Sitter -Continue PT -Pending rehab placement. Candidiasis and edema of scrotum: Resolved. -Continue nystatin cream and elevation. Continue Remeron for suspected depression causing decreased appetite. Alcohol withdrawal syndrome: Resolved Severe hyponatremia: Resolved. Hypervolemic secondary to cirrhosis. DVT prophylaxis with SCDs; unable to do chemoprophylaxis due to low platelets. Discharge Planning 05/02/17: Per CM patient is [facility] and facility options are limited. [facility] cannot take patient until he is more mentally appropriate. Problem Qualifiers (1) Alcohol withdrawal: Qualified Codes: F10.230 - Alcohol dependence with withdrawal, uncomplicated Marcela Mora May 07, 2017 08:55
[2017-05-07 09:01] LABS: POTASSIUM 3.5 MEQ/L (3.5-5.1)
[2017-05-07 09:04] LABS: BICARBONATE 24.3 MEQ/L (21.0-32.0)
--- NOTE | 2017-05-07 09:39 | HHI.PR ---
Subjective Remarks This report is in ERROR Please disregard this report and all prior copies ! This report is in ERROR Please disregard this report and all prior copies ! This report is in ERROR Please disregard this report and all prior copies ! Objective Vitals Vital Signs Date Time Temp Pulse Resp B/P (MAP) Pulse Ox O2 Delivery O2 Flow Rate FiO2 05/07/17 08:00 96.9 58 18 106/70 (82) 98 05/07/17 04:04 98.7 80 18 138/76 (96) 97 05/07/17 00:06 98.0 78 16 121/76 (91) 98 05/06/17 20:00 97.3 67 20 119/71 (87) 100 05/06/17 16:00 98.2 70 18 110/60 (77) 97 05/06/17 14:05 96.9 59 18 97/74 (82) 98 I/O 05/06/17 05/06/17 05/06/17 05/07/17 05/07/17 05/07/17 07:00 15:00 23:00 07:00 15:00 23:00 Intake Total 0 ml 1540 ml Output Total 604 ml Balance 0 ml 936 ml Intake Oral 0 ml 1540 ml Output Urine Total 600 ml Stool Total 4 ml # Voids 4 4 4 # Bowel Movements 3 0 1 Result Diagram: 05/06/17 0740 05/07/17 0817 A/P Problem List: (1) Acute alcoholic hepatitis ICD Code: K70.10 - Alcoholic hepatitis without ascites (2) Fall ICD Code: W19.XXXA - Unspecified fall, initial encounter Status: Acute (3) Hyperbilirubinemia ICD Code: E80.6 - Other disorders of bilirubin metabolism Status: Acute (4) Candidiasis of scrotum ICD Code: B37.49 - Other urogenital candidiasis (5) Electrolyte disturbance ICD Code: E87.8 - Other disorders of electrolyte and fluid balance, not elsewhere classified (6) Liver function failure ICD Code: K72.90 - Hepatic failure, unspecified without coma (7) Hyperammonemia ICD Code: E72.20 - Disorder of urea cycle metabolism, unspecified Status: Acute (8) Alcohol withdrawal ICD Code: F10.239 - Alcohol dependence with withdrawal, unspecified Status: Acute (9) Generalized weakness ICD Code: R53.1 - Weakness (10) Thrombocytopenia ICD Code: D69.6 - Thrombocytopenia, unspecified Status: Acute (11) Hyponatremia ICD Code: E87.1 - Hypo-osmolality and hyponatremia Status: Acute (12) Coagulopathy ICD Code: D68.9 - Coagulation defect, unspecified Status: Acute (13) Transaminitis ICD Code: R74.0 - Nonspecific elevation of levels of transaminase and lactic acid dehydrogenase [LDH] Status: Acute Discharge Planning 05/02/17: Per CM patient is [facility] and facility options are limited. [facility] cannot take patient until he is more mentally appropriate. Problem Qualifiers (1) Alcohol withdrawal: Qualified Codes: F10.230 - Alcohol dependence with withdrawal, uncomplicated Marcela Mora May 07, 2017 09:38
[2017-05-07] MEDS: NYSTATIN 100,000 UNIT/GM CREAM 15 GM TOPICAL SCH ×2 (10:16→21:00)
[2017-05-07] MEDS: ACETAMINOPHEN/HYDROcodone 325 MG/10 MG TAB PO PRN (10:25)
[2017-05-07 20:00] VITALS: BP 99/65; PULSE 59; RESP 20; TEMP 96.8; O2SAT 98
[2017-05-07] MEDS: MIRTAZAPINE 15 MG TAB PO SCH (22:22)
[2017-05-08 08:00] VITALS: BP 82/60; PULSE 58; RESP 19; TEMP 96.2; O2SAT 98
[2017-05-08] MEDS: SODIUM CHLORIDE 0.9% FLUSH 10 ML FLUSH IV FLUSH SCH (09:00)
[2017-05-08] MEDS: NADOLOL 20 MG TAB PO SCH (10:43)
[2017-05-08] MEDS: NYSTATIN 100,000 UNIT/GM CREAM 15 GM TOPICAL SCH ×2 (10:43→21:43)
[2017-05-08] MEDS: THIAMINE HCL 100 MG TAB PO SCH (10:43)
[2017-05-08] MEDS: POTASSIUM CHLORIDE 20 MEQ CONTROLLED RELEASE TAB PO SCH (10:43)
[2017-05-08] MEDS: PENTOXIFYLLINE 400 MG CONTROLLED RELEASE TAB PO SCH ×2 (10:43→21:43)
[2017-05-08] MEDS: SPIRONOLACTONE 50 MG TAB PO SCH (10:43)
[2017-05-08] MEDS: predniSONE 10 MG TAB PO SCH (10:44)
--- NOTE | 2017-05-08 11:29 | HHI.PR ---
Subjective Remarks Patient seen and examined today for follow-up on alcohol liver disease, liver failure. Patient denies any new complaints today. Patient still not completely orientated. Only orientated to person, city, state Objective Vitals Vital Signs Date Time Temp Pulse Resp B/P (MAP) Pulse Ox O2 Delivery O2 Flow Rate FiO2 05/08/17 08:00 96.2 58 19 82/60 (67) 98 05/07/17 20:00 96.8 59 20 99/65 (76) 98 I/O 05/07/17 05/07/17 05/07/17 05/08/17 05/08/17 05/08/17 07:00 15:00 23:00 07:00 15:00 23:00 Intake Total 1190 ml 240 ml Output Total 1040 ml 600 ml Balance 150 ml -360 ml Intake Oral 1190 ml 240 ml Output Urine Total 1040 ml 600 ml # Voids 4 # Bowel Movements 1 2 4 Result Diagram: 05/06/17 0740 05/07/17 0817 Objective Remarks GENERAL: Well-developed, well-nourished, in no acute distress. alert and orientated to person, city, state HEENT: Head is normocephalic without any lesions or masses noted. Facial features are symmetric. Eyes: Extraocular muscles are intact. Conjunctivae sclerae are icteric, NECK: Supple without any masses. Trachea midline no deviation. No JVD, CARDIAC: Regular rhythm, regular rate. S1/S2 are heard. No murmurs gallops or rubs. LUNGS: Clear to auscultation bilaterally. No wheeze, rhonchi or rales. No use of accessory muscles on inspiration or expiration. ABDOMEN: Soft, nontender. Nondistended. Bowel sounds heard in all 4 quadrants. No organomegaly or masses. Negative rebound, negative guarding EXTREMITIES: No edema, pulses are equal bilaterally. No cyanosis or clubbing NEUROLOGY: Mood and affect appear appropriate. Cranial nerves II through XII grossly intact. Moving all extremities, speech is clear Urinary Catheter: No Vascular Central Line Catheter: No A/P Assessment and Plan Alcoholic liver disease/acute liver failure with acute alcoholic hepatitis, severe hyperbilirubinemia, coagulopathy, hepatic encephalopathy, alcohol- related cognitive impairment/dementia, thrombocytopenia. Elevated liver enzymes appeared to be slowly improving GI consulted and continued follow the patient Continue Pentoxifylline. Continue Prednisone x 4 weeks. Taper 1 week out. Continue Spironolactone. Generalized weakness/Falls: status post fall at home and in hospital. Secondary to deconditioning from alcoholism. Workup does not indicate any acute abnormality Fall precautions/bed alarm, Sitter Continue physical therapy Pre-renal azotemia: Stable. Could have been secondary to diuretic use Continue monitor Hyponatremia/hypernatremia, resolved Likely secondary to cirrhosis Continue monitor and address as needed Leukocytosis, improving Secondary to steroid use No signs of infection, patient afebrile Depression with decreased appetite Continue Remeron DVT prophylaxis Sequential compression devices, unable to do chemoprophylaxis due to low platelets. Discharge Planning Discharge planning per case management Adama Koch May 08, 2017 11:29
[2017-05-08] MEDS ORDERED: ONDANSETRON ODT 4 MG TAB PO PRN (11:30)
[2017-05-08 20:00] VITALS: BP 99/68; PULSE 62; RESP 20; TEMP 96.9; O2SAT 99
[2017-05-08] MEDS: MIRTAZAPINE 15 MG TAB PO SCH (21:43)
[2017-05-09 08:00] VITALS: BP 99/63; PULSE 58; RESP 20; TEMP 96.8; O2SAT 98
[2017-05-09 09:21] LABS: BASOPHIL % 0.1 % (0.0-2.0); EOSINOPHIL % 0.3 % (0.0-4.0); HEMATOCRIT 35.1 % (39.0-51.0); LYMPH % 15.3 % (9.0-44.0); LYMPHOCYTE # 2.1 TH/MM3 (1.0-4.8); MEAN CELL VOLUME 109.7 FL (80.0-100.0); MEAN CORPUSCULAR HEMOGLOBIN 38.5 PG (27.0-34.0); MEAN CORPUSCULAR HGB CONC 35.1 % (32.0-36.0); NEUT % 81.3 % (16.0-70.0); PLATELET COUNT 56 TH/MM3 (150-450); RED CELL DISTRIBUTION WIDTH 19.1 % (11.6-17.2); WHITE BLOOD COUNT 13.5 TH/MM3 (4.0-11.0)
[2017-05-09] MEDS: SPIRONOLACTONE 50 MG TAB PO SCH (09:23)
[2017-05-09] MEDS: NADOLOL 20 MG TAB PO SCH (09:23)
[2017-05-09] MEDS: POTASSIUM CHLORIDE 20 MEQ CONTROLLED RELEASE TAB PO SCH (09:24)
[2017-05-09] MEDS: NYSTATIN 100,000 UNIT/GM CREAM 15 GM TOPICAL SCH ×2 (09:24→22:36)
[2017-05-09] MEDS: THIAMINE HCL 100 MG TAB PO SCH (09:24)
[2017-05-09] MEDS: PENTOXIFYLLINE 400 MG CONTROLLED RELEASE TAB PO SCH ×2 (09:24→22:36)
[2017-05-09] MEDS: predniSONE 10 MG TAB PO SCH (09:24)
[2017-05-09 09:28] LABS: HEMO FLAGS AUTO DIFF
[2017-05-09 09:51] LABS: PLATELET ESTIMATE SMEAR LOW (NORMAL); PLATELET MORPHOLOGY NORMAL (NORMAL); TARGET CELLS 1+ (NORMAL)
[2017-05-09 09:52] LABS: SCAN/DIFF AUTO DIFF CONFIRMED
[2017-05-09 10:01] LABS: BLOOD UREA NITROGEN 36 MG/DL (7-18)
[2017-05-09 10:02] LABS: ALKALINE PHOSPHATASE 230 U/L (45-117); ALT (GPT) 245 U/L (12-78); AST (GOT) 307 U/L (15-37); CHLORIDE 115 MEQ/L (98-107); GLOMERULAR FILTRATION RATE 70 ML/MIN (>89); POTASSIUM 3.6 MEQ/L (3.5-5.1); SODIUM (NA) 146 MEQ/L (136-145); TOTAL BILIRUBIN ADULT 22.4 MG/DL (0.2-1.0)
[2017-05-09 10:03] LABS: ANION GAP 8 MEQ/L (5-15); BICARBONATE 22.9 MEQ/L (21.0-32.0)
--- NOTE | 2017-05-09 11:44 | HHI.PR ---
Subjective Remarks Patient seen and examined today for follow-up on weakness, liver failure. Patient lying in bed carefully. Patient appears be more alert today. Patient does indicate that he is very weak. He is unable to walk. Objective Vitals Vital Signs Date Time Temp Pulse Resp B/P (MAP) Pulse Ox O2 Delivery O2 Flow Rate FiO2 05/09/17 08:00 96.8 58 20 99/63 (75) 98 05/08/17 20:00 96.9 62 20 99/68 (78) 99 I/O 05/08/17 05/08/17 05/08/17 05/09/17 05/09/17 05/09/17 07:00 15:00 23:00 07:00 15:00 23:00 Intake Total 240 ml 700 ml 240 ml Output Total 600 ml Balance -360 ml 700 ml 240 ml Intake Oral 240 ml 700 ml 240 ml Output Urine Total 600 ml # Voids 4 4 # Bowel Movements 4 0 4 Result Diagram: 05/09/1730 05/09/17 0830 Objective Remarks GENERAL: Well-developed, well-nourished, in no acute distress. alert and orientated to person, city, state, year HEENT: Head is normocephalic without any lesions or masses noted. Facial features are symmetric. Eyes: Extraocular muscles are intact. Conjunctivae sclerae are icteric, NECK: Supple without any masses. Trachea midline no deviation. No JVD, CARDIAC: Regular rhythm, regular rate. S1/S2 are heard. No murmurs gallops or rubs. LUNGS: Clear to auscultation bilaterally. No wheeze, rhonchi or rales. No use of accessory muscles on inspiration or expiration. ABDOMEN: Soft, nontender. Nondistended. Bowel sounds heard in all 4 quadrants. No organomegaly or masses. Negative rebound, negative guarding EXTREMITIES: No edema, pulses are equal bilaterally. No cyanosis or clubbing NEUROLOGY: Mood and affect appear appropriate. Cranial nerves II through XII grossly intact. Moving all extremities, speech is clear Urinary Catheter: No Vascular Central Line Catheter: No A/P Assessment and Plan Alcoholic liver disease/acute liver failure with acute alcoholic hepatitis, severe hyperbilirubinemia, coagulopathy, hepatic encephalopathy, alcohol- related cognitive impairment/dementia, thrombocytopenia. Elevated liver enzymes, continue monitor GI consulted and continued follow the patient Continue Pentoxifylline. Continue Prednisone x 4 weeks. Taper 1 week out. Continue Spironolactone. Generalized weakness/Falls: status post fall at home and in hospital. Secondary to deconditioning from alcoholism. Workup does not indicate any acute abnormality Fall precautions/bed alarm, Sitter Continue physical therapy Physical therapy indicates that patient will require wheeled walker and physical therapy at rehabilitation facility Pre-renal azotemia: Stable. Could have been secondary to diuretic use Continue monitor Hyponatremia/hypernatremia, Likely secondary to cirrhosis Continue monitor and address as needed Leukocytosis, improving Secondary to steroid use No signs of infection, patient afebrile Depression with decreased appetite Continue Remeron DVT prophylaxis Sequential compression devices, unable to do chemoprophylaxis due to low platelets. Discharge Planning Discharge planning per case management Adama Koch May 09, 2017 11:44
[2017-05-09 20:00] VITALS: BP 111/78; PULSE 65; RESP 20; TEMP 96; O2SAT 99
[2017-05-09] MEDS: MIRTAZAPINE 15 MG TAB PO SCH (22:36)
[2017-05-10] MEDS: THIAMINE HCL 100 MG TAB PO SCH (07:50)
[2017-05-10] MEDS: predniSONE 10 MG TAB PO SCH (07:50)
[2017-05-10] MEDS: POTASSIUM CHLORIDE 20 MEQ CONTROLLED RELEASE TAB PO SCH (07:50)
[2017-05-10] MEDS: PENTOXIFYLLINE 400 MG CONTROLLED RELEASE TAB PO SCH ×2 (07:51→21:41)
[2017-05-10] MEDS: SPIRONOLACTONE 50 MG TAB PO SCH (07:51)
[2017-05-10] MEDS: NADOLOL 20 MG TAB PO SCH ×2 (07:54→07:58)
[2017-05-10 08:00] VITALS: BP 85/56; PULSE 60; RESP 20; TEMP 96.2; O2SAT 98
[2017-05-10] MEDS: NYSTATIN 100,000 UNIT/GM CREAM 15 GM TOPICAL SCH ×2 (08:45→21:41)
--- NOTE | 2017-05-10 09:01 | HHI.PR ---
Subjective Remarks Patient seen and examined today for follow-up on liver failure, weakness. [facility] states that [facility] by the [facility]. Patient is any worse encephalopathy today. States that he was outside walking his dogs today and then brought to this hospital. Objective Vitals Vital Signs Date Time Temp Pulse Resp B/P (MAP) Pulse Ox O2 Delivery O2 Flow Rate FiO2 05/10/17 08:00 96.2 60 20 85/56 (66) 98 05/09/17 20:00 96.0 65 20 111/78 (89) 99 I/O 05/09/17 05/09/17 05/09/17 05/10/17 05/10/17 05/10/17 07:00 15:00 23:00 07:00 15:00 23:00 Intake Total 240 ml 650 ml 310 ml 60 ml Output Total 925 ml 500 ml 400 ml Balance 240 ml -275 ml -190 ml -340 ml Intake Oral 240 ml 650 ml 310 ml 60 ml Output Urine Total 925 ml 500 ml 400 ml # Voids 4 1 1 2 # Bowel Movements 4 1 0 2 Result Diagram: 05/09/1730 05/09/17 0830 Objective Remarks GENERAL: Well-developed, well-nourished, in no acute distress. alert and orientated to person, city, state, year HEENT: Head is normocephalic without any lesions or masses noted. Facial features are symmetric. Eyes: Extraocular muscles are intact. Conjunctivae sclerae are icteric, NECK: Supple without any masses. Trachea midline no deviation. No JVD, CARDIAC: Regular rhythm, regular rate. S1/S2 are heard. No murmurs gallops or rubs. LUNGS: Clear to auscultation bilaterally. No wheeze, rhonchi or rales. No use of accessory muscles on inspiration or expiration. ABDOMEN: Soft, nontender. Nondistended. Bowel sounds heard in all 4 quadrants. No organomegaly or masses. Negative rebound, negative guarding EXTREMITIES: No edema, pulses are equal bilaterally. No cyanosis or clubbing NEUROLOGY: Mood and affect appear appropriate. Cranial nerves II through XII grossly intact. Moving all extremities, speech is clear Urinary Catheter: No Vascular Central Line Catheter: No A/P Assessment and Plan Alcoholic liver disease/acute liver failure with acute alcoholic hepatitis, severe hyperbilirubinemia, coagulopathy, hepatic encephalopathy, alcohol- related cognitive impairment/dementia, thrombocytopenia. Elevated liver enzymes, continue monitor GI consulted and continued follow the patient Continue Corgard with hold parameters Continue Pentoxifylline. Continue Prednisone x 4 weeks(05/26/17). Taper 1 week out. Continue Spironolactone. Generalized weakness/Falls: status post fall at home and in hospital. Secondary to deconditioning from alcoholism. Workup does not indicate any acute abnormality Fall precautions/bed alarm, Sitter Continue physical therapy Physical therapy indicates that patient will require wheeled walker and physical therapy at rehabilitation facility Pre-renal azotemia: Stable. Could have been secondary to diuretic use Continue monitor Hyponatremia/hypernatremia, Likely secondary to cirrhosis Continue monitor and address as needed Leukocytosis, improving Secondary to steroid use No signs of infection, patient afebrile Depression with decreased appetite Continue Remeron DVT prophylaxis Sequential compression devices, unable to do chemoprophylaxis due to low platelets. Discharge Planning Discharge planning per case management Adama Koch May 10, 2017 09:01
[2017-05-10 20:00] VITALS: BP 106/72; PULSE 62; RESP 18; TEMP 98; O2SAT 99
[2017-05-10] MEDS: MIRTAZAPINE 15 MG TAB PO SCH (21:41)
[2017-05-11 06:22] LABS: AUTOMATED NEUTROPHIL # 10.5 TH/MM3 (1.8-7.7); BASOPHIL # 0.2 TH/MM3 (0-0.2); BASOPHIL % 1.4 % (0.0-2.0); EOSINOPHIL # 0.1 TH/MM3 (0-0.4); EOSINOPHIL % 0.4 % (0.0-4.0); HEMATOCRIT 35.9 % (39.0-51.0); LYMPH % 14.1 % (9.0-44.0); LYMPHOCYTE # 1.9 TH/MM3 (1.0-4.8); MEAN CELL VOLUME 109.1 FL (80.0-100.0); MEAN CORPUSCULAR HEMOGLOBIN 38.2 PG (27.0-34.0); MONO % 6.2 % (0.0-8.0); NEUT % 77.9 % (16.0-70.0); PLATELET COUNT 63 TH/MM3 (150-450); RED BLOOD COUNT 3.29 MIL/MM3 (4.50-5.90); RED CELL DISTRIBUTION WIDTH 19.1 % (11.6-17.2); WHITE BLOOD COUNT 13.5 TH/MM3 (4.0-11.0)
[2017-05-11 06:25] LABS: CHLORIDE 114 MEQ/L (98-107); HEMO FLAGS AUTO DIFF; POTASSIUM 3.8 MEQ/L (3.5-5.1); SODIUM (NA) 145 MEQ/L (136-145)
[2017-05-11 06:34] LABS: ANION GAP 9 MEQ/L (5-15); BICARBONATE 21.8 MEQ/L (21.0-32.0); BLOOD UREA NITROGEN 43 MG/DL (7-18)
[2017-05-11 06:37] LABS: ALT (GPT) 259 U/L (12-78); AST (GOT) 312 U/L (15-37); GLOMERULAR FILTRATION RATE 70 ML/MIN (>89)
[2017-05-11 06:38] LABS: TOTAL BILIRUBIN ADULT 21.7 MG/DL (0.2-1.0)
[2017-05-11 06:40] LABS: ALKALINE PHOSPHATASE 268 U/L (45-117)
[2017-05-11 07:09] LABS: PLATELET ESTIMATE SMEAR LOW (NORMAL); PLATELET MORPHOLOGY NORMAL (NORMAL); ROULEAUX PRESENT (NORMAL); SCAN/DIFF AUTO DIFF CONFIRMED; TARGET CELLS 2+ (NORMAL)
[2017-05-11 08:00] VITALS: BP_SYST 153; BP_SYST 92; BP_DIAS 61; BP_DIAS 93; PULSE 59; PULSE 63; RESP 20; TEMP 95.5; TEMP 96.3; O2SAT 98; O2SAT 99
[2017-05-11] MEDS: THIAMINE HCL 100 MG TAB PO SCH (08:36)
[2017-05-11] MEDS: SPIRONOLACTONE 50 MG TAB PO SCH (08:37)
[2017-05-11] MEDS: NADOLOL 20 MG TAB PO SCH ×2 (08:37→08:50)
[2017-05-11] MEDS: POTASSIUM CHLORIDE 20 MEQ CONTROLLED RELEASE TAB PO SCH (08:37)
[2017-05-11] MEDS: PENTOXIFYLLINE 400 MG CONTROLLED RELEASE TAB PO SCH ×2 (08:38→21:48)
[2017-05-11] MEDS: predniSONE 10 MG TAB PO SCH (09:31)
[2017-05-11] MEDS: NYSTATIN 100,000 UNIT/GM CREAM 15 GM TOPICAL SCH ×2 (09:32→21:00)
--- NOTE | 2017-05-11 11:16 | HHI.PR ---
Subjective Remarks Patient seen and examined today for follow-up on liver failure, encephalopathy. Patient resting comfortably. Patient still with some cognition/memory issues from encephalopathy. Objective Vitals Vital Signs Date Time Temp Pulse Resp B/P (MAP) Pulse Ox O2 Delivery O2 Flow Rate FiO2 05/11/17 08:00 95.5 63 20 92/61 (71) 99 05/10/17 20:00 98.0 62 18 106/72 (83) 99 I/O 05/10/17 05/10/17 05/10/17 05/11/17 05/11/17 05/11/17 07:00 15:00 23:00 07:00 15:00 23:00 Intake Total 780 ml 120 ml Output Total 400 ml 225 ml Balance 380 ml -105 ml Intake Oral 780 ml 120 ml Output Urine Total 400 ml 225 ml # Voids 1 5 1 # Bowel Movements 4 1 Result Diagram: 05/11/17 0500 05/11/17 0500 Objective Remarks GENERAL: Well-developed, well-nourished, in no acute distress. alert and orientated to person, city, state, year HEENT: Head is normocephalic without any lesions or masses noted. Facial features are symmetric. Eyes: Extraocular muscles are intact. Conjunctivae sclerae are icteric, NECK: Supple without any masses. Trachea midline no deviation. No JVD, CARDIAC: Regular rhythm, regular rate. S1/S2 are heard. No murmurs gallops or rubs. LUNGS: Clear to auscultation bilaterally. No wheeze, rhonchi or rales. No use of accessory muscles on inspiration or expiration. ABDOMEN: Soft, nontender. Nondistended. Bowel sounds heard in all 4 quadrants. No organomegaly or masses. Negative rebound, negative guarding EXTREMITIES: No edema, pulses are equal bilaterally. No cyanosis or clubbing NEUROLOGY: Mood and affect appear appropriate. Cranial nerves II through XII grossly intact. Moving all extremities, speech is clear Urinary Catheter: No Vascular Central Line Catheter: No A/P Assessment and Plan Alcoholic liver disease/acute liver failure with acute alcoholic hepatitis, severe hyperbilirubinemia, coagulopathy, hepatic encephalopathy, alcohol- related cognitive impairment/dementia, thrombocytopenia. Elevated liver enzymes, continue monitor GI consulted and continued follow the patient Continue Corgard with hold parameters Continue Pentoxifylline. Continue Prednisone x 4 weeks(05/26/17). Taper 1 week out. Continue Spironolactone. Decreased to 25 mg daily due to blood pressure Generalized weakness/Falls: status post fall at home and in hospital. Secondary to deconditioning from alcoholism. Workup does not indicate any acute abnormality Fall precautions/bed alarm Continue physical therapy Physical therapy indicates that patient will require wheeled walker and physical therapy at rehabilitation facility Pre-renal azotemia: Stable. Could have been secondary to diuretic use Continue monitor Hyponatremia/hypernatremia, Likely secondary to cirrhosis Continue monitor and address as needed Leukocytosis, stable Secondary to steroid use No signs of infection, patient afebrile Depression with decreased appetite Continue Remeron DVT prophylaxis Sequential compression devices, unable to do chemoprophylaxis due to low platelets. Discharge Planning Discharge planning per case management Adama Koch May 11, 2017 11:16
[2017-05-11 20:00] VITALS: BP 119/76; PULSE 73; RESP 20; TEMP 96.6; O2SAT 100
[2017-05-11] MEDS: MIRTAZAPINE 15 MG TAB PO SCH (21:48)
[2017-05-12] MEDS ORDERED: HALOPERIDOL LACTATE 5 MG/ML AMP IM ONE (04:00)
[2017-05-12 08:00] VITALS: BP 130/70; PULSE 79; RESP 16; TEMP 97.5; O2SAT 94
--- NOTE | 2017-05-12 08:51 | HHI.PR ---
Subjective Remarks Patient seen and examined today for follow-up on liver failure, altered mentation, profound weakness. Patient denies any new complaints today. Patient appears to have improved mentation on a daily basis Objective Vitals Vital Signs Date Time Temp Pulse Resp B/P (MAP) Pulse Ox O2 Delivery O2 Flow Rate FiO2 05/11/17 20:00 96.6 73 20 119/76 (90) 100 I/O 05/11/17 05/11/17 05/11/17 05/12/17 05/12/17 05/12/17 07:00 15:00 23:00 07:00 15:00 23:00 Intake Total 120 ml 250 ml Output Total 225 ml Balance -105 ml 250 ml Intake Oral 120 ml 250 ml Output Urine Total 225 ml # Voids 1 5 1 # Bowel Movements 1 0 Result Diagram: 05/11/17 0500 05/11/17 0500 Objective Remarks GENERAL: Well-developed, well-nourished, in no acute distress. alert and orientated to person, city, state, year HEENT: Head is normocephalic without any lesions or masses noted. Facial features are symmetric. Eyes: Extraocular muscles are intact. Conjunctivae sclerae are icteric, NECK: Supple without any masses. Trachea midline no deviation. No JVD, CARDIAC: Regular rhythm, regular rate. S1/S2 are heard. No murmurs gallops or rubs. LUNGS: Clear to auscultation bilaterally. No wheeze, rhonchi or rales. No use of accessory muscles on inspiration or expiration. ABDOMEN: Soft, nontender. Nondistended. Bowel sounds heard in all 4 quadrants. No organomegaly or masses. Negative rebound, negative guarding EXTREMITIES: No edema, pulses are equal bilaterally. No cyanosis or clubbing NEUROLOGY: Mood and affect appear appropriate. Cranial nerves II through XII grossly intact. Moving all extremities, speech is clear Urinary Catheter: No Vascular Central Line Catheter: No A/P Assessment and Plan Alcoholic liver disease/acute liver failure with acute alcoholic hepatitis, severe hyperbilirubinemia, coagulopathy, hepatic encephalopathy, alcohol- related cognitive impairment/dementia, thrombocytopenia. Elevated liver enzymes, continue monitor GI consulted and continued follow the patient Continue Corgard with hold parameters Continue Pentoxifylline. Continue Prednisone x 4 weeks(05/26/17). Taper 1 week out. Continue Spironolactone 25 mg daily Generalized weakness/Falls: status post fall at home and in hospital. Secondary to deconditioning from alcoholism. Workup does not indicate any acute abnormality Fall precautions/bed alarm Continue physical therapy Physical therapy indicates that patient will require wheeled walker and physical therapy at rehabilitation facility Pre-renal azotemia: Stable. Could have been secondary to diuretic use Continue monitor Hyponatremia/hypernatremia, Likely secondary to cirrhosis Continue monitor and address as needed Leukocytosis, stable Secondary to steroid use No signs of infection, patient afebrile Depression with decreased appetite Continue Remeron DVT prophylaxis Sequential compression devices, unable to do chemoprophylaxis due to low platelets. Discharge Planning Discharge planning per case management Adama Koch May 12, 2017 08:51
[2017-05-12] MEDS: NYSTATIN 100,000 UNIT/GM CREAM 15 GM TOPICAL SCH ×2 (09:00→20:24)
[2017-05-12] MEDS: predniSONE 10 MG TAB PO SCH (09:08)
[2017-05-12] MEDS: THIAMINE HCL 100 MG TAB PO SCH (09:08)
[2017-05-12] MEDS: SPIRONOLACTONE 25 MG TAB PO SCH (09:08)
[2017-05-12] MEDS: NADOLOL 20 MG TAB PO SCH (09:08)
[2017-05-12] MEDS: PENTOXIFYLLINE 400 MG CONTROLLED RELEASE TAB PO SCH ×2 (09:08→20:23)
[2017-05-12] MEDS: POTASSIUM CHLORIDE 20 MEQ CONTROLLED RELEASE TAB PO SCH (09:08)
[2017-05-12] MEDS: MIRTAZAPINE 15 MG TAB PO SCH (20:23)
[2017-05-12 20:29] VITALS: BP 111/82; PULSE 61; RESP 14; TEMP 96.1; O2SAT 92
[2017-05-13 07:17] LABS: HEMATOCRIT 35.2 % (39.0-51.0); MEAN CELL VOLUME 109.9 FL (80.0-100.0); MEAN CORPUSCULAR HEMOGLOBIN 38.7 PG (27.0-34.0); MEAN CORPUSCULAR HGB CONC 35.2 % (32.0-36.0); PLATELET COUNT 78 TH/MM3 (150-450); RED BLOOD COUNT 3.21 MIL/MM3 (4.50-5.90); RED CELL DISTRIBUTION WIDTH 18.7 % (11.6-17.2); WHITE BLOOD COUNT 15.7 TH/MM3 (4.0-11.0)
[2017-05-13 07:24] LABS: HEMO FLAGS AUTO DIFF
[2017-05-13 07:25] LABS: CHLORIDE 114 MEQ/L (98-107); POTASSIUM 3.6 MEQ/L (3.5-5.1); SODIUM (NA) 144 MEQ/L (136-145)
[2017-05-13 07:34] LABS: ANION GAP 9 MEQ/L (5-15); BICARBONATE 20.7 MEQ/L (21.0-32.0); BLOOD UREA NITROGEN 52 MG/DL (7-18)
[2017-05-13 07:37] LABS: ALT (GPT) 295 U/L (12-78); AST (GOT) 350 U/L (15-37); GLOMERULAR FILTRATION RATE 58 ML/MIN (>89)
[2017-05-13 07:39] LABS: TOTAL BILIRUBIN ADULT 21.6 MG/DL (0.2-1.0)
[2017-05-13 07:40] LABS: ALKALINE PHOSPHATASE 309 U/L (45-117)
[2017-05-13 08:00] VITALS: BP 108/74; PULSE 62; RESP 20; TEMP 97.6; O2SAT 100
--- NOTE | 2017-05-13 08:27 | HHI.PR ---
Subjective Remarks Patient seen and examined today for follow-up on alcohol liver failure. Lipitor studies is not improving, patient mentation appears to be stable, still with confusion. Objective Vitals Vital Signs Date Time Temp Pulse Resp B/P (MAP) Pulse Ox O2 Delivery O2 Flow Rate FiO2 05/12/17 20:29 96.1 61 14 111/82 (92) 92 I/O 05/12/17 05/12/17 05/12/17 05/13/17 05/13/17 05/13/17 07:00 15:00 23:00 07:00 15:00 23:00 Output Total 1 ml 350 ml Balance -1 ml -350 ml Output Urine Total 1 ml 350 ml # Voids 1 1 2 # Bowel Movements 2 Result Diagram: 05/13/17 0650 05/13/17 0650 Objective Remarks GENERAL: Well-developed, well-nourished, in no acute distress. alert and orientated to person, city, state, year HEENT: Head is normocephalic without any lesions or masses noted. Facial features are symmetric. Eyes: Extraocular muscles are intact. Conjunctivae sclerae are icteric, NECK: Supple without any masses. Trachea midline no deviation. No JVD, CARDIAC: Regular rhythm, regular rate. S1/S2 are heard. No murmurs gallops or rubs. LUNGS: Clear to auscultation bilaterally. No wheeze, rhonchi or rales. No use of accessory muscles on inspiration or expiration. ABDOMEN: Soft, nontender. Nondistended. Bowel sounds heard in all 4 quadrants. No organomegaly or masses. Negative rebound, negative guarding EXTREMITIES: No edema, pulses are equal bilaterally. No cyanosis or clubbing NEUROLOGY: Mood and affect appear appropriate. Cranial nerves II through XII grossly intact. Moving all extremities, speech is clear Urinary Catheter: No Vascular Central Line Catheter: No A/P Assessment and Plan Alcoholic liver disease/acute liver failure with acute alcoholic hepatitis, severe hyperbilirubinemia, coagulopathy, hepatic encephalopathy, alcohol- related cognitive impairment/dementia, thrombocytopenia. Elevated liver enzymes, continue monitor GI consulted and made recommendations, will need to discuss with GI further treatment plan Continue Corgard with hold parameters Continue Pentoxifylline. Continue Prednisone x 4 weeks(05/26/17). Taper 1 week out. Continue Spironolactone 25 mg daily Generalized weakness/Falls: status post fall at home and in hospital. Secondary to deconditioning from alcoholism. Workup does not indicate any acute abnormality Fall precautions/bed alarm Continue physical therapy Physical therapy indicates that patient will require wheeled walker and physical therapy at rehabilitation facility Pre-renal azotemia: Stable. Could have been secondary to diuretic use Continue monitor Hyponatremia/hypernatremia, Likely secondary to cirrhosis Continue monitor and address as needed Leukocytosis, stable Secondary to steroid use No signs of infection, patient afebrile Depression with decreased appetite Continue Remeron DVT prophylaxis Sequential compression devices, unable to do chemoprophylaxis due to low platelets. Discharge Planning Discharge planning per case management Adama Koch May 13, 2017 08:27
[2017-05-13] MEDS: POTASSIUM CHLORIDE 20 MEQ CONTROLLED RELEASE TAB PO SCH (08:30)
[2017-05-13] MEDS: NADOLOL 20 MG TAB PO SCH (08:30)
[2017-05-13] MEDS: predniSONE 10 MG TAB PO SCH (08:30)
[2017-05-13] MEDS: SPIRONOLACTONE 25 MG TAB PO SCH (08:30)
[2017-05-13] MEDS: PENTOXIFYLLINE 400 MG CONTROLLED RELEASE TAB PO SCH ×2 (08:31→20:28)
[2017-05-13] MEDS: THIAMINE HCL 100 MG TAB PO SCH (08:31)
[2017-05-13] MEDS: NYSTATIN 100,000 UNIT/GM CREAM 15 GM TOPICAL SCH ×2 (08:33→20:29)
[2017-05-13 08:47] LABS: METAMYELOCYTES 1 % (0-1); NEUTROPHIL # MANUAL DIFF 13.3 TH/MM3 (1.8-7.7); POLYS (SEG NEUTROPHILS) 84 % (16-70); TARGET CELLS 2+ (NORMAL); WBC DIFF SAMPLE 100
[2017-05-13 08:48] LABS: PLATELET ESTIMATE SMEAR LOW (NORMAL); PLATELET MORPHOLOGY NORMAL (NORMAL); SCAN/DIFF FINAL DIFF MANUAL
[2017-05-13 10:19] LABS: APTT (PATIENT) 38.7 SEC (24.3-30.1); INTERNATIONAL NORMALIZED RATIO 1.8 RATIO
[2017-05-13 20:21] VITALS: BP 100/62; PULSE 66; RESP 16; TEMP 98.6; O2SAT 98
[2017-05-13] MEDS: MIRTAZAPINE 15 MG TAB PO SCH (20:28)
--- NOTE | 2017-05-14 07:57 | HHI.PR ---
Subjective Remarks Patient seen and examined today for follow-up on alcohol liver failure, confusion. Patient still confused. No significant change in clinical status. Discussed with family and Dr. Arevalo (friend of the family, at the request of the family) patient clinical condition. Dr. Arevalo and myself did discuss with lock tender chief operator lesions current condition. Recommended reconsultation for reevaluation. Obtain outside records from [facility] for similar hospitalization Objective Vitals Vital Signs Date Time Temp Pulse Resp B/P (MAP) Pulse Ox O2 Delivery O2 Flow Rate FiO2 05/13/17 20:21 98.6 66 16 100/62 (75) 98 05/13/17 08:00 97.6 62 20 108/74 (85) 100 I/O 05/13/17 05/13/17 05/13/17 05/14/17 05/14/17 05/14/17 07:00 15:00 23:00 07:00 15:00 23:00 Intake Total 1075 ml 221 ml Output Total 350 ml 615 ml Balance -350 ml 460 ml 221 ml Intake Oral 1075 ml 221 ml Output Urine Total 350 ml 615 ml # Voids 2 2 # Bowel Movements 2 2 Result Diagram: 05/13/17 0650 05/13/17 0650 Objective Remarks GENERAL: Well-developed, well-nourished, in no acute distress. alert and orientated to person, city, state, year HEENT: Head is normocephalic without any lesions or masses noted. Facial features are symmetric. Eyes: Extraocular muscles are intact. Conjunctivae sclerae are icteric, NECK: Supple without any masses. Trachea midline no deviation. No JVD, CARDIAC: Regular rhythm, regular rate. S1/S2 are heard. No murmurs gallops or rubs. LUNGS: Clear to auscultation bilaterally. No wheeze, rhonchi or rales. No use of accessory muscles on inspiration or expiration. ABDOMEN: Soft, nontender. Nondistended. Bowel sounds heard in all 4 quadrants. No organomegaly or masses. Negative rebound, negative guarding EXTREMITIES: No edema, pulses are equal bilaterally. No cyanosis or clubbing NEUROLOGY: Mood and affect appear appropriate. Cranial nerves II through XII grossly intact. Moving all extremities, speech is clear Urinary Catheter: No Vascular Central Line Catheter: No A/P Assessment and Plan Alcoholic liver disease/acute liver failure with acute alcoholic hepatitis, severe hyperbilirubinemia, coagulopathy, hepatic encephalopathy, alcohol- related cognitive impairment/dementia, thrombocytopenia. Elevated liver enzymes, continue monitor GI consulted and made recommendations, reconsult her lock tender chief operator for further recommendations Continue Corgard with hold parameters Continue Pentoxifylline. Continue Prednisone x 4 weeks(05/26/17). Taper 1 week out. Continue Spironolactone 25 mg daily Generalized weakness/Falls: status post fall at home and in hospital. Secondary to deconditioning from alcoholism. Workup does not indicate any acute abnormality Fall precautions/bed alarm Continue physical therapy Physical therapy indicates that patient will require wheeled walker and physical therapy at rehabilitation facility Pre-renal azotemia: Stable. Could have been secondary to diuretic use Continue monitor Hyponatremia/hypernatremia, Likely secondary to cirrhosis Continue monitor and address as needed Leukocytosis, stable Secondary to steroid use No signs of infection, patient afebrile Depression with decreased appetite Continue Remeron, patient continues to have vivid dreams may need to consider another medication DVT prophylaxis Sequential compression devices, unable to do chemoprophylaxis due to low platelets. Discharge Planning Discharge planning per case management Adama Koch May 14, 2017 07:57
[2017-05-14 08:00] VITALS: BP 112/81; PULSE 65; RESP 18; TEMP 95.9; O2SAT 100
[2017-05-14] MEDS: NADOLOL 20 MG TAB PO SCH (08:06)
[2017-05-14] MEDS: SPIRONOLACTONE 25 MG TAB PO SCH (08:07)
[2017-05-14] MEDS: THIAMINE HCL 100 MG TAB PO SCH (08:07)
[2017-05-14] MEDS: PENTOXIFYLLINE 400 MG CONTROLLED RELEASE TAB PO SCH ×2 (08:08→20:55)
[2017-05-14] MEDS: POTASSIUM CHLORIDE 20 MEQ CONTROLLED RELEASE TAB PO SCH (08:08)
[2017-05-14] MEDS: NYSTATIN 100,000 UNIT/GM CREAM 15 GM TOPICAL SCH ×2 (08:09→20:57)
[2017-05-14] MEDS: predniSONE 10 MG TAB PO SCH (08:09)
--- NOTE | 2017-05-14 15:54 | HHI.GIFU ---
Subjective Remarks GI has been reconsulted per family request for re evaluation of patient for liver disease. Spoke to Kathy Craft (patient's mother, phone number [phone]). She reports that she does not think that her son has been drinking heavily recently. However , she does state that he does have a history of "chronic" alcohol use, as well as a history of cocaine use. She states he has drank liquor heavily in the past. She states that 3 weeks before he was admitted to the hospital, patient started becoming more depressed and not visiting her as often. He apparently had a difficult year and has not been able to keep a job. She states she went to his house and saw beer cans that were half empty shortly before he was admitted. She also states that as a he had jaundice and had to have a blood transfusion. She reports that her son has told her that he has had hepatitis (2013). (Nery Santos) Objective Vitals I&O Vital Signs Date Time Temp Pulse Resp B/P (MAP) Pulse Ox O2 Delivery O2 Flow Rate FiO2 05/14/17 08:00 95.9 65 18 112/81 (91) 100 05/13/17 20:21 98.6 66 16 100/62 (75) 98 I/O 05/13/17 05/13/17 05/13/17 05/14/17 05/14/17 05/14/17 07:00 15:00 23:00 07:00 15:00 23:00 Intake Total 1075 ml 221 ml Output Total 350 ml 615 ml Balance -350 ml 460 ml 221 ml Intake Oral 1075 ml 221 ml Output Urine Total 350 ml 615 ml # Voids 2 2 # Bowel Movements 2 2 Laboratory Date/Time Source Procedure Growth Status 04/21/17 19:35 Blood Peripheral Aerobic Blood Culture - Final NO GROWTH IN 5 DAYS Complete 04/21/17 19:35 Blood Peripheral Anaerobic Blood Culture - Final NO GROWTH IN 5 DAYS Complete 04/21/17 21:55 Urine Catheterized Urine Urine Culture - Final 50-100,000 CFU/ML MIXED ROZ... Complete Imaging Last Impressions Head CT 05/06/17 0000 Signed Impressions: Service Date/Time: Saturday, May 06, 2017 09:36 - CONCLUSION: No acute intracranial abnormality is identified. Bear Coffey MD Chest X-Ray 04/21/171913 Signed Impressions: Service Date/Time: Friday, April 21, 2017 20:09 - CONCLUSION: No acute disease. Mich Dozier MD Abdomen/Pelvis CT 04/21/171913 Signed Impressions: Service Date/Time: Friday, April 21, 2017 21:33 - CONCLUSION: 1. Hepatomegaly with diffuse severe hypodensity characteristic of steatosis. 2. No evidence of biliary obstructive disease. 3. 10 mm left renal cyst. 4. Otherwise unremarkable exam. Mich Dozier MD Physical Exam HEENT: Normocephalic; atraumatic; + scleral icterus NECK: Neck is supple. CHEST: CTA CARDIAC: RRR with no murmur gallop or rubs. ABDOMEN: Soft, nondistended, nontender; bowel sounds are present EXTREMITIES: No edema. SKIN: + jaundice TIPPLE GREASER: Lethargic. Disoriented. (Nery Santos) Assessment and Plan Plan ASSESSMENT: - Severe alcohol liver disease, with possible alcoholic hepatitis and alcohol withdrawal syndrome. Lethargic and disoriented. No abdominal pain. Hepatitis panel negative. Labs with no major change (05/13)--T. Bili 21.6, AST 350, ALT 295, Alk Phos 309, Ammonia 17, total protein 6.2, Albumin 1.2. CT Abdomen/Pelvis 04/21/17--1. Hepatomegaly with diffuse severe hypodensity characteristic of steatosis 2. No evidence of biliary obstructive disease. 3. 10 mm left renal cyst. 4. Otherwise unremarkable exam. PLAN: - Will review outside records from [facility] once they are obtained - ETOH discontinuation - JULIA - Monitor labs - Continue Prednisone - Continue Pentoxifylline - Supportive care - Further recommendations to follow based on results of above Patient seen and examined by Dr. Rizvi and myself and this note is written on his behalf (Nery Santos) Plan Patient was seen and examined, agree with above-noted, patient has most likely alcohol liver disease continue to have elevated liver function tests, patient alert and oriented he is asking to go home with his dad, I confirmed with him that he has been drinking 15-18 beers for a long time, We are going to obtain lab work to rule out other Ilya such as Harinder disease or autoimmune hepatitis or iron overload, meanwhile we'll continue current care with steroid and pentoxifylline (Nadine Lucas MD) Nery Santos May 14, 2017 15:54 Nadine Lucas MD May 14, 2017 18:45
[2017-05-14 16:00] VITALS: BP 107/66; PULSE 62; RESP 18; TEMP 97.4; O2SAT 100
[2017-05-14 20:00] VITALS: BP 109/69; PULSE 58; RESP 19; TEMP 97; O2SAT 100
[2017-05-14] MEDS: MIRTAZAPINE 15 MG TAB PO SCH (20:55)
[2017-05-15 00:13] LABS: FERRITIN 9672 NG/ML (26-388)
[2017-05-15 01:57] LABS: TRANSFERRIN IRON PROFILE 56 MG/DL (200-360)
[2017-05-15 05:42] LABS: AUTOMATED NEUTROPHIL # 14.6 TH/MM3 (1.8-7.7); BASOPHIL % 0.1 % (0.0-2.0); EOSINOPHIL # 0.1 TH/MM3 (0-0.4); EOSINOPHIL % 0.4 % (0.0-4.0); HEMATOCRIT 34.7 % (39.0-51.0); LYMPH % 14.3 % (9.0-44.0); LYMPHOCYTE # 2.6 TH/MM3 (1.0-4.8); MEAN CELL VOLUME 109.5 FL (80.0-100.0); MEAN CORPUSCULAR HEMOGLOBIN 38.5 PG (27.0-34.0); MEAN CORPUSCULAR HGB CONC 35.1 % (32.0-36.0); MONO % 3.3 % (0.0-8.0); NEUT % 81.9 % (16.0-70.0); PLATELET COUNT 77 TH/MM3 (150-450); RED BLOOD COUNT 3.17 MIL/MM3 (4.50-5.90); RED CELL DISTRIBUTION WIDTH 18.6 % (11.6-17.2); WHITE BLOOD COUNT 17.9 TH/MM3 (4.0-11.0)
[2017-05-15 05:45] LABS: HEMO FLAGS AUTO DIFF
[2017-05-15 05:47] LABS: CHLORIDE 112 MEQ/L (98-107); POTASSIUM 3.8 MEQ/L (3.5-5.1); SODIUM (NA) 142 MEQ/L (136-145)
[2017-05-15 05:54] LABS: ANION GAP 9 MEQ/L (5-15); BICARBONATE 21.1 MEQ/L (21.0-32.0); BLOOD UREA NITROGEN 62 MG/DL (7-18)
[2017-05-15 05:56] LABS: ALT (GPT) 344 U/L (12-78); AST (GOT) 384 U/L (15-37)
[2017-05-15 05:57] LABS: TOTAL BILIRUBIN ADULT 21.7 MG/DL (0.2-1.0)
[2017-05-15 05:58] LABS: ALKALINE PHOSPHATASE 340 U/L (45-117); GLOMERULAR FILTRATION RATE 58 ML/MIN (>89)
[2017-05-15 07:00] LABS: SCAN/DIFF AUTO DIFF CONFIRMED
[2017-05-15 08:00] VITALS: BP 81/59; PULSE 60; RESP 20; TEMP 97; O2SAT 100
[2017-05-15] MEDS: THIAMINE HCL 100 MG TAB PO SCH (08:15)
[2017-05-15] MEDS: predniSONE 10 MG TAB PO SCH (08:15)
[2017-05-15] MEDS: NADOLOL 20 MG TAB PO SCH (08:15)
[2017-05-15] MEDS: POTASSIUM CHLORIDE 20 MEQ CONTROLLED RELEASE TAB PO SCH (08:15)
[2017-05-15] MEDS: SPIRONOLACTONE 25 MG TAB PO SCH (08:15)
[2017-05-15] MEDS: PENTOXIFYLLINE 400 MG CONTROLLED RELEASE TAB PO SCH ×2 (08:15→20:29)
[2017-05-15] MEDS: NYSTATIN 100,000 UNIT/GM CREAM 15 GM TOPICAL SCH ×2 (08:17→20:31)
--- NOTE | 2017-05-15 08:55 | HHI.PR ---
Subjective Remarks Follow-up for alcoholic liver failure. Patient still confused. He also asks if his father Marek Craft is here. He denies any fevers or chills, regular cough, or shortness of breath. Admits to mild pain right upper quadrant which is chronic but denies any increasing abdominal pain, vomiting, or diarrhea. Objective Vitals Vital Signs Date Time Temp Pulse Resp B/P (MAP) Pulse Ox O2 Delivery O2 Flow Rate FiO2 05/15/17 08:00 97.0 60 20 81/59 (66) 100 05/14/17 20:00 97.0 58 19 109/69 (82) 100 05/14/17 16:00 97.4 62 18 107/66 (80) 100 I/O 05/14/17 05/14/17 05/14/17 05/15/17 05/15/17 05/15/17 07:00 15:00 23:00 07:00 15:00 23:00 Intake Total 780 ml 240 ml Output Total 400 ml 700 ml 250 ml Balance 380 ml -460 ml -250 ml Intake Oral 780 ml 240 ml Output Urine Total 400 ml 700 ml 250 ml # Voids 2 2 # Bowel Movements 2 2 2 Result Diagram: 05/15/175 05/15/17 0445 Objective Remarks GENERAL: Well-developed patient in no apparent distress. SKIN: Significantly jaundiced. EYES: Scleral icterus. ENT: Tongue moist but yellow. CARDIOVASCULAR: Faint. Regular rate and rhythm. RESPIRATORY: No accessory muscle use. Cannot auscultate breath sounds laterally but is clear to auscultation over B/L anterior lung dahl. GASTROINTESTINAL: Normoactive bowel sounds. Abdomen is distended. Abdomen soft, non-tender. MUSCULOSKELETAL: No lower extremity edema bilaterally. NEUROLOGICAL: Awake and alert. Disoriented. Thinks he is in [place] at a [employer]. When I ask the month repeatedly he states the 28th. Normal speech. PSYCHIATRIC: Normal affect. Gets slightly irritated upon orientation questioning. Urinary Catheter: No Vascular Central Line Catheter: No A/P Problem List: (1) Acute alcoholic hepatitis ICD Code: K70.10 - Alcoholic hepatitis without ascites (2) Fall ICD Code: W19.XXXA - Unspecified fall, initial encounter Status: Acute (3) Hyperbilirubinemia ICD Code: E80.6 - Other disorders of bilirubin metabolism Status: Acute (4) Candidiasis of scrotum ICD Code: B37.49 - Other urogenital candidiasis (5) Electrolyte disturbance ICD Code: E87.8 - Other disorders of electrolyte and fluid balance, not elsewhere classified (6) Liver function failure ICD Code: K72.90 - Hepatic failure, unspecified without coma (7) Hyperammonemia ICD Code: E72.20 - Disorder of urea cycle metabolism, unspecified Status: Acute (8) Alcohol withdrawal ICD Code: F10.239 - Alcohol dependence with withdrawal, unspecified Status: Acute (9) Generalized weakness ICD Code: R53.1 - Weakness (10) Thrombocytopenia ICD Code: D69.6 - Thrombocytopenia, unspecified Status: Acute (11) Hyponatremia ICD Code: E87.1 - Hypo-osmolality and hyponatremia Status: Acute (12) Coagulopathy ICD Code: D68.9 - Coagulation defect, unspecified Status: Acute (13) Transaminitis ICD Code: R74.0 - Nonspecific elevation of levels of transaminase and lactic acid dehydrogenase [LDH] Status: Acute Assessment and Plan Alcoholic liver disease/acute liver failure with acute alcoholic hepatitis and severe hyperbilirubinemia, coagulopathy, thrombocytopenia, hepatic encephalopathy, and alcohol-related cognitive impairment/dementia: -Continue Corgard -Continue Pentoxifylline. -Continue Prednisone x 4 weeks. Taper 1 week out. -Continue Spironolactone decreased to 12.5 mg daily. -GI was reconsulted per family request and re-evaluated patient on 05/14, ordering further lab workup to rule out other etiologies. Awaiting outside records from [facility]. -05/15: Platelets stable from 05/13. AST, ALT, and alkaline phosphatase increased from prior labs on 05/13, but Tbili stable. Still confused. Ammonia level pending. Leukocytosis: Worse. -05/15: WBC increased to 17.9 from 15.7 on 05/13. Still no evidence of infection. Likely due to steroids. Will recheck CBC w/ diff on 05/17. Hypernatremia & hyperchloremia: Hypernatremia resolved. Hyperchloremia improving. Likely due to diuretic use. -Monitor -05/15: Cl decreased to 112 Pre-renal azotemia: Worse. Likely due to diuretic use. -05/15: BUN increased to 62. Discussed with Dr. Flores. Will decrease Spironolactone to 12.5 mg daily starting tomorrow. Repeat BP this morning stable so will avoid fluid bolus at this time as no clear indication of dehydration. -Repeat BMP on 05/17 -Continue to monitor. Generalized weakness/Falls: status post fall at home and in hospital. Likely deconditioning secondary to alcoholism. CT brain with no acute abnormality. -Fall precautions/bed alarm -Continue PT -Pending rehab placement. Severe hyponatremia: Resolved. Secondary to cirrhosis. Alcohol withdrawal syndrome: Resolved Candidiasis and edema of scrotum: Resolved. -Continue nystatin cream and elevation. Continue Remeron for suspected depression causing decreased appetite. DVT prophylaxis with SCDs; unable to do chemoprophylaxis due to low platelets. Discharge Planning Per speech therapy, patient will need supervision after discharge secondary to cognitive deficits. 05/13/17: CM spoke with family and family friend, physician, Dr. Arevalo. CM informed them that while patient lacks capacity to make medical decisions, those decisions would fall to the parents. CM continues to follow for placement in SNF. 05/14/17: Adama Koch PA-C spoke with family, and Dr. Arevalo regarding patient's clinical condition. Problem Qualifiers (1) Alcohol withdrawal: Qualified Codes: F10.230 - Alcohol dependence with withdrawal, uncomplicated Marcela Mora May 15, 2017 08:55
[2017-05-15 09:10] VITALS: BP 110/60
[2017-05-15] MEDS ORDERED: PILL SPLITTER OTHER PRN (09:30)
[2017-05-15 11:00] VITALS: O2SAT 94
--- NOTE | 2017-05-15 15:31 | HHI.GIFU ---
Subjective Remarks Family at bedside. Patient states he is doing okay. No new complaints. Denies abdominal pain. Oriented to person, place, and situation. (Nery Santos) Objective Vitals I&O Vital Signs Date Time Temp Pulse Resp B/P (MAP) Pulse Ox O2 Delivery O2 Flow Rate FiO2 05/15/17 11:00 94 21 05/15/17 09:10 110/60 (77) 05/15/17 08:00 97.0 60 20 81/59 (66) 100 05/14/17 20:00 97.0 58 19 109/69 (82) 100 05/14/17 16:00 97.4 62 18 107/66 (80) 100 I/O 05/14/17 05/14/17 05/14/17 05/15/17 05/15/17 05/15/17 07:00 15:00 23:00 07:00 15:00 23:00 Intake Total 780 ml 240 ml 720 ml Output Total 400 ml 700 ml 250 ml Balance 380 ml -460 ml 470 ml Intake Oral 780 ml 240 ml 720 ml Output Urine Total 400 ml 700 ml 250 ml # Voids 2 2 4 # Bowel Movements 2 2 2 3 Laboratory Laboratory Tests Test 05/14/17 21:00 05/15/17 04:45 Iron Level 83 Total Iron Binding Capacity 78 Percent Iron Saturation Ferritin 9672 Tumor Marker Alpha Fetoprotein 2.2 White Blood Count 17.9 Red Blood Count 3.17 Hemoglobin 12.2 Hematocrit 34.7 Mean Corpuscular Volume 109.5 Mean Corpuscular Hemoglobin 38.5 Mean Corpuscular Hemoglobin Concent 35.1 Red Cell Distribution Width 18.6 Platelet Count 77 Mean Platelet Volume 12.5 Neutrophils (%) (Auto) 81.9 Lymphocytes (%) (Auto) 14.3 Monocytes (%) (Auto) 3.3 Eosinophils (%) (Auto) 0.4 Basophils (%) (Auto) 0.1 Neutrophils # (Auto) 14.6 Lymphocytes # (Auto) 2.6 Monocytes # (Auto) 0.6 Eosinophils # (Auto) 0.1 Basophils # (Auto) 0.0 CBC Comment AUTO DIFF Differential Comment AUTO DIFF CONFIRMED Blood Urea Nitrogen 62 Creatinine 1.30 Random Glucose 111 Total Protein 6.1 Albumin 1.2 Calcium Level 8.7 Alkaline Phosphatase 340 Aspartate Amino Transf (AST/SGOT) 384 Alanine Aminotransferase (ALT/SGPT) 344 Total Bilirubin 21.7 Sodium Level 142 Potassium Level 3.8 Chloride Level 112 Carbon Dioxide Level 21.1 Anion Gap 9 Estimat Glomerular Filtration Rate 58 Ammonia 12 Date/Time Source Procedure Growth Status 04/21/17 19:35 Blood Peripheral Aerobic Blood Culture - Final NO GROWTH IN 5 DAYS Complete 04/21/17 19:35 Blood Peripheral Anaerobic Blood Culture - Final NO GROWTH IN 5 DAYS Complete 04/21/17 21:55 Urine Catheterized Urine Urine Culture - Final 50-100,000 CFU/ML MIXED ROZ... Complete Imaging Last Impressions Head CT 05/06/17 0000 Signed Impressions: Service Date/Time: Saturday, May 06, 2017 09:36 - CONCLUSION: No acute intracranial abnormality is identified. Bear Coffey MD Chest X-Ray 04/21/171913 Signed Impressions: Service Date/Time: Friday, April 21, 2017 20:09 - CONCLUSION: No acute disease. Mich Dozier MD Abdomen/Pelvis CT 04/21/171913 Signed Impressions: Service Date/Time: Friday, April 21, 2017 21:33 - CONCLUSION: 1. Hepatomegaly with diffuse severe hypodensity characteristic of steatosis. 2. No evidence of biliary obstructive disease. 3. 10 mm left renal cyst. 4. Otherwise unremarkable exam. Mich Dozier MD Physical Exam HEENT: Normocephalic; atraumatic; + scleral icterus NECK: Neck is supple. CHEST: CTA CARDIAC: RRR with no murmur gallop or rubs. ABDOMEN: Soft, nondistended, nontender; bowel sounds are present EXTREMITIES: No edema. SKIN: + jaundice ONCOLOGY PHYSICIAN: Alert and awake today. [place] to person, place, and situation. (Nery Santos) Assessment and Plan Plan Plan ASSESSMENT: - Severe alcohol liver disease, with possible alcoholic hepatitis and alcohol withdrawal syndrome. No abdominal pain. Hepatitis panel negative. Labs with no major change (05/13)--T. Bili 21.6, AST 350, ALT 295, Alk Phos 309, Ammonia 17, total protein 6.2, Albumin 1.2. CT Abdomen/Pelvis 04/21/17--1. Hepatomegaly with diffuse severe hypodensity characteristic of steatosis 2. No evidence of biliary obstructive disease. 3. 10 mm left renal cyst. 4. Otherwise unremarkable exam. 05/15/17--Patient is more alert and awake today. Oriented to person, place, and situation. Denies abdominal pain. Patient has confirmed that he has history of drinking 15-18 beers daily for long period of time. AST 384, ALT 344, ALK PHOS 340. Ammonia 12. Total protein 6.1, Albumin 1.2. Ceruloplasmin pending. Tumor Marker AFP normal. Hemochromatosis pending. RAYNE, Mitochondria M2 Ab, Anti-Smooth Muscle Ab, Liver/Kid Microsomes Ab pending. PLAN: - Await rest of liver workup lab results - Will review outside records from [facility] once they are obtained - ETOH discontinuation - JULIA - Monitor labs - Continue Prednisone - Continue Pentoxifylline - Supportive care - Further recommendations to follow based on results of above Patient seen and examined by Dr. Rizvi and myself and this note is written on his behalf (Nery Santos) Plan patient was seen and examined, agree with above note, patient has high iron saturation, could be reaction to alcohol but also it could be hemochromatosis had a discussion with the family and his mother told me that she had some issue when she was diagnosed with breast cancer in the past and she was told that she might have iron overload. We will obtain gene for evaluation for hemochromatosis also patient would like to go to the [facility] in [facility] for further management and possible evaluation for transplant we will ask case management to to help with that (Nadine Lucas MD) Nery Santos May 15, 2017 15:31 Nadine Lucas MD May 15, 2017 17:50
[2017-05-15] MEDS: MIRTAZAPINE 15 MG TAB PO SCH (20:29)
[2017-05-16] VITALS: BP 117/81; PULSE 58; RESP 20; TEMP 97; O2SAT 100
[2017-05-16 08:00] VITALS: BP 106/78; PULSE 60; RESP 21; TEMP 96.9; O2SAT 99
[2017-05-16] MEDS: predniSONE 10 MG TAB PO SCH (08:30)
[2017-05-16] MEDS: NADOLOL 20 MG TAB PO SCH (08:30)
[2017-05-16] MEDS: SPIRONOLACTONE 25 MG TAB PO SCH (08:30)
[2017-05-16] MEDS: PENTOXIFYLLINE 400 MG CONTROLLED RELEASE TAB PO SCH ×2 (08:30→20:33)
[2017-05-16] MEDS: POTASSIUM CHLORIDE 20 MEQ CONTROLLED RELEASE TAB PO SCH (08:31)
[2017-05-16] MEDS: NYSTATIN 100,000 UNIT/GM CREAM 15 GM TOPICAL SCH ×2 (08:31→20:34)
[2017-05-16] MEDS: THIAMINE HCL 100 MG TAB PO SCH (08:31)
--- NOTE | 2017-05-16 09:15 | HHI.PR ---
Subjective Remarks Follow-up for alcoholic liver failure. When I entered the room the patient asked to speak to who was in charge of this "dog and pony show". When I asked him if he would like to speak to the charge nurse he said yes. When I asked him what it was in regards to he stated that he would like to know where his phone is. I pointed out that it was right next to him and handed it to him. He asked me to leave so he could make a call and when I asked if I could examine him first he shouted "No! Who are you? The doctor?". When I told him I was the PA, he replied, "You're nobody. You're just a playmate". I felt threatened and left the room. Objective Vitals Vital Signs Date Time Temp Pulse Resp B/P (MAP) Pulse Ox O2 Delivery O2 Flow Rate FiO2 05/16/17 00:00 97.0 58 20 117/81 (93) 100 05/15/17 11:00 94 21 05/15/17 09:10 110/60 (77) I/O 05/15/17 05/15/17 05/15/17 05/16/17 05/16/17 05/16/17 07:00 15:00 23:00 07:00 15:00 23:00 Intake Total 240 ml 720 ml 50 ml Output Total 700 ml 250 ml 300 ml Balance -460 ml 470 ml -250 ml Intake Oral 240 ml 720 ml 50 ml Output Urine Total 700 ml 250 ml 300 ml # Voids 2 4 # Bowel Movements 2 3 1 Result Diagram: 05/15/17 0445 05/15/17 0445 Objective Remarks GENERAL: Well-developed patient in no apparent distress. SKIN: Significantly jaundiced. EYES: Scleral icterus. RESPIRATORY: RR normal. NEUROLOGICAL: Awake and alert. Normal speech. PSYCHIATRIC: Hostile mood, shouting at me. Urinary Catheter: No Vascular Central Line Catheter: No A/P Problem List: (1) Acute alcoholic hepatitis ICD Code: K70.10 - Alcoholic hepatitis without ascites (2) Fall ICD Code: W19.XXXA - Unspecified fall, initial encounter Status: Acute (3) Hyperbilirubinemia ICD Code: E80.6 - Other disorders of bilirubin metabolism Status: Acute (4) Candidiasis of scrotum ICD Code: B37.49 - Other urogenital candidiasis (5) Electrolyte disturbance ICD Code: E87.8 - Other disorders of electrolyte and fluid balance, not elsewhere classified (6) Liver function failure ICD Code: K72.90 - Hepatic failure, unspecified without coma (7) Hyperammonemia ICD Code: E72.20 - Disorder of urea cycle metabolism, unspecified Status: Acute (8) Alcohol withdrawal ICD Code: F10.239 - Alcohol dependence with withdrawal, unspecified Status: Acute (9) Generalized weakness ICD Code: R53.1 - Weakness (10) Thrombocytopenia ICD Code: D69.6 - Thrombocytopenia, unspecified Status: Acute (11) Hyponatremia ICD Code: E87.1 - Hypo-osmolality and hyponatremia Status: Acute (12) Coagulopathy ICD Code: D68.9 - Coagulation defect, unspecified Status: Acute (13) Transaminitis ICD Code: R74.0 - Nonspecific elevation of levels of transaminase and lactic acid dehydrogenase [LDH] Status: Acute Assessment and Plan 05/16: Patient uncooperative today, did not allow exam. Agitated likely due to cognitive impairment. Labs already ordered for tomorrow morning. Monitor clinically. Alcoholic liver disease/acute liver failure with acute alcoholic hepatitis and severe hyperbilirubinemia, coagulopathy, thrombocytopenia, hepatic encephalopathy, and alcohol-related cognitive impairment/dementia: -Continue Corgard -Continue Pentoxifylline. -Continue Prednisone x 4 weeks. Taper 1 week out. -Continue Spironolactone decreased to 12.5 mg daily. -GI was reconsulted per family request and re-evaluated patient on 05/14, ordering further lab workup to rule out other etiologies. Awaiting outside records from [facility]. -05/15: Platelets stable from 05/13. AST, ALT, and alkaline phosphatase increased from prior labs on 05/13, but Tbili stable. Still confused. Ammonia level normal. Leukocytosis: Worse. -05/15: WBC increased to 17.9 from 15.7 on 05/13. Still no evidence of infection. Likely due to steroids. Will recheck CBC w/ diff on 05/17. Hypernatremia & hyperchloremia: Hypernatremia resolved. Hyperchloremia improving. Likely due to diuretic use. -Monitor -05/15: Cl decreased to 112 Pre-renal azotemia: Worse. Likely due to diuretic use. -05/15: BUN increased to 62. Discussed with Dr. Flores. Will decrease Spironolactone to 12.5 mg daily starting tomorrow. Repeat BP this morning stable so will avoid fluid bolus at this time as no clear indication of dehydration. -Repeat BMP on 05/17 -Continue to monitor. Generalized weakness/Falls: status post fall at home and in hospital. Likely deconditioning secondary to alcoholism. CT brain with no acute abnormality. -Fall precautions/bed alarm -Continue PT -Pending rehab placement. Severe hyponatremia: Resolved. Secondary to cirrhosis. Alcohol withdrawal syndrome: Resolved Candidiasis and edema of scrotum: Resolved. -Continue nystatin cream and elevation. Continue Remeron for suspected depression causing decreased appetite. DVT prophylaxis with SCDs; unable to do chemoprophylaxis due to low platelets. Discharge Planning Per speech therapy, patient will need supervision after discharge secondary to cognitive deficits. 05/13/17: CM spoke with family and family friend, physician, Dr. Arevalo. CM informed them that while patient lacks capacity to make medical decisions, those decisions would fall to the parents. CM continues to follow for placement in SNF. 05/14/17: Adama Kcoh PA-C spoke with family, and Dr. Arevalo regarding patient's clinical condition. Problem Qualifiers (1) Alcohol withdrawal: Qualified Codes: F10.230 - Alcohol dependence with withdrawal, uncomplicated Marcela Mora May 16, 2017 09:15
[2017-05-16 20:00] VITALS: BP 95/70; PULSE 62; RESP 20; TEMP 96.8; O2SAT 100
[2017-05-16] MEDS: MIRTAZAPINE 15 MG TAB PO SCH (20:33)
[2017-05-17 05:26] LABS: AUTOMATED NEUTROPHIL # 16.1 TH/MM3 (1.8-7.7); BASOPHIL % 0.1 % (0.0-2.0); EOSINOPHIL # 0.1 TH/MM3 (0-0.4); EOSINOPHIL % 0.6 % (0.0-4.0); HEMATOCRIT 33.5 % (39.0-51.0); LYMPH % 12.6 % (9.0-44.0); LYMPHOCYTE # 2.4 TH/MM3 (1.0-4.8); MEAN CELL VOLUME 109.2 FL (80.0-100.0); MEAN CORPUSCULAR HEMOGLOBIN 38.6 PG (27.0-34.0); MEAN CORPUSCULAR HGB CONC 35.4 % (32.0-36.0); MONO % 2.9 % (0.0-8.0); NEUT % 83.8 % (16.0-70.0); PLATELET COUNT 73 TH/MM3 (150-450); RED BLOOD COUNT 3.07 MIL/MM3 (4.50-5.90); RED CELL DISTRIBUTION WIDTH 18.9 % (11.6-17.2); WHITE BLOOD COUNT 19.2 TH/MM3 (4.0-11.0)
[2017-05-17 05:30] LABS: HEMO FLAGS AUTO DIFF
[2017-05-17 05:34] LABS: POTASSIUM 3.9 MEQ/L (3.5-5.1)
[2017-05-17 05:38] LABS: BICARBONATE 21.2 MEQ/L (21.0-32.0)
[2017-05-17 05:47] LABS: PLATELET ESTIMATE SMEAR LOW (NORMAL); PLATELET MORPHOLOGY ENLARGED (NORMAL); SCAN/DIFF AUTO DIFF CONFIRMED
[2017-05-17 08:00] VITALS: BP 91/62; PULSE 59; RESP 19; TEMP 96.1; O2SAT 100
[2017-05-17] MEDS: PENTOXIFYLLINE 400 MG CONTROLLED RELEASE TAB PO SCH ×2 (08:01→20:56)
[2017-05-17] MEDS: predniSONE 10 MG TAB PO SCH (08:01)
[2017-05-17] MEDS: POTASSIUM CHLORIDE 20 MEQ CONTROLLED RELEASE TAB PO SCH (08:01)
[2017-05-17] MEDS: THIAMINE HCL 100 MG TAB PO SCH (08:01)
[2017-05-17] MEDS: SPIRONOLACTONE 25 MG TAB PO SCH (08:01)
[2017-05-17] MEDS: NYSTATIN 100,000 UNIT/GM CREAM 15 GM TOPICAL SCH ×2 (08:02→20:57)
[2017-05-17] MEDS: NADOLOL 20 MG TAB PO SCH (08:02)
--- NOTE | 2017-05-17 09:03 | HHI.PR ---
Subjective Remarks Follow up for alcoholic liver failure. Patient is still confused. He asks me what I meant when I said "TD was coming". I told him I did not say that. Patient denies any fevers or chills, chest pain, cough, shortness of breath, abdominal pain, vomiting, or diarrhea. Objective Vitals Vital Signs Date Time Temp Pulse Resp B/P (MAP) Pulse Ox O2 Delivery O2 Flow Rate FiO2 05/17/17 08:00 96.1 59 19 91/62 (72) 100 05/16/17 20:00 96.8 62 20 95/70 (78) 100 I/O 05/16/17 05/16/17 05/16/17 05/17/17 05/17/17 05/17/17 07:00 15:00 23:00 07:00 15:00 23:00 Intake Total 50 ml Output Total 300 ml 425 ml Balance -250 ml -425 ml Intake Oral 50 ml Output Urine Total 300 ml 425 ml # Voids 2 # Bowel Movements 1 0 Result Diagram: 05/17/1744905/17/17449 Objective Remarks GENERAL: Well-developed patient in no apparent distress about to eat breakfast. SKIN: Significantly jaundiced. EYES: Scleral icterus. CARDIOVASCULAR: Regular rate and rhythm. RESPIRATORY: CTAB but breath sounds diminished. GASTROINTESTINAL: Abdomen soft, non-tender, nondistended. MUSCULOSKELETAL: No lower extremity edema bilaterally. NEUROLOGICAL: Awake and alert. Confused. Normal speech. PSYCHIATRIC: Calm today but gets slightly irritated when I have to examine him. Urinary Catheter: No Vascular Central Line Catheter: No A/P Problem List: (1) Acute alcoholic hepatitis ICD Code: K70.10 - Alcoholic hepatitis without ascites (2) Fall ICD Code: W19.XXXA - Unspecified fall, initial encounter Status: Acute (3) Hyperbilirubinemia ICD Code: E80.6 - Other disorders of bilirubin metabolism Status: Acute (4) Candidiasis of scrotum ICD Code: B37.49 - Other urogenital candidiasis (5) Electrolyte disturbance ICD Code: E87.8 - Other disorders of electrolyte and fluid balance, not elsewhere classified (6) Liver function failure ICD Code: K72.90 - Hepatic failure, unspecified without coma (7) Hyperammonemia ICD Code: E72.20 - Disorder of urea cycle metabolism, unspecified Status: Acute (8) Alcohol withdrawal ICD Code: F10.239 - Alcohol dependence with withdrawal, unspecified Status: Acute (9) Generalized weakness ICD Code: R53.1 - Weakness (10) Thrombocytopenia ICD Code: D69.6 - Thrombocytopenia, unspecified Status: Acute (11) Hyponatremia ICD Code: E87.1 - Hypo-osmolality and hyponatremia Status: Acute (12) Coagulopathy ICD Code: D68.9 - Coagulation defect, unspecified Status: Acute (13) Transaminitis ICD Code: R74.0 - Nonspecific elevation of levels of transaminase and lactic acid dehydrogenase [LDH] Status: Acute Assessment and Plan Alcoholic liver disease/acute liver failure with acute alcoholic hepatitis and severe hyperbilirubinemia, coagulopathy, thrombocytopenia, hepatic encephalopathy, and alcohol-related cognitive impairment/dementia: -Continue Corgard -Continue Pentoxifylline. -Continue Prednisone. -Continue Spironolactone. -GI was reconsulted per family request and re-evaluated patient on 05/14, ordering further lab workup to rule out other etiologies. Awaiting outside records from [facility]. -05/17: Platelets stable from 05/15. LFTs pending. Leukocytosis: Worse. -05/17: WBC increased to 19.2 from 17.9 on 05/15. No symptoms of infection. Remains afebrile. Likely due to steroids. Follow. Pre-renal azotemia: Slightly worse. -05/15: BUN 62. Spironolactone decreased to 12.5 mg daily. -05/17: Repeat BMP today with BUN of 64. Cr stable at 1.20. Patient may be dehydrated as he only had 425 mL urine output documented over the past 24 hours and is hypotensive this morning with increased Na and Cl. Discussed with Dr. Craft. 500 mL NS bolus ordered. Monitor intake and output. Hypernatremia & hyperchloremia: Worse. -05/17: Na starting to increase again, 145 today. Cl increased to 116. IVF ordered. -Repeat am BMP. Generalized weakness/Falls: status post fall at home and in hospital. Likely deconditioning secondary to alcoholism. CT brain with no acute abnormality. -Fall precautions/bed alarm -Continue PT -Pending rehab placement. Severe hyponatremia: Resolved. Secondary to cirrhosis. Alcohol withdrawal syndrome: Resolved Candidiasis and edema of scrotum: Resolved. -Continue nystatin cream and elevation. Continue Remeron for suspected depression causing decreased appetite. DVT prophylaxis with SCDs; unable to do chemoprophylaxis due to low platelets. Discharge Planning Per speech therapy, patient will need supervision after discharge secondary to cognitive deficits. 05/13/17: CM spoke with family and family friend, physician, Dr. Arevalo. CM informed them that while patient lacks capacity to make medical decisions, those decisions would fall to the parents. CM continues to follow for placement in SNF. 05/14/17: Adama Koch PA-C spoke with family, and Dr. Arevalo regarding patient's clinical condition. Attending Statement The exam, history, and the medical decision-making described in the above note were completed with the assistance of the mid-level provider. I reviewed and agree with the findings presented. I attest that I had a [id number] encounter with the patient on the same day, and personally performed and documented my assessment and findings in the medical record. I had a 45 minute long discussion with the patients parents regarding options for Hospice and end of life care and updating on current diagnosis and prognosis. Hospice consult pending. Problem Qualifiers (1) Alcohol withdrawal: Qualified Codes: F10.230 - Alcohol dependence with withdrawal, uncomplicated Marcela Mora May 17, 2017 09:03 Rafia Craft MD May 17, 2017 15:26
[2017-05-17] MEDS ORDERED: SODIUM CHLORID 0.9% 500 ML INJ 500 ML IV ONE (10:00)
[2017-05-17 10:20] LABS: TOTAL BILIRUBIN ADULT 21.4 MG/DL (0.2-1.0)
--- NOTE | 2017-05-17 12:05 | HHI.GIFU ---
Subjective Remarks Patient laying in bed fatigued week complaining of being thirsty and wanting to drink somewhat confused Objective Vitals I&O Vital Signs Date Time Temp Pulse Resp B/P (MAP) Pulse Ox O2 Delivery O2 Flow Rate FiO2 05/17/17 08:00 96.1 59 19 91/62 (72) 100 05/16/17 20:00 96.8 62 20 95/70 (78) 100 I/O 05/16/17 05/16/17 05/16/17 05/17/17 05/17/17 05/17/17 07:00 15:00 23:00 07:00 15:00 23:00 Intake Total 50 ml Output Total 300 ml 425 ml Balance -250 ml -425 ml Intake Oral 50 ml Output Urine Total 300 ml 425 ml # Voids 2 # Bowel Movements 1 0 Laboratory Laboratory Tests Test 05/17/17 04:50 White Blood Count 19.2 Red Blood Count 3.07 Hemoglobin 11.9 Hematocrit 33.5 Mean Corpuscular Volume 109.2 Mean Corpuscular Hemoglobin 38.6 Mean Corpuscular Hemoglobin Concent 35.4 Red Cell Distribution Width 18.9 Platelet Count 73 Mean Platelet Volume 12.4 Neutrophils (%) (Auto) 83.8 Lymphocytes (%) (Auto) 12.6 Monocytes (%) (Auto) 2.9 Eosinophils (%) (Auto) 0.6 Basophils (%) (Auto) 0.1 Neutrophils # (Auto) 16.1 Lymphocytes # (Auto) 2.4 Monocytes # (Auto) 0.6 Eosinophils # (Auto) 0.1 Basophils # (Auto) 0.0 CBC Comment AUTO DIFF Differential Comment AUTO DIFF CONFIRMED Platelet Estimate LOW Platelet Morphology Comment ENLARGED Blood Urea Nitrogen 64 Creatinine 1.20 Random Glucose 113 Calcium Level 8.9 Sodium Level 145 Potassium Level 3.9 Chloride Level 116 Carbon Dioxide Level 21.2 Anion Gap 8 Estimat Glomerular Filtration Rate 63 Total Bilirubin 21.4 Direct Bilirubin 17.4 Indirect Bilirubin 4.0 Aspartate Amino Transf (AST/SGOT) 420 Alanine Aminotransferase (ALT/SGPT) 379 Alkaline Phosphatase 377 Total Protein 6.0 Albumin 1.2 Date/Time Source Procedure Growth Status 04/21/17 19:35 Blood Peripheral Aerobic Blood Culture - Final NO GROWTH IN 5 DAYS Complete 04/21/17 19:35 Blood Peripheral Anaerobic Blood Culture - Final NO GROWTH IN 5 DAYS Complete 04/21/17 21:55 Urine Catheterized Urine Urine Culture - Final 50-100,000 CFU/ML MIXED ROZ... Complete Imaging Last Impressions Head CT 05/06/17 0000 Signed Impressions: Service Date/Time: Saturday, May 06, 2017 09:36 - CONCLUSION: No acute intracranial abnormality is identified. Bear Coffey MD Chest X-Ray 04/21/171913 Signed Impressions: Service Date/Time: Friday, April 21, 2017 20:09 - CONCLUSION: No acute disease. Mich Dozier MD Abdomen/Pelvis CT 04/21/171913 Signed Impressions: Service Date/Time: Friday, April 21, 2017 21:33 - CONCLUSION: 1. Hepatomegaly with diffuse severe hypodensity characteristic of steatosis. 2. No evidence of biliary obstructive disease. 3. 10 mm left renal cyst. 4. Otherwise unremarkable exam. Mich Dozier MD Physical Exam HEENT: Normocephalic; atraumatic; + scleral icterus NECK: Neck is supple. CHEST: CTA CARDIAC: RRR with no murmur gallop or rubs. ABDOMEN: Soft, nondistended, nontender; bowel sounds are present EXTREMITIES: No edema. SKIN: + jaundice CARD MOUNTER: Alert and awake today. [place] to person, place, and situation. Assessment and Plan Plan patient was seen and examined, agree with above note, patient has high iron saturation, could be reaction to alcohol but also it could be hemochromatosis had a discussion with the family and his mother told me that she had some issue when she was diagnosed with breast cancer in the past and she was told that she might have iron overload. We will obtain gene for evaluation for hemochromatosis also patient would like to go to the [facility] in [facility] for further management and possible evaluation for transplant we will ask case management to to help with that Acute alcoholic hepatitis At this point I think the prognosis is very poor We will continue with current supportive care and continue with prednisone and pentoxifylline Monitor labs Ge Fischer MD May 17, 2017 12:05
[2017-05-17 13:45] LABS: INTERNATIONAL NORMALIZED RATIO 1.6 RATIO; PROTHROMBIN TIME - PATIENT 18.1 SEC (9.8-11.6)
[2017-05-17 20:00] VITALS: BP 88/58; PULSE 65; RESP 20; TEMP 97.4; O2SAT 100
[2017-05-17] MEDS: MIRTAZAPINE 15 MG TAB PO SCH (20:56)
[2017-05-18 03:52] LABS: MITOCHONDRIAL ABS LESS THAN 20.0 U (<=20.0)
[2017-05-18 06:23] LABS: HEMATOCRIT 33.8 % (39.0-51.0); MEAN CELL VOLUME 109.7 FL (80.0-100.0); MEAN CORPUSCULAR HEMOGLOBIN 38.4 PG (27.0-34.0); MEAN CORPUSCULAR HGB CONC 35.1 % (32.0-36.0); PLATELET COUNT 75 TH/MM3 (150-450); RED BLOOD COUNT 3.09 MIL/MM3 (4.50-5.90); RED CELL DISTRIBUTION WIDTH 18.2 % (11.6-17.2); WHITE BLOOD COUNT 19.1 TH/MM3 (4.0-11.0)
[2017-05-18 06:26] LABS: REVIEW FLAG FINAL
[2017-05-18 06:27] LABS: CHLORIDE 112 MEQ/L (98-107); POTASSIUM 3.8 MEQ/L (3.5-5.1); SODIUM (NA) 140 MEQ/L (136-145)
[2017-05-18 06:31] LABS: ANION GAP 9 MEQ/L (5-15); BICARBONATE 19.4 MEQ/L (21.0-32.0); BLOOD UREA NITROGEN 70 MG/DL (7-18)
[2017-05-18 06:34] LABS: ALT (GPT) 417 U/L (12-78); AST (GOT) 439 U/L (15-37); GLOMERULAR FILTRATION RATE 49 ML/MIN (>89)
[2017-05-18 06:35] LABS: TOTAL BILIRUBIN ADULT 21.4 MG/DL (0.2-1.0)
[2017-05-18 06:36] LABS: ALKALINE PHOSPHATASE 394 U/L (45-117)
[2017-05-18 08:00] VITALS: BP 84/60; PULSE 67; RESP 16; TEMP 96.3; O2SAT 98
[2017-05-18] MEDS: NADOLOL 20 MG TAB PO SCH (08:14)
[2017-05-18] MEDS: THIAMINE HCL 100 MG TAB PO SCH (08:15)
[2017-05-18] MEDS: PENTOXIFYLLINE 400 MG CONTROLLED RELEASE TAB PO SCH (08:15)
[2017-05-18] MEDS: POTASSIUM CHLORIDE 20 MEQ CONTROLLED RELEASE TAB PO SCH (08:15)
[2017-05-18] MEDS: SPIRONOLACTONE 25 MG TAB PO SCH (08:15)
[2017-05-18] MEDS: predniSONE 10 MG TAB PO SCH (08:15)
[2017-05-18] MEDS: NYSTATIN 100,000 UNIT/GM CREAM 15 GM TOPICAL SCH (08:16)
--- NOTE | 2017-05-18 11:10 | HHI.GIFU ---
Subjective Remarks Patient laying in bed, seems to be comfortable, he said he is more sleepy now, still very jaundice Objective Vitals I&O Vital Signs Date Time Temp Pulse Resp B/P (MAP) Pulse Ox O2 Delivery O2 Flow Rate FiO2 05/18/17 08:00 96.3 67 16 84/60 (68) 98 05/17/17 20:00 97.4 65 20 88/58 (68) 100 I/O 05/17/17 05/17/17 05/17/17 05/18/17 05/18/17 05/18/17 07:00 15:00 23:00 07:00 15:00 23:00 Intake Total 498 ml 240 ml Output Total 425 ml 800 ml 350 ml Balance -425 ml -302 ml -110 ml Intake Oral 240 ml IV Total 498 ml Output Urine Total 425 ml 800 ml 350 ml # Voids 2 2 # Bowel Movements 2 2 Laboratory Laboratory Tests Test 05/17/17 13:17 05/18/17 05:25 Prothrombin Time 18.1 Prothromb Time International Ratio 1.6 White Blood Count 19.1 Red Blood Count 3.09 Hemoglobin 11.9 Hematocrit 33.8 Mean Corpuscular Volume 109.7 Mean Corpuscular Hemoglobin 38.4 Mean Corpuscular Hemoglobin Concent 35.1 Red Cell Distribution Width 18.2 Platelet Count 75 Mean Platelet Volume 12.7 Blood Urea Nitrogen 70 Creatinine 1.50 Random Glucose 114 Total Protein 5.9 Albumin 1.2 Calcium Level 8.5 Alkaline Phosphatase 394 Aspartate Amino Transf (AST/SGOT) 439 Alanine Aminotransferase (ALT/SGPT) 417 Total Bilirubin 21.4 Sodium Level 140 Potassium Level 3.8 Chloride Level 112 Carbon Dioxide Level 19.4 Anion Gap 9 Estimat Glomerular Filtration Rate 49 Date/Time Source Procedure Growth Status 04/21/17 19:35 Blood Peripheral Aerobic Blood Culture - Final NO GROWTH IN 5 DAYS Complete 04/21/17 19:35 Blood Peripheral Anaerobic Blood Culture - Final NO GROWTH IN 5 DAYS Complete 04/21/17 21:55 Urine Catheterized Urine Urine Culture - Final 50-100,000 CFU/ML MIXED ROZ... Complete Physical Exam HEENT: Normocephalic; atraumatic; + scleral icterus . Sleepy NECK: Neck is supple. CHEST: CTA CARDIAC: RRR with no murmur gallop or rubs. ABDOMEN: Soft, nondistended, nontender; bowel sounds are present EXTREMITIES: No edema. SKIN: + jaundice FLARER: Alert and awake today. [place] to person, place, and situation. Assessment and Plan Plan patient was seen and examined, agree with above note, patient has high iron saturation, could be reaction to alcohol but also it could be hemochromatosis had a discussion with the family and his mother told me that she had some issue when she was diagnosed with breast cancer in the past and she was told that she might have iron overload. We will obtain gene for evaluation for hemochromatosis also patient would like to go to the in [facility] for further management and possible evaluation for transplant we will ask case management to to help with that 05/18/2017 patient is about the same, stable, sleepy, no sign of active bleeding , hemachromatosis lab still pending I had a long discussion with patient's mother about hospice and she had few question if they can continue the medication doing hospice also we talked about his candidacy for liver transplant which at this point he is not Acute alcoholic hepatitis At this point I think the prognosis is very poor We will continue with current supportive care and continue with prednisone and pentoxifylline Monitor labs Per family they are going to go ahead and meet with the hospitalist service If continued to be sleepy he will need ammonia level checked tomorrow Nadine Lucas MD May 18, 2017 11:10
--- NOTE | 2017-05-18 11:22 | HHI.PR ---
Subjective Remarks Follow up for alcoholic liver failure. Patient denies any fevers or chills, chest pain, cough, shortness of breath, abdominal pain, vomiting, or diarrhea. Objective Vitals Vital Signs Date Time Temp Pulse Resp B/P (MAP) Pulse Ox O2 Delivery O2 Flow Rate FiO2 05/18/17 08:00 96.3 67 16 84/60 (68) 98 05/17/17 20:00 97.4 65 20 88/58 (68) 100 I/O 05/17/17 05/17/17 05/17/17 05/18/17 05/18/17 05/18/17 07:00 15:00 23:00 07:00 15:00 23:00 Intake Total 498 ml 240 ml Output Total 425 ml 800 ml 350 ml Balance -425 ml -302 ml -110 ml Intake Oral 240 ml IV Total 498 ml Output Urine Total 425 ml 800 ml 350 ml # Voids 2 2 # Bowel Movements 2 2 Result Diagram: 05/18/1725 05/18/17524 Objective Remarks GENERAL: Well-developed patient in no apparent distress. SKIN: Significantly jaundiced. EYES: Scleral icterus. CARDIOVASCULAR: Regular rate and rhythm. RESPIRATORY: CTAB but breath sounds diminished. GASTROINTESTINAL: Normoactive bowel sounds. Abdomen mildly distended but soft and non-tender. MUSCULOSKELETAL: No lower extremity edema bilaterally. NEUROLOGICAL: Appears slightly sleepy but is awake. Patient knows he is at the hospital, but when I ask him the city or state he states "It's the same place it 's always been". States it's May or June. Does not know the year. Normal speech. PSYCHIATRIC: Normal mood. Urinary Catheter: No Vascular Central Line Catheter: No A/P Problem List: (1) Acute alcoholic hepatitis ICD Code: K70.10 - Alcoholic hepatitis without ascites (2) Fall ICD Code: W19.XXXA - Unspecified fall, initial encounter Status: Acute (3) Hyperbilirubinemia ICD Code: E80.6 - Other disorders of bilirubin metabolism Status: Acute (4) Candidiasis of scrotum ICD Code: B37.49 - Other urogenital candidiasis (5) Electrolyte disturbance ICD Code: E87.8 - Other disorders of electrolyte and fluid balance, not elsewhere classified (6) Liver function failure ICD Code: K72.90 - Hepatic failure, unspecified without coma (7) Hyperammonemia ICD Code: E72.20 - Disorder of urea cycle metabolism, unspecified Status: Acute (8) Alcohol withdrawal ICD Code: F10.239 - Alcohol dependence with withdrawal, unspecified Status: Acute (9) Generalized weakness ICD Code: R53.1 - Weakness (10) Thrombocytopenia ICD Code: D69.6 - Thrombocytopenia, unspecified Status: Acute (11) Hyponatremia ICD Code: E87.1 - Hypo-osmolality and hyponatremia Status: Acute (12) Coagulopathy ICD Code: D68.9 - Coagulation defect, unspecified Status: Acute (13) Transaminitis ICD Code: R74.0 - Nonspecific elevation of levels of transaminase and lactic acid dehydrogenase [LDH] Status: Acute Assessment and Plan Alcoholic liver disease/acute liver failure with acute alcoholic hepatitis and severe hyperbilirubinemia, coagulopathy, thrombocytopenia, hepatic encephalopathy, and alcohol-related cognitive impairment/dementia: -Continue Corgard -Continue Pentoxifylline. -Continue Prednisone. -Continue Spironolactone. - was reconsulted per family request and re-evaluated patient on 05/14, ordering further lab workup to rule out other etiologies. Awaiting outside records from [facility]. -05/18: Platelets stable. Tbili stable but remaining LFTs continue to trend upward. Ammonia level normal. Dr. Lucas , has spoken with patient's mother today informing her that patient is not a candidate for liver transplant at this time. Parents to meet with Hospice today. Leukocytosis: Stable -05/18: WBC 19.2-->19.1. No symptoms of infection. Remains afebrile. Likely due to steroids. Follow. WES: -05/15: BUN 62. Spironolactone decreased to 12.5 mg daily. -05/17: Repeat BMP today with BUN of 64. Cr stable at 1.20. Patient may be dehydrated as he only had 425 mL urine output documented over the past 24 hours and is hypotensive this morning with increased Na and Cl. 500 mL NS bolus ordered. -05/18: Previously only had pre-renal azotemia, but now has WES with BUN/Cr of 70 /1.50 after receiving IVF last night. Likely related to hepatic disease. Urine output good over the last [address] Craft. Will monitor intake and output and renal function. Hypotensive this morning. Manual BP 84/ 58. Patient does not have an IV as he pulled it out last night. Discussed with Dr. Craft. Will encourage po hydration. -Repeat am BMP Hypernatremia & hyperchloremia: Improved. -05/18: Na wnl. Cl decreased to 112 s/p IVF. Generalized weakness/Falls: status post fall at home and in hospital. Likely deconditioning secondary to alcoholism. CT brain with no acute abnormality. -Fall precautions/bed alarm -Continue PT -Pending rehab placement. Severe hyponatremia: Resolved. Secondary to cirrhosis. Alcohol withdrawal syndrome: Resolved Candidiasis and edema of scrotum: Resolved. -Continue nystatin cream and elevation. Continue Remeron for suspected depression causing decreased appetite. DVT prophylaxis with SCDs; unable to do chemoprophylaxis due to low platelets. Hospice later met with patient's parents and they are agreeable to this. Patient to be discharged with Hospice. Discharge Planning Per speech therapy, patient will need supervision after discharge secondary to cognitive deficits. 05/13/17: CM spoke with family and family friend, physician, Dr. Arevalo. CM informed them that while patient lacks capacity to make medical decisions, those decisions would fall to the parents. CM continues to follow for placement in SNF. 05/14/17: Adama Koch PA-C spoke with family, and Dr. Arevalo regarding patient's clinical condition. 05/17/17: Dr. Craft spoke with parents. Patient now DNR. Hospice consult placed. 05/18/17: GI spoke with patient's mother. Patient not a transplant candidate at this time. Parents met with Hospice, to be discharged under their care. Problem Qualifiers (1) Alcohol withdrawal: Qualified Codes: F10.230 - Alcohol dependence with withdrawal, uncomplicated Marcela Mora May 18, 2017 11:22
--- NOTE | 2017-05-18 13:35 | HHI.DCPOC ---
Discharge Care Plan Diagnosis: (1) Liver failure Goals to Promote Your Health * To prevent worsening of your condition and complications * To maintain your health at the optimal level Directions to Meet Your Goals Take your medications as prescribed Follow your dietary instruction Follow activity as directed Keep your appointments as scheduled Take your immunizations and boosters as scheduled If your symptoms worsen call your PCP, if no PCP go to Urgent Care Center or Emergency Room Smoking is Dangerous to Your Health. Avoid second hand smoke Call the 24-hour hour crisis hotline for domestic abuse at Rafia Craft MD May 18, 2017 13:35
--- NOTE | 2017-05-18 18:44 | HHI.DS ---
Discharge Summary Admission Date Apr 21, 2017 at 22:43 Discharge Date: May 18, 2017 Admitting Diagnosis hyperbilirubinemia, hepatic steatosis, alcohol withdrawal (1) Acute alcoholic hepatitis ICD Code: K70.10 - Alcoholic hepatitis without ascites Diagnosis: Principal (2) Liver function failure ICD Code: K72.90 - Hepatic failure, unspecified without coma Diagnosis: Principal (3) Hyperbilirubinemia ICD Code: E80.6 - Other disorders of bilirubin metabolism Diagnosis: Principal Status: Acute (4) Hyperammonemia ICD Code: E72.20 - Disorder of urea cycle metabolism, unspecified Diagnosis: Principal Status: Acute (5) Fall ICD Code: W19.XXXA - Unspecified fall, initial encounter Diagnosis: Principal Status: Acute (6) Candidiasis of scrotum ICD Code: B37.49 - Other urogenital candidiasis Diagnosis: Principal (7) Electrolyte disturbance ICD Code: E87.8 - Other disorders of electrolyte and fluid balance, not elsewhere classified Diagnosis: Principal (8) Alcohol withdrawal ICD Code: F10.239 - Alcohol dependence with withdrawal, unspecified Diagnosis: Principal Status: Acute (9) Generalized weakness ICD Code: R53.1 - Weakness Diagnosis: Principal (10) Thrombocytopenia ICD Code: D69.6 - Thrombocytopenia, unspecified Diagnosis: Principal Status: Acute (11) Coagulopathy ICD Code: D68.9 - Coagulation defect, unspecified Diagnosis: Principal Status: Acute (12) Hyponatremia ICD Code: E87.1 - Hypo-osmolality and hyponatremia Diagnosis: Principal Status: Acute (13) Hypernatremia ICD Code: E87.0 - Hyperosmolality and hypernatremia Diagnosis: Principal (14) Hyperchloremia ICD Code: E87.8 - Other disorders of electrolyte and fluid balance, not elsewhere classified Diagnosis: Principal (15) WES (acute kidney injury) ICD Code: N17.9 - Acute kidney failure, unspecified Diagnosis: Principal (16) Hypokalemia ICD Code: E87.6 - Hypokalemia Diagnosis: Principal (17) Leukocytosis ICD Code: D72.829 - Elevated white blood cell count, unspecified Diagnosis: Principal Procedures None Brief History - From Admission This is a 52-year-old male with past medical history of alcoholism who presented to the ER for evaluation of weakness. The patient states that he fell out of the chair home and was unable to get up and so he called [facility]. He denied injury or loss of consciousness. The patient states he is a heavy drinker and has been told that he has liver disease. He states his last drink was 4 days ago. He does endorse some hallucinations and thought he saw Rhonda in his room this morning. He denies history of alcohol withdrawal seizures or delirium tremens. He denies Tylenol use. The emergency department he was found to have sodium of 118 and elevation of liver enzymes with severe hyperbilirubinemia. The patient also complains of rash and pain around his scrotum. The patient denies pedal edema. He does endorse 25 pound weight loss over the past year which was unintentional. The patient denies blood in his stools, history of varices. Denies abdominal pain nausea vomiting diarrhea fevers or chills. CBC/BMP: 05/18/17 0525 05/18/17 0525 Significant Findings Laboratory Tests Test 05/17/17 04:50 05/17/17 13:17 05/18/17 05:25 05/18/17 11:35 White Blood Count 19.2 TH/MM3 (4.0-11.0) 19.1 TH/MM3 (4.0-11.0) Red Blood Count 3.07 MIL/MM3 (4.50-5.90) 3.09 MIL/MM3 (4.50-5.90) Hemoglobin 11.9 GM/DL (13.0-17.0) 11.9 GM/DL (13.0-17.0) Hematocrit 33.5 % (39.0-51.0) 33.8 % (39.0-51.0) Mean Corpuscular Volume 109.2 FL (80.0-100.0) 109.7 FL (80.0-100.0) Mean Corpuscular Hemoglobin 38.6 PG (27.0-34.0) 38.4 PG (27.0-34.0) Red Cell Distribution Width 18.9 % (11.6-17.2) 18.2 % (11.6-17.2) Platelet Count 73 TH/MM3 (150-450) 75 TH/MM3 (150-450) Mean Platelet Volume 12.4 FL (7.0-11.0) 12.7 FL (7.0-11.0) Neutrophils (%) (Auto) 83.8 % (16.0-70.0) Neutrophils # (Auto) 16.1 TH/MM3 (1.8-7.7) Platelet Estimate LOW (NORMAL) Platelet Morphology Comment ENLARGED (NORMAL) Blood Urea Nitrogen 64 MG/DL (7-18) 70 MG/DL (7-18) Random Glucose 113 MG/DL (74-106) 114 MG/DL (74-106) Chloride Level 116 MEQ/L (98-107) 112 MEQ/L (98-107) Estimat Glomerular Filtration Rate 63 ML/MIN (>89) 49 ML/MIN (>89) Total Bilirubin 21.4 MG/DL (0.2-1.0) 21.4 MG/DL (0.2-1.0) Direct Bilirubin 17.4 MG/DL (0.0-0.2) Indirect Bilirubin 4.0 MG/DL (0.0-0.8) Aspartate Amino Transf (AST/SGOT) 420 U/L (15-37) 439 U/L (15-37) Alanine Aminotransferase (ALT/SGPT) 379 U/L (12-78) 417 U/L (12-78) Alkaline Phosphatase 377 U/L (45-117) 394 U/L (45-117) Total Protein 6.0 GM/DL (6.4-8.2) 5.9 GM/DL (6.4-8.2) Albumin 1.2 GM/DL (3.4-5.0) 1.2 GM/DL (3.4-5.0) Prothrombin Time 18.1 SEC (9.8-11.6) Creatinine 1.50 MG/DL (0.60-1.30) Carbon Dioxide Level 19.4 MEQ/L (21.0-32.0) Imaging Last Impressions Head CT 05/06/17 0000 Signed Impressions: Service Date/Time: Saturday, May 06, 2017 09:36 - CONCLUSION: No acute intracranial abnormality is identified. Bear Coffey MD Chest X-Ray 04/21/17 1914 Signed Impressions: Service Date/Time: Friday, April 21, 2017 20:09 - CONCLUSION: No acute disease. Mich Dozier MD Abdomen/Pelvis CT 04/21/[id number] Signed Impressions: Service Date/Time: Friday, April 21, 2017 21:33 - CONCLUSION: 1. Hepatomegaly with diffuse severe hypodensity characteristic of steatosis. 2. No evidence of biliary obstructive disease. 3. 10 mm left renal cyst. 4. Otherwise unremarkable exam. Mich Dozier MD PE at Discharge GENERAL: Well-developed patient in no apparent distress. SKIN: Significantly jaundiced. EYES: Scleral icterus. CARDIOVASCULAR: Regular rate and rhythm. RESPIRATORY: CTAB but breath sounds diminished. GASTROINTESTINAL: Normoactive bowel sounds. Abdomen mildly distended but soft and non-tender. MUSCULOSKELETAL: No lower extremity edema bilaterally. NEUROLOGICAL: Appears slightly sleepy but is awake. Patient knows he is at the hospital, but when I ask him the city or state he states "It's the same place it 's always been". States it's May or June. Does not know the year. Normal speech. PSYCHIATRIC: Normal mood. Hospital Course Patient initially presented to the ED with fall and weakness and was found to have significant hyponatremia and elevation of LFTs including T bili. CT of the abdomen with hepatomegaly and steatosis. Patient is an alcoholic and was experiencing withdrawal upon admission. Thrombocytopenia attributed to liver disease. GI evaluated the patient diagnosing him with alcoholic hepatitis. He is on treatment with Corgard, pentoxifylline, prednisone, and spironolactone. Patient had an elevated ammonia level upon admission and hepatic encephalopathy. 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 Severe hyponatremia had resolved, but patient more recently has had hypernatremia and hyperchloremia which have improved. He more recently has had increasing azotemia. It was thought this may be due to diuretic which was decreased in dose , but this has not made a difference. Patient was even given IV fluids last night and creatinine became elevated today; it had been previously normal throughout admission. Renal impairment is likely related to hepatic disease. Patient has had leukocytosis attributed to steroid use; it has remained stable since yesterday and there are no new signs of infection. Patient did not eat breakfast or lunch today. GI physician, Dr. Lucas, spoke with patient's mother today informing them that patient is not a candidate for transplant at this time. LFTs continue to increase. He has poor prognosis. Patient's parents elected for Hospice Care. Patient is discharged with Hospice care today. Pt Condition on Discharge: Deteriorating Discharge Disposition: Hospice/Med Facility Discharge Time: <= 30 minutes Discharge Instructions DIET: Follow Instructions for: As Tolerated, No Restrictions Additional Diet Instructions: NO ALCOHOL Activities you can perform: Regular-No Restrictions Medication Profile: No Active Prescriptions or Reported Meds Additional Information Discharged with Hospice. Marcela Mora May 18, 2017 18:44
[2017-05-21 08:57] LABS: HEREDITARY HEMOCHROM SPECIMEN WB Whole Blood
== END 2017-05-18 15:14 | disposition hospice, inpatient (51) | DRG 433 ==
LOC: PHED 19:04 → PHEDA 22:43 → PHEDH 04-22 06:29 → PHICU 04-22 08:45 → PH5A 04-27 13:05 → PH3A 05-06 23:46 → PH3B 05-13 01:10
PROVIDERS: ADMIT Hospitalist; ATTEND Hospitalist
DX: K70.10 Alcoholic hepatitis without ascites (principal); E87.1 Hypo-osmolality and hyponatremia; K70.40 Alcoholic hepatic failure without coma; N17.9 Acute kidney failure, unspecified; E87.0 Hyperosmolality and hypernatremia; F10.27 Alcohol dependence with alcohol-induced persisting dementia; D68.9 Coagulation defect, unspecified; F10.230 Alcohol dependence with withdrawal, uncomplicated; B37.49 Other urogenital candidiasis; D69.59 Other secondary thrombocytopenia; N28.1 Cyst of kidney, acquired; Z78.1 Physical restraint status; F17.210 Nicotine dependence, cigarettes, uncomplicated; Z51.5 Encounter for palliative care; R21 Rash and other nonspecific skin eruption; R63.4 Abnormal weight loss; E80.7 Disorder of bilirubin metabolism, unspecified; E87.6 Hypokalemia; K59.00 Constipation, unspecified; K74.60 Unspecified cirrhosis of liver; K76.0 Fatty (change of) liver, not elsewhere classified; F32.9 Major depressive disorder, single episode, unspecified; N50.89 Other specified disorders of the male genital organs; R06.2 Wheezing; W07.XXXA Fall from chair, initial encounter; Y92.009 Unspecified place in unspecified non-institutional (private) residence as the place of occurrence of the external cause; D72.829 Elevated white blood cell count, unspecified; T38.0X5A Adverse effect of glucocorticoids and synthetic analogues, initial encounter; Y92.239 Unspecified place in hospital as the place of occurrence of the external cause; E87.8 Other disorders of electrolyte and fluid balance, not elsewhere classified; T50.2X5A Adverse effect of carbonic-anhydrase inhibitors, benzothiadiazides and other diuretics, initial encounter; E86.0 Dehydration
CPT/HCPCS: 70450; 71010; 74177; 76937; 80048; 80053; 80074; 80076; 80307; 81001; 81256; 82010; 82105; 82140; 82248; 82390; 82607; 82728; 82948; 83520; 83540; 83550; 83605; 83735; 84100; 85007; 85025; 85027; 85610; 85730; 86038; 86255; 86376; 87040; 87086; 93005; 94150; 94640; 94664; 96360; J1630; J1940; J2060; J2543; J2920; J3411; J7030; J7040; J7050; J7512; Q9967